=== PATIENT | female | born 1965 | race Caucasian/White ===

== ENCOUNTER 2018-04-15 11:15 | Inpatient (IN) ==
--- NOTE | 2018-04-15 11:30 | Emergency Department Note ---
Disposition Clinical Impression: Upper GI bleed Disposition: Admitted As Inpatient Condition: Good Instructions: Gastrointestinal Bleeding (ED) Referrals: Leo,Bridget Tesfaye CNP [Primary Care Provider] - Time of Disposition: 14:56 General Adult HPI - General Stated complaint: Fall, pain Time Seen by Provider: 04/15/18 11:22 Source: patient Mode of arrival: EMS Limitations: no limitations - History of Present Illness HPI Narrative: This is a 52-year-old female patient who is brought in by EMS because of worsening left-sided chest pain. She states she had 6 days prior to arrival and was told that she had broken to labs. Pain is pleuritic in character. In addition, she states that she has had dark stools in spite of the fact that she stopped taking her iron supplement. She is concerned about possible anemia. - Related Data Home Medications Medication Instructions Recorded Confirmed Cyclobenzaprine [Flexeril] 10 mg PO TID 09/15/15 06/23/16 Ferrous Sulfate 325 mg PO TID 09/15/15 06/23/16 Folic Acid 2 mg PO DAILY 09/15/15 06/23/16 Furosemide [Lasix] 20 mg PO DAILY PRN 09/15/15 06/23/16 Gabapentin [Neurontin] 600 mg PO TID 09/15/15 06/23/16 LORazepam [Ativan] 1 mg PO BID PRN 09/15/15 06/23/16 Nortriptyline HCl 100 mg PO HS 09/15/15 06/23/16 Cyanocobalamin (B-12) [Vitamin B12] 1,000 mcg IM QMONTH 01/31/16 06/23/16 DULoxetine [Cymbalta] 30 mg PO DAILY 01/31/16 06/23/16 Sucralfate [Carafate] 1 gm PO TIDAC 06/13/16 06/23/16 Oxycodone HCl/Acetaminophen 1 each PO Q6H PRN 06/23/16 06/23/16 [Percocet 7.5-325 mg Tablet] Previous Rx's Medication Instructions Recorded Pantoprazole [Protonix] 40 mg PO DAILY #30 vial 09/17/15 Cyclobenzaprine [Flexeril] 10 mg PO HS #12 tablet 04/09/18 Ibuprofen 800 mg PO TID #30 tablet 04/09/18 Levofloxacin [Levaquin] 750 mg PO DAILY #7 tablet 04/13/18 Allergies Allergy/AdvReac Type Severity Reaction Status Date / Time No Known Allergies Allergy Verified 04/15/18 11:28 All systems ED: reviewed and negative except as stated. Cardiovascular: Reports: chest pain Respiratory: Reports: dyspnea Gastrointestinal: Reports: other (Dark stools) Past Medical History - Past Medical History Medical history: Reports: cardiomyopathy, GERD, hypertension, other Surgical history: Reports: hysterectomy Psychiatric history: Reports: anxiety, depression MAMMALOGIST history: Reports: no MAMMALOGIST history - Social History Smoking Status: Current every day smoker Smokeless Tobacco Status: No Alcohol use: Reports: none Drug use: Reports: none Physical Exam - General Limitations: no limitations General appearance: alert, in no apparent distress - Head Head exam: atraumatic, normocephalic, normal inspection - Eye Eye exam: Present: normal appearance, PERRL, EOMI - Chest Chest inspection: Present: normal inspection, symmetric chest wall rise, tenderness (Tenderness on the left lateral chest wall). Absent: rash, abscess - Respiratory Respiratory exam: Present: normal lung sounds bilaterally. Absent: respiratory distress, wheezes - Cardiovascular Cardiovascular exam: Present: regular rate, normal rhythm, normal heart sounds - Abdominal Exam Abdominal exam: Present: soft, Non-Tender. Absent: tenderness, distention, guarding, rebound, rigidity - Rectal Exam Twister In present during exam: Yes Rectal exam: Present: normal inspection, normal rectal tone, black stool - Extremities Exam Extremities exam: Present: normal inspection, pedal edema (There is trace bilateral pedal edema the malleoli). Absent: tenderness - Back Exam Back exam: Absent: CVA tenderness (R), CVA tenderness (L) - Neurological Exam Neurological exam: Present: alert, oriented X3 - Psychiatric Psychiatric exam: Present: normal affect, normal mood - Skin Skin exam: Present: warm, dry, intact, normal color Course Course Narrative: This is a 52-year-old female with report of worsening left-sided pleuritic chest pain. She also reports dark stools concerning for GI bleeding. Vital Signs Temperature 98.1 F 04/15/18 11:27 Pulse Rate 84 04/15/18 11:27 Respiratory Rate 20 04/15/18 11:27 Blood Pressure 129/82 04/15/18 11:27 O2 Sat by Pulse Oximetry 100 04/15/18 11:27 Temperature 98.1 F 04/15/18 11:27 Pulse Rate 95 04/15/18 13:00 Respiratory Rate 20 04/15/18 13:00 Blood Pressure 130/90 04/15/18 13:00 O2 Sat by Pulse Oximetry 97 04/15/18 13:00 Oxygen Delivery Oxygen Delivery Room Air Medical Decision Making - MDM Narrative Medical decision making narrative: This is a 52-year-old female with an upper GI bleed. I discussed her case with Dr. soriano, covering for gastroenterology, who asked that she be admitted to medicine and stated that he will consult. Consult was submitted for him. I discussed her case with the on-call hospitalist, who accepted her for admission. - Lab Data Lab results reviewed: Yes I reviewed the patient's lab results. Lab results narrative: CBC shows anemia at 7.2 and 24.6 BMP was unremarkable Hemoccult was positive Troponin was low Result diagrams: 04/15/18 11:53 04/15/18 11:53 Lab Results 04/15/18 04/15/18 04/15/18 Range/Units 11:53 11:53 12:24 WBC 8.0 (4.3-11.1) K/mcL RBC 2.82 L (3.82-4.97) M/mcL Hgb 7.2 L (11.5-15.4) g/dL Hct 24.6 L (35.3-44.9) % MCV 87.2 (83.0-100.0) fL MCH 25.5 L (28.0-33.3) pg MCHC 29.3 L (31.6-35.5) g/dL RDW 17.8 H (11.5-14.5) % Plt Count 232 (140-400) K/mcL MPV 8.6 L (9.4-12.4) fL Immature Gran % 1.3 (0-4) % Seg Neutrophils % 76.5 % Lymphocytes % 14.2 % Monocytes % 5.2 % Eosinophils % 2.3 % Basophils % 0.5 % Neutrophils # 6.1 (1.6-8.9) K/mcL Lymphocytes # 1.1 (0.6-4.6) K/mcL Monocytes # 0.4 (0.0-1.3) K/mcL Eosinophils # 0.2 (0.0-0.6) K/mcL Basophils # 0.0 (0.0-0.2) K/mcL Nucleated RBCs/100 WBC 0.4 H (0) /100 WBC Sodium 140 (136-145) mEq/L Potassium 4.0 (3.5-5.1) mEq/L Chloride 108 H (98-107) mEq/L Carbon Dioxide 27 (23-29) mEq/L BUN 18 (6-20) mg/dL Creatinine 0.77 (0.60-1.20) mg/dL Est GFR ( Amer) > 60 (> 60) Est GFR (Non-Af Amer) > 60 (> 60) BUN/Creatinine Ratio 23 (6-26) Glucose 98 (70-105) mg/dL Calculated Osmolality 292 (280-300) Calcium 8.5 L (8.6-10.3) mg/dL Troponin I < 0.03 (< 0.04) ng/mL Stool Occult Bld Scrn Positive A (Negative) - EKG Data EKG #1 EKG attestation: Yes I reviewed and interpreted this EKG. EKG results narrative: ECG showed sinus rhythm at 93 bpm, normal intervals, normal axis, slight ST depressions in V5 and V6, slight ST depression in lead 2 and 1, normal T waves Critical Care Time Critical Care Time: Yes Total Critical Care Time: 15 Attestation: 15 minutes of critical care time was invested independent of other billable procedures
[2018-04-15 12:13] LABS: Basophils % 0.5 %; Eosinophils # 0.2 K/mcL (0.0-0.6); Eosinophils % 2.3 %; Hematocrit 24.6 % (35.3-44.9); Hemoglobin 7.2 g/dL (11.5-15.4); Immature Granulocytes % 1.3 % (0-4); Lymphocytes # 1.1 K/mcL (0.6-4.6); Lymphocytes % 14.2 %; Mean Corpuscular HGB Conc 29.3 g/dL (31.6-35.5); Mean Corpuscular Hemoglobin 25.5 pg (28.0-33.3); Mean Corpuscular Volume 87.2 fL (83.0-100.0); Mean Platelet Volume 8.6 fL (9.4-12.4); Monocytes # 0.4 K/mcL (0.0-1.3); Monocytes % 5.2 %; Neutrophils # 6.1 K/mcL (1.6-8.9); Nucleated Red Blood Cells 0.4 /100 WBC (0); Platelet Count 232 K/mcL (140-400); Red Blood Count 2.82 M/mcL (3.82-4.97); Red Cell Distribution Width 17.8 % (11.5-14.5); Segmented Neutrophils % 76.5 %
[2018-04-15] MEDS ORDERED: *HR* FentaNYL (PF) 100 MCG/2 ML VIAL IVP ONE (12:24)
[2018-04-15 12:28] LABS: Troponin I < 0.03 ng/mL (< 0.04)
[2018-04-15 12:38] LABS: Calcium 8.5 mg/dL (8.6-10.3); Carbon Dioxide 27 mEq/L (23-29); Chloride 108 mEq/L (98-107); Glucose 98 mg/dL (70-105); Sodium 140 mEq/L (136-145); eGFR For Non-African Americans > 60 (> 60)
[2018-04-15 13:22] LABS: BUN/Creatinine Ratio 23 (6-26); Blood Urea Nitrogen 18 mg/dL (6-20); Osmolality,Calculated 292 (280-300)
[2018-04-15] MEDS ORDERED: Naloxone 0.4 MG/ML INJ IVP PRN (16:45)
--- NOTE | 2018-04-15 16:54 | Internal Med History&Physical ---
Date of Encounter: 04/15/18 Time of Encounter: 16:52 Internal Medicine - H&P: HPI Admitted From: Home Plans for Post Hospital Care: Home History of present illness: Ms. Boswell is a 52 year old female female who is brought in by EMS because of worsening left-sided chest pain. She states pain stasrted 6 days prior to arrival and was told that she had broken ribs. Pain is pleuritic in character. In addition, she states that she has had dark stools in spite of the fact that she stopped taking her iron supplement. She is concerned about possible anemia. At the ED, her vital signs were stable, labs notable for low hemoglobin (7.2), stool occult blood test was positive. She reported chest pain has resolved after arrival. Dr. Wilson was consulted for possible GI bleeding. Patient will be admitted for observation. Past Med Surg Social Fam HX - Past Medical History Medical history: cardiomyopathy, GERD, hypertension, other Additional medical history: ANEMIA Psychiatric history: anxiety, depression - Past Surgical History Surgical History: hysterectomy Additional surgical history: RIGHT KNEE - Social History Smoking Status: Current every day smoker Smokeless Tobacco Status: No Alcohol use: none Drug use: none - Family History Grandmother Living Status: Hx Family Cardiac Disorders: Yes Mother Living Status: Still Living Hx Family Cardiac Disorders: No Hx Family Respiratory Disorders: No Father Living Status: Still Living Hx Family Cardiac Disorders: No Hx Family Respiratory Disorders: No Internal Medicine - H&P: Meds Cyclobenzaprine [Flexeril] 10 mg PO TID 09/15/15 [History] Furosemide [Lasix] 20 mg PO DAILY PRN 09/15/15 [History] Nortriptyline HCl 100 mg PO HS 09/15/15 [History] Oxycodone HCl/Acetaminophen [Percocet 7.5-325 mg Tablet] 1 each PO Q6H PRN 06/23 [History] Ferrous Sulfate [Iron] 325 mg PO TID 04/15/18 [History] Gabapentin [Neurontin] 800 mg PO TID 04/15/18 [History] 3 Allergy/AdvReac Type Severity Reaction Status Date / Time No Known Allergies Allergy Verified 04/15/18 11:28 All Systems PM: A 10-system review of systems was performed and is negative for pertinent findings except as documented above in the HPI. Review of systems: REVIEW OF SYSTEMS: CONSTITUTIONAL: No weight loss, fever, chills, weakness or fatigue. HEENT: Eyes: No visual loss, blurred vision, double vision or yellow sclerae. Ears, Nose, Throat: No hearing loss, sneezing, congestion, runny nose or sore throat. SKIN: No rash or itching. CARDIOVASCULAR: see HPI. RESPIRATORY: No shortness of breath, cough or sputum. GASTROINTESTINAL: No anorexia, nausea, vomiting or diarrhea. see HPI. GENITOURINARY: No dysuria, urgency, or frequency. NEUROLOGICAL: No headache, dizziness, syncope, paralysis, ataxia, numbness or tingling in the extremities. No change in bowel or bladder control. MUSCULOSKELETAL: No muscle, back pain, joint pain or stiffness. HEMATOLOGIC: No anemia, bleeding or bruising. LYMPHATICS: No enlarged nodes. No history of splenectomy. PSYCHIATRIC: No history of depression or anxiety. ENDOCRINOLOGIC: No reports of sweating, cold or heat intolerance. No polyuria or polydipsia. - Constitutional Vitals: Temp Pulse Resp BP Pulse Ox 98.1 F 96 20 146/91 99 04/15/18 11:27 04/15/18 16:30 04/15/18 16:30 04/15/18 16:30 04/15/18 16:30 General appearance: Present: cooperative, A&O X 3, answers questions appropriately Exam: PHYSICAL EXAMINATION: GENERAL APPEARANCE: The patient is alert, oriented and in no acute distress. HEENT: Head is normocephalic. The sinuses are nontender. Pupils are equal and reactive. The nares are patent. Oropharynx clear without lesions. NECK: Supple without lymphadenopathy. HEART: Regular rate and rhythm. LUNGS: No crackles or wheezes are heard. ABDOMEN: Soft, nontender, nondistended with good bowel sounds heard. Inguinal area is normal. EXTREMITIES: Without cyanosis, clubbing or edema. NEUROLOGICAL: Gross nonfocal. SKIN: Warm and dry without any rash. Internal Med - H&P Results - Labs CBC & Chem 7: 04/15/18 11:53 04/15/18 11:53 - Assessment and plan (1) Chest pain Current Visit: Yes Status: Acute Assessment and plan: 52-year-old female with no history of CAD presented with on and off left-sided chest pain. She also found having severe anemia with hemoglobin 7.2. However, troponin and EKG both insignificant. - Risk factor for CAD including obesity, smoking, and hypertension. However, patient never had a history of CAD. - We will continue cycle troponin, EKG as needed, telemetry monitoring. Will correct severe anemia ruled out demand ischemia related chest pain. - May perform stress test once hemoglobin stable and GI bleeding abates. Qualifiers: Chest pain type: unspecified Qualified Code(s): R07.9 - Chest pain, unspecified (2) Anemia Current Visit: Yes Status: Acute Assessment and plan: Patient has chronic iron deficiency anemia, currently on iron supplement, baseline hemoglobin 8-9. - Patient reported she stopped taking iron supplement for a few days, this could also contaminate with stool sample and cause false positive FOBT. BUN was not significantly elevated but higher than baseline, it is hard to rule out GI bleed. Surgery was consulted and will scope in am. - Continue IV PPI. NPO after MN. Qualifiers: Anemia type: iron deficiency Iron deficiency anemia type: unspecified iron deficiency Qualified Code(s): D50.9 - Iron deficiency anemia, unspecified (3) Mood disorder Current Visit: No Status: Chronic Assessment and plan: Motor stable, continue home medication. (4) Morbid obesity with BMI of 40.0-44.9, adult Current Visit: No Status: Chronic Assessment and plan: Weight control discussed with patient. (5) DVT prophylaxis Current Visit: Yes Status: Acute Assessment and plan: SCDs. - Time Spent With Patient Total time spent is greater than 50% in coordination of care (as documented) at patient's floor/unit and/or counseling patient: Greater than 35 minutes
[2018-04-15 17:43] LABS: Hematocrit 24.3 % (35.3-44.9)
[2018-04-15] MEDS: traMADol 50 MG TABLET PO PRN (18:21)
[2018-04-15] MEDS: Pantoprazole 40 MG VIAL IVP SCH (18:21)
[2018-04-15] MEDS: Ringers Solution, Lactated 1,000 ML IVC SCH (18:21)
[2018-04-15] MEDS: Gabapentin 400 MG CAPSULE PO SCH (21:13)
[2018-04-15] MEDS: Acetaminophen 325 MG TABLET PO PRN (23:22)
[2018-04-16 04:49] LABS: Basophils % 0.4 %; Eosinophils # 0.2 K/mcL (0.0-0.6); Eosinophils % 2.4 %; Hematocrit 23.2 % (35.3-44.9); Hemoglobin 6.8 g/dL (11.5-15.4); Immature Granulocytes % 1.2 % (0-4); Lymphocytes # 1.6 K/mcL (0.6-4.6); Lymphocytes % 20.3 %; Mean Corpuscular HGB Conc 29.3 g/dL (31.6-35.5); Mean Corpuscular Hemoglobin 25.2 pg (28.0-33.3); Mean Corpuscular Volume 85.9 fL (83.0-100.0); Mean Platelet Volume 9.1 fL (9.4-12.4); Monocytes # 0.4 K/mcL (0.0-1.3); Monocytes % 5.8 %; Neutrophils # 5.4 K/mcL (1.6-8.9); Nucleated Red Blood Cells 0.3 /100 WBC (0); Platelet Count 230 K/mcL (140-400); Red Cell Distribution Width 17.5 % (11.5-14.5); Segmented Neutrophils % 69.9 %
[2018-04-16 05:07] LABS: BUN/Creatinine Ratio 19 (6-26); Blood Urea Nitrogen 13 mg/dL (6-20); Carbon Dioxide 26 mEq/L (23-29); Chloride 108 mEq/L (98-107); Glucose 71 mg/dL (70-105); Osmolality,Calculated 291 (280-300); Potassium 3.7 mEq/L (3.5-5.1); Sodium 141 mEq/L (136-145); eGFR For Non-African Americans > 60 (> 60)
[2018-04-16] MEDS: Pantoprazole 40 MG VIAL IVP SCH ×2 (06:01→18:24)
[2018-04-16] MEDS ORDERED: 0.9 % Sodium Chloride 250 ML ONE ×2 (08:06→11:15)
[2018-04-16] MEDS: Gabapentin 400 MG CAPSULE PO SCH ×3 (08:29→21:53)
[2018-04-16 08:30] LABS: Prothrombin Time 11.8 Seconds (9.4-12.1)
[2018-04-16] MEDS: traMADol 50 MG TABLET PO PRN ×2 (08:47→18:24)
--- NOTE | 2018-04-16 08:56 | Electrocardiograph Report ---
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
--- NOTE | 2018-04-16 09:03 | Internal Med Progress Note ---
Hospitalist Progress Note - Encounter Date of Encounter: 04/16/18 Time of Encounter: 09:03 - Subjective Interval History: Pt denies epigastric pain. Mother at bedside. Pt reports prior history of EGD and GI bleed. Denies melena or hematochezia at this time. HAs not had BM today. - Exam Vitals: Temp Pulse Resp BP Pulse Ox 97.8 F 85 16 119/82 92 04/16/18 08:40 04/16/18 08:40 04/16/18 08:40 04/16/18 08:40 04/16/18 08:40 Exam: PHYSICAL EXAMINATION: GENERAL APPEARANCE: The patient is alert, oriented and in no acute distress. HEENT: Head is normocephalic. The sinuses are nontender. Pupils are equal and reactive. The nares are patent. Oropharynx clear without lesions. NECK: Supple without lymphadenopathy. HEART: Regular rate and rhythm. LUNGS: No crackles or wheezes are heard. ABDOMEN: Soft, nontender, nondistended with good bowel sounds heard. Inguinal area is normal. EXTREMITIES: Without cyanosis, clubbing or edema. NEUROLOGICAL: Gross nonfocal. SKIN: Warm and dry without any rash. - Assessment and Plan (1) Acute chest pain Current Visit: Yes Status: Acute Assessment and Plan: CP more likely GI related. Troponin neg x 2 so far. EKG sinus arrhythmia. (2) Normocytic anemia due to blood loss Current Visit: Yes Status: Acute Assessment and Plan: Severe anemia. 2 units of blood ordered and on second unit now. Will continue to monitor hgb. Surgery consulted to see and aware of consult. Possible EGD. (3) Elevated d-dimer Current Visit: Yes Status: Acute Assessment and Plan: Not sure why D dimer was repeated but CTA chest 04/13/18 negative for acute PE. Will also check LE doppler or good measure. No indication for anticoagulation at this time. (4) Mood disorder Current Visit: Yes Status: Acute Assessment and Plan: Continue home meds (5) Morbid obesity Current Visit: Yes Status: Acute Assessment and Plan: Life style modification such as diet and exercise recommended. (6) Hernia Current Visit: Yes Status: Acute Assessment and Plan: Large hiatal hernia. Pt aware. May follow up out pt with surgery. (7) Thyroid enlarged Current Visit: Yes Status: Acute Assessment and Plan: Will check TSH, FT4, and T3 levels, WIll check ultrasound of thyroid gland DVT Prophylaxis: SCD's - Summary of Assessment and Plan Summary of Assessment and Plan: 52-year-old female with no history of CAD presented with on and off left-sided chest pain. She also found having severe anemia with hemoglobin 7.2. However, troponin and EKG both insignificant. - Time Spent with Patient Total time spent is greater than 50% in coordination of care (as documented) at patient's floor/unit and/or counseling patient: less than 15 minutes Plan of Care Discussed with: patient Internal Medicine: Result - Labs CBC & Chem 7: 04/16/18 03:48 04/16/18 03:48 Labs: Short CBC 04/15/18 04/16/18 Range/Units 17:29 03:48 WBC 7.6 (4.3-11.1) K/mcL Hgb 7.0 L 6.8 L (11.5-15.4) g/dL Hct 24.3 L 23.2 L (35.3-44.9) % Plt Count 230 (140-400) K/mcL Neutrophils # 5.4 (1.6-8.9) K/mcL BMP 04/16/18 03:48 Sodium 141 Potassium 3.7 Chloride 108 H Carbon Dioxide 26 BUN 13 Creatinine 0.67 Glucose 71 Calcium 8.0 L Cardiac Enzymes 04/15/18 04/16/18 Range/Units 17:29 03:48 Troponin I < 0.03 < 0.03 (< 0.04) ng/mL - ABG Interpretation ABG results: PT/INR, D-dimer PT 11.8 Seconds (9.4-12.1) 04/16/18 07:58 D-Dimer 1014 ng/mLFEU (0-500) H 04/16/18 03:48 - VTE Documentation of Mechanical Device: Intermittent pneumatic compression device Consult Discharge Plan - Plan Referrals: Bridget Bailey CNP [Primary Care Provider] -
--- NOTE | 2018-04-16 14:14 | Event Note ---
Date of Encounter: 04/16/18 Time of Encounter: 13:45 General Surgery - provided GI hemorrhage coverage. The patient was seen and examined. Patient is currently in no acute distress and appears to be hemodynamically stable. Review of labs indicate a rather lengthy history of anemia dating back to at least 2016. The patient describes an upper GI hemorrhage related to peptic ulcer disease approximately 2 years ago. Current history is notable for recent fall with injury to the left shoulder and ribs. There was a questionable rib fracture. Treatment for this injury included ibuprofen 600 mg 36-8 hours as needed for pain. The patient reports melena for the past 3 days with falling hemoglobin. Hemoglobin this morning 6.8. 2 units of packed red blood cells have been ordered and are still infusing. Impression: Worsening anemia most likely due to upper GI hemorrhage. Suspected recurrent peptic ulcer disease related to nonsteroidal inflammatory drug use Plan: Complete the present transfusion, check H&H Possible EGD Complete consultation and further recommendations to follow
[2018-04-16] MEDS: Ringers Solution, Lactated 1,000 ML IVC SCH (16:05)
[2018-04-16 17:46] LABS: Hematocrit 29.9 % (35.3-44.9)
[2018-04-16 17:48] LABS: Hemoglobin 9.1 g/dL (11.5-15.4)
[2018-04-16 22:05] LABS: Hematocrit 32.9 % (35.3-44.9); Hemoglobin 9.8 g/dL (11.5-15.4)
[2018-04-17] MEDS: Pantoprazole 40 MG VIAL IVP SCH ×2 (05:52→17:10)
[2018-04-17 08:25] LABS: Basophils % 0.6 %; Eosinophils # 0.1 K/mcL (0.0-0.6); Eosinophils % 2.1 %; Hemoglobin 9.4 g/dL (11.5-15.4); Immature Granulocytes % 1.2 % (0-4); Lymphocytes # 1.1 K/mcL (0.6-4.6); Lymphocytes % 16.3 %; Mean Corpuscular HGB Conc 30.3 g/dL (31.6-35.5); Mean Corpuscular Hemoglobin 26.1 pg (28.0-33.3); Mean Corpuscular Volume 86.1 fL (83.0-100.0); Mean Platelet Volume 8.7 fL (9.4-12.4); Monocytes # 0.3 K/mcL (0.0-1.3); Monocytes % 4.6 %; Neutrophils # 5.1 K/mcL (1.6-8.9); Platelet Count 235 K/mcL (140-400); Red Cell Distribution Width 17.3 % (11.5-14.5); Segmented Neutrophils % 75.2 %
--- NOTE | 2018-04-17 09:22 | Internal Med Progress Note ---
Hospitalist Progress Note - Encounter Date of Encounter: 04/17/18 Time of Encounter: 09:21 - Subjective Interval History: Pt denies epigastric pain. Mother at bedside. Pt reports prior history of EGD and GI bleed. Denies melena or hematochezia at this time. HAs not had BM today. - Exam Vitals: Temp Pulse Resp BP Pulse Ox 98.1 F 92 16 133/88 93 04/17/18 07:02 04/17/18 07:02 04/17/18 07:02 04/17/18 07:02 04/17/18 07:02 Exam: PHYSICAL EXAMINATION: GENERAL APPEARANCE: The patient is alert, oriented and in no acute distress. HEENT: Head is normocephalic. The sinuses are nontender. Pupils are equal and reactive. The nares are patent. Oropharynx clear without lesions. NECK: Supple without lymphadenopathy. HEART: Regular rate and rhythm. LUNGS: No crackles or wheezes are heard. ABDOMEN: Soft, nontender, nondistended with good bowel sounds heard. Inguinal area is normal. EXTREMITIES: Without cyanosis, clubbing or edema. NEUROLOGICAL: Gross nonfocal. SKIN: Warm and dry without any rash. - Assessment and Plan (1) Acute chest pain Current Visit: Yes Status: Acute Assessment and Plan: CP more likely GI related. Troponin neg x 2 so far. EKG sinus arrhythmia. (2) Normocytic anemia due to blood loss Current Visit: Yes Status: Acute Assessment and Plan: Severe anemia. 2 units of blood ordered and on second unit now. Will continue to monitor hgb. Surgery consulted to see and planing possible EGD. (3) Elevated d-dimer Current Visit: Yes Status: Acute Assessment and Plan: Not sure why D dimer was repeated but CTA chest 04/13/18 negative for acute PE. Will also check LE doppler or good measure. No indication for anticoagulation at this time. (4) Mood disorder Current Visit: Yes Status: Acute Assessment and Plan: Resume home meds (5) Morbid obesity Current Visit: Yes Status: Acute Assessment and Plan: Life style modification such as diet and exercise recommended (6) Hernia Current Visit: Yes Status: Acute Assessment and Plan: same as before. Pt asymptomatic (7) Thyroid enlarged Current Visit: Yes Status: Acute Assessment and Plan: TSH 2.855, Free T 3 2.59. Recommend thyroid us out pt DVT Prophylaxis: SCD's - Summary of Assessment and Plan Summary of Assessment and Plan: 52-year-old female with no history of CAD presented with on and off left-sided chest pain. She also found having severe anemia with hemoglobin 7.2. However, troponin and EKG both insignificant. Pt was admitted for evaluation by surgery for possible EGD - Time Spent with Patient Total time spent is greater than 50% in coordination of care (as documented) at patient's floor/unit and/or counseling patient: less than 15 minutes Plan of Care Discussed with: patient Internal Medicine: Result - Labs CBC & Chem 7: 04/17/18 07:58 04/16/18 03:48 Labs: Short CBC 04/16/18 04/16/18 04/17/18 Range/Units 17:16 21:31 07:58 WBC 6.8 (4.3-11.1) K/mcL Hgb 9.1 L D 9.8 L 9.4 L (11.5-15.4) g/dL Hct 29.9 L 32.9 L 31.0 L (35.3-44.9) % Plt Count 235 (140-400) K/mcL Neutrophils # 5.1 (1.6-8.9) K/mcL - ABG Interpretation ABG results: PT/INR, D-dimer PT 11.8 Seconds (9.4-12.1) 04/16/18 07:58 D-Dimer 1014 ng/mLFEU (0-500) H 04/16/18 03:48 - VTE Documentation of Mechanical Device: Intermittent pneumatic compression device Consult Discharge Plan - Plan Referrals: Bridget Bailey CNP [Primary Care Provider] -
[2018-04-17] MEDS: Gabapentin 400 MG CAPSULE PO SCH ×3 (09:23→20:22)
--- NOTE | 2018-04-17 13:35 | General Surgery Consult Note ---
Date of Encounter: 04/17/18 Time of Encounter: 13:05 History of Present Illness Consult date: 04/15/18 Reason for consult: other (anemia; likely UGI source) Requesting physician: Twan Cummings History of present illness: General Surgery - Covering for GI Bleed/foreign body This is a delayed dictation 52-year-old female referred for further evaluation of anemia with suspected upper GI source after presenting to the emergency Department by squad with complaints of worsening left sided chest pain. The patient apparently fell 6 or 7 days prior to arrival with significant trauma to the left shoulder and chest. Was seen in the emergency department at that time with a diagnosis of fractured ribs. She was treated with ibuprofen and discharged home. The patient continues to complain of left shoulder and left sided chest pain along with shortness of breath but also indicates that she has had black tarry stool for the past 3 days. Hemoglobin on 04/13/18 was 8.0 with hematocrit 27.5. On return to the emergency department, 04/15/18, her hemoglobin was 7.0 with hematocrit 23.3. Stool was described as black and was Hemoccult positive. Review of records indicate a long-standing anemia as well as a history of gastric ulcers in September 2015 the patient was evaluated by Dr Avilez at the time. Evaluation included an EGD and colonoscopy, 09/17/15. Colonoscopy demonstrated diverticulosis with no other significant findings. The EGD was notable for multiple gastric ulcers described at the rim of a large hiatal hernia. EGD was repeated by Dr Avilez, 12/16/15 demonstrating healing of the prior gastric ulcers. The patient has described being seen by health program manager, Dr Stover, who prescribed an iron infusion. The patient indicates that is yet to be administered. Since the patient's admission, her status has stabilized. Hemoglobin is currently 9.4 with hematocrit 31.0 following transfusion of 3 units packed red cells. Past medical history: Long-standing anemia dating back to 2015; on further review the patient has demonstrated anemia as remotely as 2013. Additional history includes obesity, cardiomyopathy, gastroesophageal reflux disease/peptic ulcer disease; hypertension; anxiety, depression Surgical history: Hysterectomy; right knee surgery (I believe arthroscopy) Allergies no known drug Medications: Cyclobenzaprine 10 mg by mouth 3 times a day Furosemide 20 mg by mouth daily as needed Nortriptyline 100 mg by mouth daily at bedtime Oxycodone with acetaminophen (Percocet) 7.5/325 mg 1 by mouth every 6 hours when necessary pain Ferrous sulfate 325 mg by mouth 3 times a day - patient indicates this was prescribed per ED following her fall, 04/13/18 Gabapentin 800 mg by mouth 3 times a day Ibuprofen 600 mg by mouth, frequency not recall. This also was prescribed per ED following her fall, 04/13/18 Social history: Patient continues to smoke; she admits to a pack a day for the last 30 years; denies any alcohol or illicit drug use Physical examination revealed an obese female who is no acute distress. On my initial presentation to bedside, 04/16/18, the patient complained of being hungry. She is 1.7 m tall, 138.2 kg, BMI 47.7 The patient was afebrile, hemodynamically stable and has remained so. Current vital signs: 98.1, heart rate 78, RR 18, BP 120/83 Skin was warm without obvious jaundice. No icterus was detected Lungs: Clear bilaterally. The patient complained of chest tenderness on anterior compression as well as on left lateral palpation Cardiac: Rate is regular without obvious murmur Abdomen: Obese, soft, nontender. No appreciable intra-abdominal masses were detected. Bowel sounds were active. Repeat physical examination this day was without change or significant findings. Discussed the clinical situation with Dr Patricia. The patient appears stable. Consensus was to defer EGD unless H&H suggested ongoing / recurrent blood loss Per patient history, and iron infusion had been ordered but not administered. This will be administered during this hospitalization. Plan: Allow regular diet Continue to monitor H&H Iron infusion EGD if suspected recurrent or persistent GI bleed Recommendations: Outpatient follow-up with Pranav Bailey CNP; the patient's PCP Colonoscopy is recommended in 2019 EGD to be considered depending on the patient's response to the current treatment plan I suggest follow-up with Dr. Avilez due to his prior participation in the patient 's care. Past Med Surg Social Fam HX - Past Medical History Medical history: cardiomyopathy, GERD, hypertension, other Additional medical history: ANEMIA Psychiatric history: anxiety, depression - Past Surgical History Surgical History: hysterectomy Additional surgical history: right knee scope - Social History Smoking Status: Current every day smoker Packs per day: 1 Smokeless Tobacco Status: No Alcohol use: none Drug use: none - Family History Grandmother Living Status: Hx Family Cardiac Disorders: Yes Hx Family Cancer: Yes (colon cancer) Hx Family GI Disorders: Yes Mother Living Status: Still Living Hx Family Cardiac Disorders: No Hx Family Respiratory Disorders: No Hx Family Cancer: No Hx Family GI Disorders: No Hx Family Genitourinary Disorders: No Hx Family Endocrine Disorder: No Hx Family Musculoskeletal Disorders: No Hx Family Neuromuscular Disorders: No Hx Family Neurologic Disorders: No Hx Family HEENT Disorders: No Hx Family Autoimmune Disorders: No Hx Family Reproductive Disorders: No Hx Family Psychosocial Disorders: No Hx Family Medical Disorders: No Father Living Status: Still Living Hx Family Cardiac Disorders: Yes ([place], 6 stents) Hx Family Respiratory Disorders: No Hx Family Cancer: No Hx Family GI Disorders: No Hx Family Genitourinary Disorders: No Hx Family Endocrine Disorder: No Hx Family Musculoskeletal Disorders: No Hx Family Neuromuscular Disorders: No Hx Family Neurologic Disorders: No Hx Family HEENT Disorders: No Hx Family Autoimmune Disorders: No Hx Family Reproductive Disorders: No Hx Family Psychosocial Disorders: No Hx Family Medical Disorders: No Medications and Allergies Cyclobenzaprine [Flexeril] 10 mg PO TID 09/15/15 [History] Furosemide [Lasix] 20 mg PO DAILY PRN 09/15/15 [History] Nortriptyline HCl 100 mg PO HS 09/15/15 [History] Oxycodone HCl/Acetaminophen [Percocet 7.5-325 mg Tablet] 1 each PO Q6H PRN 06/23 [History] Ferrous Sulfate [Iron] 325 mg PO TID 04/15/18 [History] Gabapentin [Neurontin] 800 mg PO TID 04/15/18 [History] 3 Allergy/AdvReac Type Severity Reaction Status Date / Time No Known Allergies Allergy Verified 04/15/18 11:28 Review of Systems All systems PM: The remainder of the systems were reviewed and are negative General Surgery Exam Initial Vital Signs Temp Pulse Resp BP Pulse Ox 98.1 F 84 20 129/82 100 04/15/18 11:27 04/15/18 11:27 04/15/18 11:27 04/15/18 11:27 04/15/18 11:27 Exam Initial Vital Signs Temp Pulse Resp BP Pulse Ox 98.1 F 84 20 129/82 100 04/15/18 11:27 04/15/18 11:27 04/15/18 11:27 04/15/18 11:27 04/15/18 11:27 Results - Labs 04/17/18 07:58 04/16/18 03:48 Abnormal lab results RBC 3.60 M/mcL (3.82-4.97) L 04/17/18 07:58 Hgb 9.4 g/dL (11.5-15.4) L 04/17/18 07:58 Hct 31.0 % (35.3-44.9) L 04/17/18 07:58 MCH 26.1 pg (28.0-33.3) L 04/17/18 07:58 MCHC 30.3 g/dL (31.6-35.5) L 04/17/18 07:58 RDW 17.3 % (11.5-14.5) H 04/17/18 07:58 MPV 8.7 fL (9.4-12.4) L 04/17/18 07:58 Nucleated RBCs/100 WBC 0.3 /100 WBC (0) H 04/16/18 03:48 D-Dimer 1014 ng/mLFEU (0-500) H 04/16/18 03:48 Chloride 108 mEq/L (98-107) H 04/16/18 03:48 Calcium 8.0 mg/dL (8.6-10.3) L 04/16/18 03:48 Stool Occult Bld Scrn Positive (Negative) A 04/15/18 12:24 Thyroid panel 04/16/18 Range/Units 17:16 TSH 2.855 (0.340-5.600) mcIU/mL Pituitary panel 04/16/18 Range/Units 17:16 TSH 2.855 (0.340-5.600) mcIU/mL All other labs normal. Consult Discharge Plan - Plan Referrals: Leo,Bridget Tesfaye CNP [Primary Care Provider] -
[2018-04-17] MEDS ORDERED: Iron Sucrose Complex 400 MG in 0.9 % Sodium Chloride 250 ML IVPB ONE (16:26)
[2018-04-18] MEDS: Pantoprazole 40 MG VIAL IVP SCH ×2 (05:58→17:04)
[2018-04-18 07:50] LABS: Basophils % 0.3 %; Eosinophils # 0.2 K/mcL (0.0-0.6); Hematocrit 30.1 % (35.3-44.9); Hemoglobin 8.9 g/dL (11.5-15.4); Immature Granulocytes % 1.2 % (0-4); Lymphocytes # 0.8 K/mcL (0.6-4.6); Lymphocytes % 12.7 %; Mean Corpuscular HGB Conc 29.6 g/dL (31.6-35.5); Mean Corpuscular Hemoglobin 25.6 pg (28.0-33.3); Mean Corpuscular Volume 86.5 fL (83.0-100.0); Mean Platelet Volume 9.2 fL (9.4-12.4); Monocytes # 0.4 K/mcL (0.0-1.3); Monocytes % 6.3 %; Neutrophils # 4.6 K/mcL (1.6-8.9); Platelet Count 249 K/mcL (140-400); Red Blood Count 3.48 M/mcL (3.82-4.97); Red Cell Distribution Width 17.5 % (11.5-14.5); Segmented Neutrophils % 76.5 %
[2018-04-18] MEDS: Gabapentin 400 MG CAPSULE PO SCH ×3 (08:54→20:31)
[2018-04-18] MEDS: traMADol 50 MG TABLET PO PRN (12:03)
--- NOTE | 2018-04-18 13:32 | Internal Med Progress Note ---
Hospitalist Progress Note - Encounter Date of Encounter: 04/18/18 Time of Encounter: 10:15 - Subjective Interval History: Patient denies any epigastric or abdominal pain denies having any bowel movement during hospital stay states that her last BM was 5 days ago and she does have history of constipation she denies any nausea or vomiting today she denies any chest pain shortness of breath. Today she does have a chief complaint of some left shoulder scapular pain that occurs with a specific movement. States that it hurts the most when she tries to extend and elevate at the shoulder level she rates her pain as a 6 on a pain scale of 10 states that it is episodic and with movement. - Exam Vitals: Temp Pulse Resp BP Pulse Ox 98.1 F 83 16 124/80 91 04/18/18 11:11 04/18/18 11:11 04/18/18 11:11 04/18/18 11:11 04/18/18 11:11 Exam: Vital signs remain stable her O2 at 2 L is 91% and 24/80 she is afebrile - Assessment and Plan (1) Anemia Current Visit: Yes Status: Acute Assessment and Plan: Patient had received 3 units of red packed cells and a iron sucrose injection of 400 mg IV piggyback. Review of lab today shows that she is a hemoglobin that has dropped dropped to 8.9 from 9.4 this is status post from yesterday after receiving now 3 packs of RBCs as well as 400 mg of iron IV piggyback. We will repeat hemoglobin and hematocrit again in the morning if has continued to decrease will consult surgery for a possible endoscopy. Was evaluated per surgical consult and H and H was 9.4 at that time yesterday. Abnormal lab results RBC 3.48 M/mcL (3.82-4.97) L 04/18/18 06:57 Hgb 8.9 g/dL (11.5-15.4) L 04/18/18 06:57 Hct 30.1 % (35.3-44.9) L 04/18/18 06:57 MCH 25.6 pg (28.0-33.3) L 04/18/18 06:57 MCHC 29.6 g/dL (31.6-35.5) L 04/18/18 06:57 RDW 17.5 % (11.5-14.5) H 04/18/18 06:57 MPV 9.2 fL (9.4-12.4) L 04/18/18 06:57 Nucleated RBCs/100 WBC 0.3 /100 WBC (0) H 04/16/18 03:48 D-Dimer 1014 ng/mLFEU (0-500) H 04/16/18 03:48 Chloride 108 mEq/L (98-107) H 04/16/18 03:48 Calcium 8.0 mg/dL (8.6-10.3) L 04/16/18 03:48 Stool Occult Bld Scrn Positive (Negative) A 04/15/18 12:24 (2) Chest pain Current Visit: Yes Status: Acute Assessment and Plan: She denies chest pain today (3) Mood disorder Current Visit: No Status: Chronic Assessment and Plan: Denies any suicidal homicidal ideation or depression today (4) Morbid obesity with BMI of 40.0-44.9, adult Current Visit: No Status: Chronic (5) DVT prophylaxis Current Visit: Yes Status: Acute Assessment and Plan: SCDs. - Time Spent with Patient Total time spent is greater than 50% in coordination of care (as documented) at patient's floor/unit and/or counseling patient: less than 15 minutes Plan of Care Discussed with: patient Internal Medicine: Result - Labs CBC & Chem 7: 04/18/18 06:57 04/16/18 03:48 Labs: Short CBC 04/18/18 Range/Units 06:57 WBC 6.1 (4.3-11.1) K/mcL Hgb 8.9 L (11.5-15.4) g/dL Hct 30.1 L (35.3-44.9) % Plt Count 249 (140-400) K/mcL Neutrophils # 4.6 (1.6-8.9) K/mcL - ABG Interpretation ABG results: PT/INR, D-dimer PT 11.8 Seconds (9.4-12.1) 04/16/18 07:58 D-Dimer 1014 ng/mLFEU (0-500) H 04/16/18 03:48 - Pulse Oximetry Interpretation Digit-Finger Pulse Oximetry Readin Actions taken: none - VTE Documentation of Mechanical Device: Intermittent pneumatic compression device Consult Discharge Plan - Plan Referrals: Bailey,Bridget L, COMMUNICATIONS INTERN [Primary Care Provider] - (1) Anemia Qualifiers: Anemia type: iron deficiency Iron deficiency anemia type: unspecified iron deficiency Qualified Code(s): D50.9 - Iron deficiency anemia, unspecified (2) Chest pain Qualifiers: Chest pain type: unspecified Qualified Code(s): R07.9 - Chest pain, unspecified
[2018-04-19] MEDS: Acetaminophen 325 MG TABLET PO PRN (02:12)
[2018-04-19 05:42] LABS: Basophils % 0.7 %; Eosinophils # 0.2 K/mcL (0.0-0.6); Eosinophils % 3.4 %; Hemoglobin 8.7 g/dL (11.5-15.4); Immature Granulocytes % 1.6 % (0-4); Lymphocytes # 1.2 K/mcL (0.6-4.6); Lymphocytes % 19.5 %; Mean Corpuscular Volume 86.8 fL (83.0-100.0); Mean Platelet Volume 9.5 fL (9.4-12.4); Monocytes # 0.4 K/mcL (0.0-1.3); Monocytes % 6.7 %; Neutrophils # 4.1 K/mcL (1.6-8.9); Platelet Count 232 K/mcL (140-400); Red Blood Count 3.34 M/mcL (3.82-4.97); Red Cell Distribution Width 17.7 % (11.5-14.5); Segmented Neutrophils % 68.1 %
[2018-04-19] MEDS: Pantoprazole 40 MG VIAL IVP SCH ×2 (06:17→17:27)
[2018-04-19] MEDS: traMADol 50 MG TABLET PO PRN ×2 (06:25→21:35)
--- NOTE | 2018-04-19 09:14 | Internal Med Progress Note ---
Hospitalist Progress Note - Encounter Date of Encounter: 04/19/18 Time of Encounter: 09:12 - Subjective Interval History: 52-year-old female with acute on chronic anemia status post 2 units of blood transfusion. Known to have chronic anemia follows with hematology as outpatient. Also follow-up for the past 1 year. Gen. surgery consulted on admission, management is conservative without chronic endoscopy. The patient has no new symptoms, she has no complaints this morning. She continues to be constipated, no melena and no hematemesis. No evidence of source of bleeding. Other complaints which has left shoulder pain are chronic. - Exam Vitals: Temp Pulse Resp BP Pulse Ox 97.8 F 85 18 146/93 99 04/19/18 07:35 04/19/18 07:35 04/19/18 07:35 04/19/18 07:35 04/19/18 07:35 Exam: VSS Gen: Obese, NAD HEENT: Atraumatic, not pale, sclera anicteric, moist oral mucosa Chest: CTAB Heart: S1, S2 only, no m/g/r Abdomen: Obese, not tender Extremities: NO edema Neuro: AAOX3, no facial paralysis,deficits, moves all limbs spontaneously. - Assessment and Plan (1) Chest pain Current Visit: Yes Status: Acute Assessment and Plan: Inactive Likely due to demand ischemia from anemia upon arrival. EKG unremarkable troponin negative 2. No further workup necessary. (2) Anemia Current Visit: Yes Status: Acute Assessment and Plan: Acute on chronic s/p 3 units RBCs and iron infusion No evidence of bleed Hemodynamically stable and history of use of NSAIDs for left shoulder pain prior to arrival, surgery consulted, conservative measures to continue to monitor monitor hemoglobin. If Hemoglobin drops tomorrow for likely EGD. Keep nothing by mouth from midnight. Arrange follow-up with hematology upon discharge as patient was follow-up for her chronic anemia. (3) DVT prophylaxis Current Visit: Yes Status: Acute Assessment and Plan: SCDs. (4) Mood disorder Current Visit: Yes Status: Chronic Assessment and Plan: Denies any suicidal homicidal ideation or depression today Continue home meds (5) Morbid obesity with BMI of 40.0-44.9, adult Current Visit: Yes Status: Chronic Assessment and Plan: Weight control discussed with patient. (6) Thyroid enlarged Current Visit: Yes Status: Acute Assessment and Plan: TSH 2.855, Free T 3 2.59. Recommend thyroid us out pt - Time Spent with Patient Total time spent is greater than 50% in coordination of care (as documented) at patient's floor/unit and/or counseling patient: Internal Medicine: Result - Labs CBC & Chem 7: 04/19/18 04:30 04/16/18 03:48 Labs: Short CBC 04/19/18 Range/Units 04:30 WBC 6.1 (4.3-11.1) K/mcL Hgb 8.7 L (11.5-15.4) g/dL Hct 29.0 L (35.3-44.9) % Plt Count 232 (140-400) K/mcL Neutrophils # 4.1 (1.6-8.9) K/mcL - ABG Interpretation ABG results: PT/INR, D-dimer PT 11.8 Seconds (9.4-12.1) 04/16/18 07:58 D-Dimer 1014 ng/mLFEU (0-500) H 04/16/18 03:48 - VTE Documentation of Mechanical Device: Intermittent pneumatic compression device Consult Discharge Plan - Plan Referrals: Bridget Bailey, TANK FILLER [Primary Care Provider] - (1) Chest pain Qualifiers: Chest pain type: unspecified Qualified Code(s): R07.9 - Chest pain, unspecified (2) Anemia Qualifiers: Anemia type: iron deficiency Iron deficiency anemia type: unspecified iron deficiency Qualified Code(s): D50.9 - Iron deficiency anemia, unspecified
[2018-04-19] MEDS: Gabapentin 400 MG CAPSULE PO SCH ×3 (09:33→21:35)
--- NOTE | 2018-04-19 15:43 | Electrocardiograph Report ---
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
[2018-04-20] MEDS: Pantoprazole 40 MG VIAL IVP SCH ×2 (05:13→17:03)
[2018-04-20 05:24] LABS: Basophils % 0.7 %; Eosinophils # 0.3 K/mcL (0.0-0.6); Eosinophils % 4.5 %; Hematocrit 30.1 % (35.3-44.9); Hemoglobin 8.9 g/dL (11.5-15.4); Lymphocytes # 1.2 K/mcL (0.6-4.6); Lymphocytes % 20.3 %; Mean Corpuscular HGB Conc 29.6 g/dL (31.6-35.5); Mean Corpuscular Hemoglobin 26.2 pg (28.0-33.3); Mean Corpuscular Volume 88.5 fL (83.0-100.0); Mean Platelet Volume 9.4 fL (9.4-12.4); Monocytes # 0.4 K/mcL (0.0-1.3); Monocytes % 6.8 %; Neutrophils # 3.8 K/mcL (1.6-8.9); Platelet Count 243 K/mcL (140-400); Segmented Neutrophils % 66.7 %
[2018-04-20 05:55] LABS: BUN/Creatinine Ratio 15 (6-26); Blood Urea Nitrogen 11 mg/dL (6-20); Calcium 8.5 mg/dL (8.6-10.3); Carbon Dioxide 24 mEq/L (23-29); Chloride 109 mEq/L (98-107); Glucose 72 mg/dL (70-105); Osmolality,Calculated 294 (280-300); Potassium 3.8 mEq/L (3.5-5.1); Sodium 143 mEq/L (136-145); eGFR For Non-African Americans > 60 (> 60)
[2018-04-20] MEDS: Gabapentin 400 MG CAPSULE PO SCH ×3 (08:39→20:35)
[2018-04-20] MEDS: traMADol 50 MG TABLET PO PRN ×2 (09:14→20:35)
[2018-04-20 21:14] LABS: Hematocrit 32.2 % (35.3-44.9); Hemoglobin 9.6 g/dL (11.5-15.4)
--- NOTE | 2018-04-20 21:55 | Internal Med Progress Note ---
Hospitalist Progress Note - Encounter Date of Encounter: 04/20/18 Time of Encounter: 19:00 - Subjective Interval History: SUBJECTIVE: Her left-sided chest pain is relatively mild. She has no problems with her breathing. Denies coughing and wheezing. Denies abdominal pain, nausea and vomiting. She has normal urination. OBJECTIVE: Skin: Free of rash and discoloration. ENMT: Oral/pharyngeal mucosa is normal in appearance. Eyes: Sclera is white. There is no discharge from eyes. Respiratory: Normal breath sounds; no crackles or wheezes. CV: Heart is regular; no gallop or murmur. GI: Abdomen is soft and not tender. There is no palpable mass or visceromegaly. Neuro: There is no focal deficits. Hemoglobin is 9.6 with normal WBC and platelet count. BMP is normal (potassium was 3.8). ASSESSMENT AND PLAN: Left-sided chest pain. Secondary to multiple rib fractures on the left side. Will continue when necessary tramadol. Anemia. Chronic. Stable/under control. GERD. Under control. She is on Protonix. Constipation. She has a the received 3 doses of MiraLAX (in the last 3 days). I will give her 20 mg of Dulcolax. DISPOSITION: I anticipate her to discharge tomorrow; after her constipation is resolved. - Exam Vitals: Temp Pulse Resp BP Pulse Ox 98.6 F 93 16 124/87 90 04/20/18 19:43 04/20/18 19:43 04/20/18 19:43 04/20/18 19:43 04/20/18 19:43 Exam: xx - Assessment and Plan (1) Chest pain Status: Acute (2) Multiple rib fractures Status: Acute (3) Anemia Status: Acute (4) DVT prophylaxis Status: Acute (5) Mood disorder Status: Chronic (6) Morbid obesity with BMI of 40.0-44.9, adult Status: Chronic (7) Thyroid enlarged Status: Acute - Time Spent with Patient Total time spent is greater than 50% in coordination of care (as documented) at patient's floor/unit and/or counseling patient: 25 - 35 minutes Plan of Care Discussed with: patient (and family..) Internal Medicine: Result - Labs CBC & Chem 7: 04/21/18 06:11 04/20/18 04:15 Labs: Short CBC 04/20/18 04/20/18 Range/Units 04:15 20:50 WBC 5.8 (4.3-11.1) K/mcL Hgb 8.9 L 9.6 L (11.5-15.4) g/dL Hct 30.1 L 32.2 L (35.3-44.9) % Plt Count 243 (140-400) K/mcL Neutrophils # 3.8 (1.6-8.9) K/mcL BMP 04/20/18 04:15 Sodium 143 Potassium 3.8 Chloride 109 H Carbon Dioxide 24 BUN 11 Creatinine 0.74 Glucose 72 Calcium 8.5 L - ABG Interpretation ABG results: PT/INR, D-dimer PT 11.8 Seconds (9.4-12.1) 04/16/18 07:58 D-Dimer 1014 ng/mLFEU (0-500) H 04/16/18 03:48 - VTE Documentation of Mechanical Device: Intermittent pneumatic compression device Consult Discharge Plan - Plan Instructions: Omeprazole (By mouth) Additional Instructions: FOLLOW-UP WITH HEMATOLOGY -- IN ABOUT 1 MONTH.. Referrals: Bridget Bailey CNP [Primary Care Provider] - (Hospital follow up appointment requested. Office will call you with the date and time of appointment. ) Prescriptions: Omeprazole [PriLOSEC] 20 mg PO DAILY 30 Days #30 cap (1) Chest pain Qualifiers: Chest pain type: unspecified Qualified Code(s): R07.9 - Chest pain, unspecified (2) Multiple rib fractures Qualifiers: Encounter type: subsequent encounter Fracture type: closed Laterality: left Fracture healing: with routine healing Qualified Code(s): S22.42XD - Multiple fractures of ribs, left side, subsequent encounter for fracture with routine healing (3) Anemia Qualifiers: Anemia type: iron deficiency Iron deficiency anemia type: unspecified iron deficiency Qualified Code(s): D50.9 - Iron deficiency anemia, unspecified
[2018-04-21] MEDS: Acetaminophen 325 MG TABLET PO PRN (00:21)
[2018-04-21 03:14] LABS: Hematocrit 30.3 % (35.3-44.9); Hemoglobin 8.9 g/dL (11.5-15.4)
[2018-04-21] MEDS: Pantoprazole 40 MG VIAL IVP SCH (06:11)
[2018-04-21 06:46] LABS: Basophils % 0.5 %; Eosinophils # 0.2 K/mcL (0.0-0.6); Eosinophils % 3.4 %; Hematocrit 30.3 % (35.3-44.9); Immature Granulocytes % 1.7 % (0-4); Lymphocytes # 1.2 K/mcL (0.6-4.6); Lymphocytes % 18.7 %; Mean Corpuscular HGB Conc 29.7 g/dL (31.6-35.5); Mean Corpuscular Hemoglobin 25.8 pg (28.0-33.3); Mean Corpuscular Volume 86.8 fL (83.0-100.0); Mean Platelet Volume 9.5 fL (9.4-12.4); Monocytes # 0.4 K/mcL (0.0-1.3); Monocytes % 6.5 %; Neutrophils # 4.4 K/mcL (1.6-8.9); Platelet Count 243 K/mcL (140-400); Red Blood Count 3.49 M/mcL (3.82-4.97); Red Cell Distribution Width 18.2 % (11.5-14.5); Segmented Neutrophils % 69.2 %
[2018-04-21] MEDS: Gabapentin 400 MG CAPSULE PO SCH (09:21)
--- NOTE | 2018-04-21 11:57 | Discharge Summary ---
- NOTES TO OUTPATIENT PROVIDER Notes to Outpatient Provider: THE PATIENT NEEDS CBC EVERY 1-2 MONTHS; STARTING IN 2-3 WEEKS.. Date of Encounter: 04/21/18 Time of Encounter: 11:30 - Discharge Diagnosis (1) Chest pain Priority: Primary Status: Acute Qualifiers: Chest pain type: other chest pain Qualified Code(s): R07.89 - Other chest pain; R07.8 - Other chest pain (2) Multiple rib fractures Priority: Primary Status: Acute Qualifiers: Encounter type: subsequent encounter Fracture type: closed Laterality: left Fracture healing: with routine healing Qualified Code(s): S22.42XD - Multiple fractures of ribs, left side, subsequent encounter for fracture with routine healing (3) Anemia Priority: Secondary Status: Chronic Qualifiers: Anemia type: iron deficiency Iron deficiency anemia type: unspecified iron deficiency Qualified Code(s): D50.9 - Iron deficiency anemia, unspecified (4) Mood disorder Priority: Secondary Status: Chronic (5) Morbid obesity with BMI of 40.0-44.9, adult Priority: Secondary Status: Chronic Hospital course: The patient was admitted with worsening of l-sided chest pain. She had injury/ multiple rib fractures on the left side of her chest 6 days before this hospitalization. Her troponin and ecg were normal. We got her chest pain under conrol. We found her to have anemia. It seems to be chronic/stable. It requires outpatient monitoring. She may need hematology consult. Discharge discussed with: patient, nurse - Time Spent with Patient Total time spent providing and/or coordinating discharge services: Greater than 30 minutes (40 minutes) - Discharge Medications Prescriptions: Omeprazole [PriLOSEC] 20 mg PO DAILY 30 Days #30 cap Home Medications: Cyclobenzaprine [Flexeril] 10 mg PO TID 09/15/15 [History] Furosemide [Lasix] 20 mg PO DAILY PRN 09/15/15 [History] Nortriptyline HCl 100 mg PO HS 09/15/15 [History] Oxycodone HCl/Acetaminophen [Percocet 7.5-325 mg Tablet] 1 each PO Q6H PRN 06/23 [History] Ferrous Sulfate [Iron] 325 mg PO TID 04/15/18 [History] Gabapentin [Neurontin] 800 mg PO TID 04/15/18 [History] Docusate [Colace] 100 mg PO BID capsule 04/21/18 [Rx] Omeprazole [PriLOSEC] 20 mg PO DAILY 30 Days #30 cap 04/21/18 [Rx] Allergies/Adverse Reactions: 3 Allergy/AdvReac Type Severity Reaction Status Date / Time No Known Allergies Allergy Verified 04/15/18 11:28 Date of admission: 04/16/18 15:02 Primary care physician: Bridget Bailey CNP Discharging clinician: Wolfgang Bae Anticipated date of discharge: 04/21/18 - Constitutional Vitals: Temp Pulse Resp BP Pulse Ox 97.6 F 84 16 117/76 91 04/21/18 07:57 04/21/18 07:57 04/21/18 07:57 04/21/18 07:57 04/21/18 07:57 General appearance: Present: cooperative, A&O X 3, answers questions appropriately Exam: xx - Patient Status Disposition: Home, Self-Care Condition: Good Functional capacity at discharge: independent ambulation Overall status at discharge: patient is back to baseline - Discharge Instructions Instructions: Omeprazole (By mouth) Follow Up With: Bridget Bailey CNP [Primary Care Provider] - (Hospital follow up appointment requested. Office will call you with the date and time of appointment. ) Forms: ED Satisfaction Letter, Inpatient Work/School Release Additional Instructions: FOLLOW-UP WITH HEMATOLOGY -- IN ABOUT 1 MONTH.. - Diet and Activity Activity: resume usual activities as tolerated Diet: regular diet - VTE Reasons for not Prescribing Prophylaxis: Medical contraindication (WORENING OF ANEMIA..) Documentation of Mechanical Device: Intermittent pneumatic compression device Deep Vein Thrombosis/Pulmonary Embolism Present on Admission: No
[2018-04-21 12:08] VITALS: BP 127/71
== END 2018-04-21 13:43 | disposition home or self-care (01) | DRG 862 ==
LOC: EMEROOARM 11:15 → 3BNU 11:15 → SUATTDRO 04-16 15:02
PROVIDERS: ADMIT Internal Medicine; ATTEND Internal Medicine

== ENCOUNTER 2018-08-12 17:41 | Inpatient (IN) ==
[2018-08-12 18:25] LABS: Basophils # 0.1 K/mcL (0.0-0.2); Basophils % 0.5 %; Eosinophils # 0.2 K/mcL (0.0-0.6); Eosinophils % 1.4 %; Hematocrit 40.2 % (35.3-44.9); Immature Granulocytes % 0.9 % (0-4); Lymphocytes # 2.4 K/mcL (0.6-4.6); Lymphocytes % 16.1 %; Mean Corpuscular HGB Conc 29.9 g/dL (31.6-35.5); Mean Corpuscular Hemoglobin 29.1 pg (28.0-33.3); Mean Corpuscular Volume 97.3 fL (83.0-100.0); Mean Platelet Volume 9.6 fL (9.4-12.4); Monocytes # 0.9 K/mcL (0.0-1.3); Monocytes % 5.8 %; Neutrophils # 11.1 K/mcL (1.6-8.9); Platelet Count 175 K/mcL (140-400); Red Blood Count 4.13 M/mcL (3.82-4.97); Red Cell Distribution Width 19.6 % (11.5-14.5); Segmented Neutrophils % 75.3 %
[2018-08-12 18:48] LABS: Troponin I < 0.03 ng/mL (< 0.04)
[2018-08-12 18:56] LABS: BUN/Creatinine Ratio 16 (6-26); Blood Urea Nitrogen 14 mg/dL (6-20); Calcium 8.9 mg/dL (8.6-10.3); Carbon Dioxide 25 mEq/L (23-29); Chloride 103 mEq/L (98-107); Glucose 86 mg/dL (70-105); Osmolality,Calculated 286 (280-300); Potassium 4.5 mEq/L (3.5-5.1); Sodium 138 mEq/L (136-145); eGFR For Non-African Americans > 60 (> 60)
[2018-08-12] MEDS ORDERED: Ipratropium/Albuterol Neb 3 ML IH ONE ×2 (21:02→22:37)
--- NOTE | 2018-08-12 21:06 | Emergency Department Note ---
Disposition Clinical Impression: Hypoxia, History of smoking Pneumonia Qualifiers: Pneumonia type: due to unspecified organism Laterality: unspecified laterality Lung location: unspecified part of lung Qualified Code(s): J18.9 - Pneumonia, unspecified organism Disposition: Admitted As Inpatient Condition: Fair Time of Disposition: 01:02 General Adult HPI - General Chief complaint: ED Shortness of Breath/Dyspnea Stated complaint: SOB, Chest tightness, bump right arm Time Seen by Provider: 08/12/18 20:52 Source: patient Mode of arrival: ambulatory Limitations: no limitations Nursing Notes Reviewed: Yes Vital Signs Reviewed: Yes - History of Present Illness HPI Narrative: 53-year-old female persists for evaluation of dyspnea. Patient states she has a recent hospitalization over the past month. Patient was made for pneumonia discharge. Patient did not significantly improve and went to urgent care and was placed on Levaquin. Patient states she completed Levaquin of proximal couple weeks ago. Since in the patient has noted progressive worsening dyspnea. Patient noted shortness of breath worse with exertion. States she has difficult time walking across her hallway. Patient also notes associated chest discomfort and pain. Patient states that the pain is worse with exertion but does not entirely resolve with rest. Patient notes a nonproductive cough. No fevers. No abdominal pain nausea vomiting. No history of heart failure or heart attacks. No history of COPD or lung disease. Patient does not have a history of any PE or DVT in the past. Patient has been having some lower extension weakness. Two-pillow orthopnea. Patient incidentally was complaining of pain primarily on the right forearm in association with a nodule. Patient states that that arose approximately a week ago. Denies any trauma to the area. Denies any history of any autoimmune diseases. Pain Scale: 7 - Related Data Home Medications Medication Instructions Recorded Confirmed RX: Cyclobenzaprine [Flexeril] 10 mg PO TID 09/15/15 07/13/18 RX: Furosemide [Lasix] 20 mg PO DAILY PRN 09/15/15 07/13/18 RX: Oxycodone HCl/Acetaminophen 1 each PO Q6H PRN 06/23/16 07/13/18 [Percocet 7.5-325 mg Tablet] RX: Ferrous Sulfate [Iron] 325 mg PO TID 04/15/18 07/13/18 RX: Gabapentin [Neurontin] 800 mg PO TID 04/15/18 07/13/18 RX: Aspirin [Lo-Dose Aspirin EC] 81 mg PO DAILY 07/13/18 07/13/18 RX: Cyanocobalamin (Vitamin B-12) 1,000 mcg PO DAILY 07/13/18 07/13/18 [Vitamin B-12] RX: FLUoxetine HCl [Prozac] 40 mg PO DAILY 07/13/18 07/13/18 RX: Magnesium Oxide [Magnesium] 400 mg PO DAILY 07/13/18 07/13/18 RX: Nortriptyline HCl 150 mg PO HS 07/17/18 07/17/18 Previous Rx's Medication Instructions Recorded RX: Docusate [Colace] 100 mg PO BID capsule 04/21/18 RX: Omeprazole [PriLOSEC] 20 mg PO DAILY 30 Days #30 cap 04/21/18 RX: Metoprolol [Lopressor] 50 mg PO BID 30 Days #30 tablet 07/18/18 RX: GuaiFENesin/Dextromethorphan 10 ml PO QID PRN #240 ml 07/31/18 [Tussin Dm Syrup] Allergies Allergy/AdvReac Type Severity Reaction Status Date / Time No Known Allergies Allergy Verified 07/31/18 17:55 All systems ED: reviewed and negative except as stated. Constitutional: Denies: fever Cardiovascular: Denies: chest pain Respiratory: Reports: cough, dyspnea. Denies: sputum production Gastrointestinal: Denies: abdominal pain, nausea, vomiting Past Medical History - Past Medical History Source: patient Medical history: Reports: cardiomyopathy, GERD, hypertension, other Surgical history: Reports: hysterectomy Psychiatric history: Reports: anxiety, depression BLADDER BLOWER history: Reports: no BLADDER BLOWER history - Social History Smoking Status: Former smoker Smokeless Tobacco Status: No Alcohol use: Reports: none Drug use: Reports: none Physical Exam - General Limitations: no limitations General appearance: alert, in no apparent distress - Head Head exam: atraumatic, normocephalic, normal inspection - Eye Eye exam: Present: normal appearance - ENT ENT exam: normal exam - Neck Neck exam: Present: normal inspection - Chest Chest inspection: Present: normal inspection, symmetric chest wall rise - Respiratory Respiratory exam: Absent: respiratory distress, accessory muscle use, prolonged expiratory phase - Cardiovascular Cardiovascular exam: Present: regular rate, normal rhythm. Absent: systolic murmur - Abdominal Exam Abdominal exam: Present: soft, Non-Tender. Absent: guarding, rebound - Extremities Exam Extremities exam: Present: normal inspection, pedal edema (2+ b/l) - Back Exam Back exam: Present: normal inspection - Neurological Exam Neurological exam: Present: alert, oriented X3, CN II-XII intact - Skin Skin exam: Present: warm, dry, intact, normal color Course Course Narrative: Patient seen and examined. Patient appears be resting comfortably. Patient has concerning history of unstable angina as well as heart failure with lower leg swelling as well as worsening dyspnea with exertion. Patient does have recent hospitalization. Patient was on antibiotics recently and did not completely resolve. Patient labs ordered from triage. We will obtain a d-dimer as the pat ient is considered low to moderate risk. We will also provide aerosols. - Reevaluation(s) Reevaluation #1: Patient seen and examined. Patient will get repeat nebs. Patient also get appropriate pain control. Patient's d-dimer was elevated. We will get a CTA chest. Time: 22:36 Reevaluation #2: Patient's updated on plan of care. Patient's sleeping resting currently. Will trial of ambulation failed with patient becoming more dyspneic with oxygen saturation of 88%. Time: 00:07 Reevaluation #3: Patient's resting comfortably. Patient is requiring some nasal cannula. Time: 00:59 Vital Signs Temperature 99.6 F 08/12/18 17:47 Pulse Rate 93 08/12/18 17:47 Respiratory Rate 22 08/12/18 17:47 Blood Pressure 119/79 08/12/18 17:47 O2 Sat by Pulse Oximetry 92 08/12/18 17:47 Temperature 99.6 F 08/12/18 20:48 Pulse Rate 83 08/13/18 00:40 Respiratory Rate 18 08/13/18 00:40 Blood Pressure 122/75 08/13/18 00:40 O2 Sat by Pulse Oximetry 94 08/13/18 00:40 Oxygen Delivery Oxygen Delivery Nasal Cannula Medical Decision Making - MDM Narrative Medical decision making narrative: Patient presented for concerns of dyspnea. On exam the patient was requiring some oxygen. Does have history of smoking and likely subclinical COPD. Patient was treated with aerosols and steroids. Patientd recentcnsultation for pneumonia. Patient was on antibiotics over the past Patient was deemed low risk and got a d-dimer which was elevated. Patient's CT of the chest shows no PE however does have inflammation and pneumonitis. Patient also is complaining of right forearm pain with a nodule. Possible erythema nodosum. Patient possibly has an autoimmune or inflammatory component to her already reactive airways. Patient attempted a trial ambulation which was unsuccessful. Also noted the patient was requiring antibiotics for lingula pneumonia in oxygen for admission. - Lab Data Lab results reviewed: Yes I reviewed the patient's lab results. Result diagrams: 08/12/18 18:12 08/12/18 18:12 Lab Results 08/12/18 08/12/18 08/12/18 Range/Units 18:12 18:12 18:12 WBC 14.7 H (4.3-11.1) K/mcL RBC 4.13 (3.82-4.97) M/mcL Hgb 12.0 (11.5-15.4) g/dL Hct 40.2 (35.3-44.9) % MCV 97.3 (83.0-100.0) fL MCH 29.1 (28.0-33.3) pg MCHC 29.9 L (31.6-35.5) g/dL RDW 19.6 H (11.5-14.5) % Plt Count 175 (140-400) K/mcL MPV 9.6 (9.4-12.4) fL Immature Gran % 0.9 (0-4) % Seg Neutrophils % 75.3 % Lymphocytes % 16.1 % Monocytes % 5.8 % Eosinophils % 1.4 % Basophils % 0.5 % Neutrophils # 11.1 H (1.6-8.9) K/mcL Lymphocytes # 2.4 (0.6-4.6) K/mcL Monocytes # 0.9 (0.0-1.3) K/mcL Eosinophils # 0.2 (0.0-0.6) K/mcL Basophils # 0.1 (0.0-0.2) K/mcL D-Dimer (0-500) ng/mLFEU Sodium 138 (136-145) mEq/L Potassium 4.5 (3.5-5.1) mEq/L Chloride 103 (98-107) mEq/L Carbon Dioxide 25 (23-29) mEq/L BUN 14 (6-20) mg/dL Creatinine 0.88 (0.60-1.20) mg/dL Est GFR ( Amer) > 60 (> 60) Est GFR (Non-Af Amer) > 60 (> 60) BUN/Creatinine Ratio 16 (6-26) Glucose 86 (70-105) mg/dL Calculated Osmolality 286 (280-300) Lactic Acid 1.0 (0.5-2.2) mmol/L Calcium 8.9 (8.6-10.3) mg/dL Troponin I < 0.03 (< 0.04) ng/mL B-Natriuretic Peptide (Less than 100) pg/mL 08/12/18 08/12/18 Range/Units 18:12 21:22 WBC (4.3-11.1) K/mcL RBC (3.82-4.97) M/mcL Hgb (11.5-15.4) g/dL Hct (35.3-44.9) % MCV (83.0-100.0) fL MCH (28.0-33.3) pg MCHC (31.6-35.5) g/dL RDW (11.5-14.5) % Plt Count (140-400) K/mcL MPV (9.4-12.4) fL Immature Gran % (0-4) % Seg Neutrophils % % Lymphocytes % % Monocytes % % Eosinophils % % Basophils % % Neutrophils # (1.6-8.9) K/mcL Lymphocytes # (0.6-4.6) K/mcL Monocytes # (0.0-1.3) K/mcL Eosinophils # (0.0-0.6) K/mcL Basophils # (0.0-0.2) K/mcL D-Dimer 990 H (0-500) ng/mLFEU Sodium (136-145) mEq/L Potassium (3.5-5.1) mEq/L Chloride (98-107) mEq/L Carbon Dioxide (23-29) mEq/L BUN (6-20) mg/dL Creatinine (0.60-1.20) mg/dL Est GFR ( Amer) (> 60) Est GFR (Non-Af Amer) (> 60) BUN/Creatinine Ratio (6-26) Glucose (70-105) mg/dL Calculated Osmolality (280-300) Lactic Acid (0.5-2.2) mmol/L Calcium (8.6-10.3) mg/dL Troponin I (< 0.04) ng/mL B-Natriuretic Peptide 70 (Less than 100) pg/mL - Radiology Data Radiology results reviewed: Yes I reviewed the patient's radiology results. Chest X-Ray 08/12/18 17:54 IMPRESSION: No acute process. Hiatal hernia again noted Scarring seen in the right lower lobe D/ / Srini Avendano MD / Srini Avendano MD Interpreting Provider: Srini Avendano MD Forearm X-Ray 08/12/18 21:03 IMPRESSION: Focal soft tissue swelling along the radial aspect of the mid distal forearm without obvious soft tissue mass the. No destructive bone lesion. Further evaluation of this with nonemergent forearm MRI with contrast is recommended. D/ / Thad Irving MD / Thad Irving MD Interpreting Provider: Thad Irving MD Chest CTA 08/12/18 22:19 IMPRESSION: Suboptimal timing contrast bolus. Repeat attempt demonstrates slightly improved contrast bolus without convincing evidence of central or lobar embolism. If there is persistent clinical concern, V/Q scan may be considered. Consolidative changes involving the lingula overall improved may suggest residual pneumonia versus atelectasis. Multifocal ground-glass opacities identified throughout both lungs. This is an upper lobe predominance. Differential considerations include small airways disease, alveolitis underlying hypersensitivity pneumonitis, or edema, please correlate with possible environmental exposures. Moderate to large hiatal hernia. D/ / Michael Giron / Michael Giron Interpreting Provider: Michael Giron - EKG Data EKG #1 EKG attestation: Yes I reviewed and interpreted this EKG. EKG shows normal: sinus rhythm Rate: normal Rhythm: NSR [place]/QRS: left axis deviation, RBBB, IVCD Interpretation: no acute changes, nonspecific ST-T wave changes S.Suha - Li Situation: Demographics Background: Presenting Complaint Assessment: Vital Signs, Course and respsone to treatment, Patient/Family Expectation Recommendation: Barrier(s) to disposition, Recommendation based on pending studies, treatments, or consults Li Report Given to: Dr. Fito Jefferson Repor Time: 00:42 Attestation Statement - Attestation Attestation: Resident Attestation: I examined this patient and my medical decision making was reviewed with the Resident Physician. I agree with the documented findings, disposition and treatment plan as described except to the extent set forth below. We independently had [id number] contact with the patient. Patient presenting for evaluation of shortness of breath and chest tightness. Finished Levaquin approximately 4 weeks ago. Patient quit smoking approximately one month ago after a 30 year smoking history. No inhalers at home. Patient in no acute distress, does have diffuse mild wheezing. Regular rate and rhythm, c omplains of swelling in the lower extremities with nonpitting edema hard to differentiate from subcutaneous tissue and no objective findings. Patient does have a 1 cm x 1 cm lesion to the dorsal aspect of the right forearm. Does have a history of boil abscesses. Is unsure if any of these have ever been drained in the past.
[2018-08-12] MEDS: Aspirin 325 MG TABLET PO ONE ×2 (21:21→21:29)
[2018-08-12] MEDS: predniSONE 20 MG TABLET PO ONE ×2 (21:21→21:28)
[2018-08-12] MEDS ORDERED: Isovue-370 500 ML INFUS..BTL IV ONE (22:19)
[2018-08-12] MEDS ORDERED: Ketorolac 15 MG/ML VIAL IVP ONE (22:35)
[2018-08-13] MEDS ORDERED: Piperacillin/Tazobactam 3.375 GM in 0.9 % Sodium Chloride Mini Bag 100 ML IVPB ONE (00:07)
--- NOTE | 2018-08-13 03:13 | Internal Med History&Physical ---
<Brant Clements - Last Filed: 08/13/18 05:02> Date of Encounter: 08/13/18 Time of Encounter: 03:13 Internal Medicine - H&P: HPI Chief complaint: Shortness of breath Admitted From: Home History of present illness: Ms. Boswell is a 53 year old female who quit smoking 1 month ago with a past medical history of hypertension, paroxysmal atrial fibrillation/flutter not on anticoagulation, GERD, and morbid obesity who presented complaining of chest pain, dyspnea with exertion, and nonproductive cough. Chest pain is substernal, radiates to her back, feels like a pressure on her chest, and does not entirely resolve with rest. Patient reports shortness of breath with walking across the room, lower extremity edema, and she sleeps on two pillows at night due to orthopnea. Of note, patient was admitted 2 times for Legionella pneumonia in the past 4 months and was most recently treated with a 5 day course of Levaquin after visiting urgent care on 07/31/18. She also noticed a bump on her right forearm that has gradually increased in size over the past week and redness over the MCP of her left index finger for the past 1 day. In the ED, patient was found to have an elevated d-dimer and CTA chest was negative for a pulmonary embolism. Multifocal ground glass opacities were identified throughout both lungs as well as consolidative changes involving the lingula suggestive of residual pneumonia versus atelectasis. Patient was started on bronchodilators, broad-spectrum antibiotics, and steroids. She become very dyspneic with ambulation in the ED and her oxygen saturation dropped to 88%. She is very somnolent during the time of my encounter. 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) - Family History Grandmother Living Status: Hx Family Cardiac Disorders: Yes Hx Family Cancer: Yes (colon cancer) Hx Family GI Disorders: Yes Mother Living Status: Still Living Hx Family Cardiac Disorders: No Hx Family Respiratory Disorders: No Hx Family Cancer: No Hx Family GI Disorders: No Hx Family Endocrine Disorder: No Hx Family Neuromuscular Disorders: No Hx Family Neurologic Disorders: No Hx Family HEENT Disorders: No Hx Family Autoimmune Disorders: No Father Living Status: Still Living Hx Family Cardiac Disorders: Yes (SD, 6 stents) Hx Family Respiratory Disorders: No Hx Family Cancer: No Hx Family GI Disorders: No Hx Family Endocrine Disorder: No Hx Family Neuromuscular Disorders: No Hx Family Neurologic Disorders: No Hx Family HEENT Disorders: No Hx Family Autoimmune Disorders: No Internal Medicine - H&P: Meds Cyclobenzaprine [Flexeril] 10 mg PO TID 09/15/15 [History] Furosemide [Lasix] 20 mg PO DAILY PRN 09/15/15 [History] Oxycodone HCl/Acetaminophen [Percocet 7.5-325 mg Tablet] 1 each PO Q6H PRN 06/23/16 [History] Ferrous Sulfate [Iron] 325 mg PO TID 04/15/18 [History] Gabapentin [Neurontin] 800 mg PO TID 04/15/18 [History] Docusate [Colace] 100 mg PO BID capsule 04/21/18 [Rx] Omeprazole [PriLOSEC] 20 mg PO DAILY 30 Days #30 cap 04/21/18 [Rx] Aspirin [Lo-Dose Aspirin EC] 81 mg PO DAILY 07/13/18 [History] Cyanocobalamin (Vitamin B-12) [Vitamin B-12] 1,000 mcg PO DAILY 07/13/18 [History] FLUoxetine HCl [Prozac] 40 mg PO DAILY 07/13/18 [History] Magnesium Oxide [Magnesium] 400 mg PO DAILY 07/13/18 [History] Nortriptyline HCl 150 mg PO HS 07/17/18 [History] Metoprolol [Lopressor] 50 mg PO BID 30 Days #30 tablet 07/18/18 [Rx] GuaiFENesin/Dextromethorphan [Tussin Dm Syrup] 10 ml PO QID PRN #240 ml 07/31/18 [Rx] Allergy/AdvReac Type Severity Reaction Status Date / Time No Known Allergies Allergy Verified 07/31/18 17:55 All Systems PM: A 10-system review of systems was performed and is negative for pertinent findings except as documented above in the HPI. - Constitutional Constitutional: fatigue, lethargy, weakness, no anorexia, no chills, no fever(s), no malaise - EENT Eyes: no blurry vision, no diplopia Nose, mouth and throat: no sinus pain, no sore throat - Cardiovascular Cardiovascular ROS IM: chest pain, dyspnea, dyspnea on exertion, edema, orthopnea, paroxysmal nocturnal dyspnea, no diaphoresis, no palpitations - Respiratory Respiratory: cough, dyspnea, dyspnea on exertion, no hemoptysis, no wheezing, no pain on inspiration, no chest congestion, no excessive phlegm production, no p ain with cough - Gastrointestinal Gastrointestinal: no abdominal pain, no diarrhea, no nausea, no vomiting - Genitourinary Genitourinary: no dysuria, no flank pain, no nocturia, no urinary frequency, no urinary urgency - Musculoskeletal Musculoskeletal ROS IM: no arthralgias, no back pain, no numbness, no tingling - Integumentary Integumentary IM: erythema, new lesions, no rash, no skin ulcer - Neurological Neurological ROS: weakness, no confusion, no dizziness, no numbness, no tingling - Psychiatric Psychiatric: no anxiety, no confusion, no depression - Endocrine Endocrine IM: fatigue, no polydipsia, no polyphagia, no polyuria - Hematologic/Lymphatic Hematologic/Lymphatic: no easy bleeding, no easy bruising, no lymphadenopathy - Constitutional Vitals: Temp Pulse Resp BP Pulse Ox 98 F 86 16 122/75 94 08/13/18 01:50 08/13/18 01:50 08/13/18 01:50 08/13/18 01:50 08/13/18 01:50 General appearance: Present: cooperative, A&O X 3, no acute distress, answers questions appropriately Exam: Somnolent - Head Head exam: Present: atraumatic, normocephalic - Eye Eye exam: Present: EOMI, PERRL, conjuntiva pink, sclera anicteric Pupils: Present: PERRL - ENT ENT exam: Present: mucous membranes dry, normal oropharynx - Neck Neck exam general surgery: Present: supple, trachea midline. Absent: lymphadenopathy - Respiratory Respiratory exam: Present: CTAB. Absent: accessory muscle use, rales, rhonchi, wheezes - Cardiovascular Cardiovascular exam: Present: RRR, +S1, +S2. Absent: diastolic murmur, gallop, rubs, systolic murmur - GI/Abdominal GI/Abdominal exam: Present: normal bowel sounds, soft, no peritoneal signs. Absent: distended, guarding, tenderness - Extremities Exam Extremities exam: Present: pedal edema (1+), warm, radial pulses palpable and symmetrical. Absent: calf tenderness, cyanotic - Neurological Exam Neurological exam: Present: CN II-XII intact, oriented X3, no focal deficits. Absent: facial droop, speech deficit - Psychiatric Psychiatric exam: Present: normal affect, normal mood - Skin Skin exam: Present: dry, erythema (Erythema over the MCP of her left index finger, no joint swelling, 1 cm in nodule tender to palpation over right forearm), intact, warm Internal Med - H&P Results - Labs CBC & Chem 7: 08/12/18 18:12 08/12/18 18:12 Labs: Short CBC 08/12/18 Range/Units 18:12 WBC 14.7 H (4.3-11.1) K/mcL Hgb 12.0 (11.5-15.4) g/dL Hct 40.2 (35.3-44.9) % Plt Count 175 (140-400) K/mcL Neutrophils # 11.1 H (1.6-8.9) K/mcL BMP 08/12/18 18:12 Sodium 138 Potassium 4.5 Chloride 103 Carbon Dioxide 25 BUN 14 Creatinine 0.88 Glucose 86 Calcium 8.9 Cardiac Enzymes 08/12/18 Range/Units 18:12 Troponin I < 0.03 (< 0.04) ng/mL - Pulse Oximetry Interpretation Digit-Finger O2 Sat by Pulse Oximetry: 94 (On 2 L supplemental oxygen) - EKG Data -: EKG Interpreted by Myself EKG shows normal: sinus rhythm (left axis deviation, RBBB, IVCD, no acute changes, nonspecific ST-T wave changes), axis - Impressions ITS Impressions Chest X-Ray 08/12/18 17:54 IMPRESSION: No acute process. Hiatal hernia again noted Scarring seen in the right lower lobe D/ / Srini Avendano MD / Srini Avendano MD Interpreting Provider: Srini Avendano MD Forearm X-Ray 08/12/18 21:03 IMPRESSION: Focal soft tissue swelling along the radial aspect of the mid distal forearm without obvious soft tissue mass the. No destructive bone lesion. Further evaluation of this with nonemergent forearm MRI with contrast is recommended. D/ / Thad Irving MD / Thad Irving MD Interpreting Provider: Thad Irving MD Chest CTA 08/12/18 22:19 IMPRESSION: Suboptimal timing contrast bolus. Repeat attempt demonstrates slightly improved contrast bolus without convincing evidence of central or lobar embolism. If there is persistent clinical concern, V/Q scan may be considered. Consolidative changes involving the lingula overall improved may suggest residual pneumonia versus atelectasis. Multifocal ground-glass opacities identified throughout both lungs. This is an upper lobe predominance. Differential considerations include small airways disease, alveolitis underlying hypersensitivity pneumonitis, or edema, please correlate with possible environmental exposures. Moderate to large hiatal hernia. D/ / Michael Giron / Michael Giron Interpreting Provider: Michael Giron - Assessment and plan (1) Pneumonia Current Visit: Yes Status: Acute Assessment and plan: Patient with recent hospitalization 2 for Legionella pneumonia presents with recurrent shortness of breath, cough, and leukocytosis WBC 14.7 CTA chest revealed multifocal ground glass opacities throughout both lungs as well as consolidative changes involving the lingula suggestive of residual pneumonia versus atelectasis. Urine Legionella and strep pneumo antigens pending Patient was started on bronchodilators, broad-spectrum antibiotics, and steroids. She is very somnolent on exam, ABG pending She become very dyspneic with ambulation in the ED and her oxygen saturation dropped to 88%. Encourage incentive spirometry. Qualifiers: Pneumonia type: due to unspecified organism Laterality: unspecified laterality Lung location: unspecified part of lung Qualified Code(s): J18.9 - Pneumonia, unspecified organism (2) Cardiomyopathy Current Visit: Yes Status: Acute Assessment and plan: Echo on 07/15/18 revealed LVEF 55-60% with thickened pericardium and annulus reversus suggestive of constrictive physiology. Cardiac CT was recommended at that time but not performed. Today patient presents with exertional dyspnea, chest pain, pedal edema, orthopnea, and paroxysmal nocturnal dyspnea. EKG revealed left axis deviation, RBBB, IVCD, nonspecific ST-T wave changes, no acute changes from previous EKG Qualifiers: Cardiomyopathy type: unspecified Qualified Code(s): I42.9 - Cardiomyopathy, unspecified (3) Mass of soft tissue of right upper extremity Current Visit: Yes Status: Acute Assessment and plan: Patient raised tender nodule on her right forearm that has gradually increased in size over the past week. X-ray revealed focal soft tissue swelling along the radial aspect of the mid distal forearm without obvious soft tissue mass the. No destructive bone lesion. RUE ultrasound pending Continue antibiotics for possible underlying abscess (4) Hypertension Current Visit: No Status: Chronic Assessment and plan: Resume home meds once verified. Qualifiers: Hypertension type: essential hypertension Qualified Code(s): I10 - Essential (primary) hypertension (5) GERD (gastroesophageal reflux disease) Current Visit: No Status: Chronic Assessment and plan: Continue PPI Qualifiers: Esophagitis presence: esophagitis presence not specified Qualified Code(s): K21.9 - Gastro-esophageal reflux disease without esophagitis (6) Morbid obesity with BMI of 45.0-49.9, adult Current Visit: Yes Status: Chronic Assessment and plan: Lifestyle modification (7) DVT prophylaxis Current Visit: No Status: Acute Assessment and plan: Heparin subcutaneous - Time Spent With Patient Total time spent is greater than 50% in coordination of care (as documented) at patient's floor/unit and/or counseling patient: <EnmanueltrentonfabianoKylee Blackwell - Last Filed: 08/13/18 06:42> Date of Encounter: 08/13/18 Internal Medicine - H&P: HPI History of present illness: Ms. Boswell is a 53 year old female All Systems PM: A 10-system review of systems was performed and is negative for pertinent findings except as documented above in the HPI. - Constitutional Vitals: Temp Pulse Resp BP Pulse Ox 98 F 86 20 122/75 92 08/13/18 01:50 08/13/18 01:50 08/13/18 04:46 08/13/18 01:50 08/13/18 04:46 Internal Med - H&P Results - Labs CBC & Chem 7: 08/13/18 05:10 08/13/18 05:10 Labs: Short CBC 08/12/18 08/13/18 Range/Units 18:12 05:10 WBC 14.7 H 9.4 (4.3-11.1) K/mcL Hgb 12.0 11.2 L (11.5-15.4) g/dL Hct 40.2 36.1 (35.3-44.9) % Plt Count 175 165 (140-400) K/mcL Neutrophils # 11.1 H 8.5 (1.6-8.9) K/mcL BMP 08/12/18 08/13/18 18:12 05:10 Sodium 138 137 Potassium 4.5 4.4 Chloride 103 106 Carbon Dioxide 25 26 BUN 14 12 Creatinine 0.88 0.82 Glucose 86 186 H Calcium 8.9 8.8 Cardiac Enzymes 08/12/18 08/13/18 Range/Units 18:12 05:10 Troponin I < 0.03 < 0.03 (< 0.04) ng/mL - ABG Interpretation ABG results: 08/13/18 05:20 ABG pH 7.37 ABG pCO2 47 H ABG pO2 84 L ABG HCO3 27 ABG Total CO2 28 H ABG O2 Saturation 96 ABG Base Excess 1 - Impressions ITS Impressions Chest X-Ray 08/12/18 17:54 IMPRESSION: No acute process. Hiatal hernia again noted Scarring seen in the right lower lobe D/ / Srini Avendano MD / Srini Avendano MD Interpreting Provider: Srini Avendano MD Forearm X-Ray 08/12/18 21:03 IMPRESSION: Focal soft tissue swelling along the radial aspect of the mid distal forearm without obvious soft tissue mass the. No destructive bone lesion. Further evaluation of this with nonemergent forearm MRI with contrast is recommended. D/ / Thad Irving MD / Thad Irving MD Interpreting Provider: Thad Irving MD Chest CTA 08/12/18 22:19 IMPRESSION: Suboptimal timing contrast bolus. Repeat attempt demonstrates slightly improved contrast bolus without convincing evidence of central or lobar embolism. If there is persistent clinical concern, V/Q scan may be considered. Consolidative changes involving the lingula overall improved may suggest residual pneumonia versus atelectasis. Multifocal ground-glass opacities identified throughout both lungs. This is an upper lobe predominance. Differential considerations include small airways disease, alveolitis underlying hypersensitivity pneumonitis, or edema, please correlate with possible environmental exposures. Moderate to large hiatal hernia. D/ / Michael Giron / Michael Giron Interpreting Provider: Michael Giron - Time Spent With Patient Total time spent is greater than 50% in coordination of care (as documented) at patient's floor/unit and/or counseling patient: - Attending Attestation I performed a history and physical examination the patient and discussed her management with the resident. I reviewed the resident's note and agree with the assessment and plan of care.
[2018-08-13] MEDS ORDERED: Ondansetron 4 MG/2 ML VIAL IVP PRN (03:34)
[2018-08-13] MEDS ORDERED: Naloxone 0.4 MG/ML INJ IVP PRN (03:34)
[2018-08-13] MEDS ORDERED: Acetaminophen 325 MG TABLET PO PRN (03:34)
[2018-08-13] MEDS ORDERED: 0.9 % Sodium Chloride 1,000 ML IVC SCH ×2 (03:45→04:26)
[2018-08-13] MEDS ORDERED: Vancomycin (wt based) 1,000 MG VIAL IVPB SCH (04:00)
[2018-08-13] MEDS: Ipratropium/Albuterol Neb 3 ML IH SCH ×6 (04:46→23:42)
[2018-08-13] MEDS: *HR* Heparin 5,000 UNIT/ML VIAL SQ SCH ×3 (05:20→21:16)
[2018-08-13 05:23] LABS: ABG Base Excess 1 mEq/L (-2 to 3); ABG HCO3 27 mEq/L (21-27); ABG Oxygen Saturation 96 % (95-98); ABG PCO2 47 mmHg (35-45); ABG PH 7.37 pH Units (7.32-7.45); ABG PO2 84 mmHg (85-104); ABG TCO2 28 mEq/L (20-26)
[2018-08-13 05:38] LABS: Basophils % 0.3 %; Hematocrit 36.1 % (35.3-44.9); Hemoglobin 11.2 g/dL (11.5-15.4); Immature Granulocytes % 0.9 % (0-4); Lymphocytes # 0.6 K/mcL (0.6-4.6); Lymphocytes % 6.6 %; Mean Corpuscular Volume 93.5 fL (83.0-100.0); Mean Platelet Volume 9.6 fL (9.4-12.4); Monocytes # 0.1 K/mcL (0.0-1.3); Monocytes % 1.3 %; Neutrophils # 8.5 K/mcL (1.6-8.9); Platelet Count 165 K/mcL (140-400); Red Blood Count 3.86 M/mcL (3.82-4.97); Red Cell Distribution Width 19.7 % (11.5-14.5); Segmented Neutrophils % 90.9 %
[2018-08-13 05:58] LABS: Troponin I < 0.03 ng/mL (< 0.04)
[2018-08-13 06:02] LABS: BUN/Creatinine Ratio 15 (6-26); Blood Urea Nitrogen 12 mg/dL (6-20); Calcium 8.8 mg/dL (8.6-10.3); Carbon Dioxide 26 mEq/L (23-29); Chloride 106 mEq/L (98-107); Glucose 186 mg/dL (70-105); Osmolality,Calculated 289 (280-300); Potassium 4.4 mEq/L (3.5-5.1); Sodium 137 mEq/L (136-145); eGFR For Non-African Americans > 60 (> 60)
[2018-08-13] MEDS: Piperacillin/Tazobactam 3.375 GM in 0.9 % Sodium Chloride Mini Bag 100 ML IVPB SCH ×2 (09:06→21:06)
[2018-08-13] MEDS: methylPREDNISolone 125 MG/2 ML VIAL IVP SCH ×2 (09:07→21:06)
[2018-08-13] MEDS: Aspirin Enteric Coated 81 MG Tablet PO SCH (09:30)
[2018-08-13] MEDS ORDERED: Aminoglycoside Consult 1 EACH MC ONE (09:46)
--- NOTE | 2018-08-13 17:31 | Discharge Summary ---
- NOTES TO OUTPATIENT PROVIDER Notes to Outpatient Provider: PCP in 5 to 7 days. Recommending out pt stress test Orders not resulted at time of discharge: Pending orders 08/13/18 03:39 Culture,Sputum with Gram Stain [RM] Routine 08/13/18 05:10 Culture,Blood [BC] AM 0400 Procalcitonin AM 0400 08/15/18 17:01 Routine stress test out pt 08/14/18 04:00 Culture,Blood [BC] AM 0400 08/14/18 12:00 Vancomycin,Trough Timed Date of Encounter: 08/13/18 Time of Encounter: 17:29 - Discharge Diagnosis (1) Pneumonia Priority: Primary Status: Acute Assessment and Plan: Residual from previous PNA. Will DC on Omnicef and Zithromax. OMnicef should also cover RUE ?cellulitis. Pt is not SOB. She dneis history of smoking though tobacco use is on past meidcal history. Ambulatory pulse ox on RA 91%, Was 95 % on RA at rest. CTA chest CT/CT angio chest IMPRESSION: Suboptimal timing contrast bolus. Repeat attempt demonstrates slightly improved contrast bolus without convincing evidence of central or lobar embolism. If there is persistent clinical concern, V/Q scan may be considered. Consolidative changes involving the lingula overall improved may suggest residual pneumonia versus atelectasis. Multifocal ground-glass opacities identified throughout both lungs. This is an upper lobe predominance. Differential considerations include small airways disease, alveolitis underlying hypersensitivity pneumonitis, or edema, please correlate with possible environmental exposures. Moderate to large hiatal hernia. Qualifiers: Pneumonia type: due to unspecified organism Laterality: unspecified laterality Lung location: unspecified part of lung Qualified Code(s): J18.9 - Pneumonia, unspecified organism (2) Chest pain Priority: Secondary Status: Resolved Assessment and Plan: Troponin neg x 3. Recommend out pt stress test. Echo 08/05/2019 reviewed Qualifiers: Chest pain type: unspecified Qualified Code(s): R07.9 - Chest pain, unspecified (3) Cardiomyopathy Priority: Secondary Status: Acute Assessment and Plan: Echo on 07/15/18 revealed LVEF 55-60% with thickened pericardium and annulus reversus suggestive of constrictive physiology. EKG revealed left axis deviation, RBBB, IVCD, nonspecific ST-T wave changes, no acute changes from previous EKG. Recommend out pt stress test due to complaint of dyspnea on admission. Qualifiers: Cardiomyopathy type: unspecified Qualified Code(s): I42.9 - Cardiomyopathy, unspecified (4) GERD (gastroesophageal reflux disease) Priority: Secondary Status: Chronic Assessment and Plan: Omeprazole Qualifiers: Esophagitis presence: esophagitis presence not specified Qualified Code(s): K21.9 - Gastro-esophageal reflux disease without esophagitis (5) Hypertension Priority: Secondary Status: Chronic Assessment and Plan: Lopressor Qualifiers: Hypertension type: essential hypertension Qualified Code(s): I10 - Essential (primary) hypertension (6) Mass of soft tissue of right upper extremity Priority: Secondary Status: Acute Assessment and Plan: Mass is read as lipoma. Also noted is ? cellulitis. Will DC on few days of Omnicef US RUE US/US extremity nonvascular RT IMPRESSION: 1. Edematous appearance of the subcutaneous tissues in the region of interest without evidence of a discrete fluid collection. This type of appearance can be seen in the setting of cellulitis. 2. 8 mm rounded lesion demonstrating sonographic characteristics consistent with fat. Diagnostic considerations would include favor a small benign lipoma or a prominent fatty reticulation secondary to the surrounding edema. A lymph node is considered less likely. No follow-up imaging is necessary. (7) Morbid obesity Priority: Secondary Status: Acute Assessment and Plan: Life style modification such as diet and exercise recommended. Hospital course: History of present illness: Dr. Payton/ [facility] Ms. Boswell is a 53 year old female who quit smoking 1 month ago with a past medical history of hypertension, paroxysmal atrial fibrillation/flutter not on anticoagulation, GERD, and morbid obesity who presented complaining of chest pain, dyspnea with exertion, and nonproductive cough. Chest pain is substernal, radiates to her back, feels like a pressure on her chest, and does not entirely resolve with rest. Patient reports shortness of breath with walking across the room, lower extremity edema, and she sleeps on two pillows at night due to orthopnea. Of note, patient was admitted 2 times for Legionella pneumonia in the past 4 months and was most recently treated with a 5 day course of Levaquin after visiting urgent care on 07/31/18. She also noticed a bump on her right forearm that has gradually increased in size over the past week and redness over the MCP of her left index finger for the past 1 day. In the ED, patient was found to have an elevated d-dimer and CTA chest was negative for a pulmonary embolism. Multifocal ground glass opacities were identified throughout both lungs as well as consolidative changes involving the lingula suggestive of residual pneumonia versus atelectasis. Patient was started on bronchodilators, broad-spectrum antibiotics, and steroids. She become very dyspneic with ambulation in the ED and her oxygen saturation dropped to 88%. She is very somnolent during the time of my encounter. Discharge discussed with: patient - Time Spent with Patient Total time spent providing and/or coordinating discharge services: Less than 30 minutes - Discharge Medications Home Medications: Cyclobenzaprine [Flexeril] 10 mg PO TID PRN 09/15/15 [History] Oxycodone HCl/Acetaminophen [Percocet 7.5-325 mg Tablet] 1 each PO Q6H PRN 06/23/16 [History] Ferrous Sulfate [Iron] 325 mg PO TID 04/15/18 [History] Gabapentin [Neurontin] 800 mg PO TID 04/15/18 [History] Omeprazole [PriLOSEC] 20 mg PO DAILY 30 Days #30 cap 04/21/18 [Rx] FLUoxetine HCl [Prozac] 40 mg PO DAILY 07/13/18 [History] Magnesium Oxide [Magnesium] 400 mg PO DAILY 07/13/18 [History] Nortriptyline HCl 150 mg PO HS 07/17/18 [History] Metoprolol [Lopressor] 50 mg PO BID 30 Days #30 tablet 07/18/18 [Rx] Acetaminophen [Tylenol] 325 mg PO Q6HR PRN 08/13/18 [History] Azithromycin [Zithromax] 250 mg PO DAILY 7 Days #7 tablet 08/13/18 [Rx] Cefdinir [Omnicef] 300 mg PO BID 7 Days #14 capsule 08/13/18 [Rx] Allergies/Adverse Reactions: Allergy/AdvReac Type Severity Reaction Status Date / Time No Known Allergies Allergy Verified 08/13/18 11:18 Date of admission: 08/13/18 01:02 Primary care physician: PCP NONE Consults: 08/13/18 03:40 Consult to Nurse Navigator [CONS] Routine Comment: 08/13/18 03:41 Consult to Nurse Navigator [CONS] Routine Comment: Discharging clinician: Ladonna Patricia Anticipated date of discharge: 08/13/18 - Constitutional Vitals: Temp Pulse Resp BP Pulse Ox 98.5 F 115 18 115/65 95 08/13/18 15:57 08/13/18 15:57 08/13/18 15:57 08/13/18 15:57 08/13/18 15:57 General appearance: Present: A&O X 3, morbidly obese, no acute distress, answers questions appropriately Exam: General appearance: Present: cooperative, A&O X 3, no acute distress, answers questions appropriately Exam: - Head Head exam: Present: atraumatic, normocephalic - Eye Eye exam: Present: EOMI, PERRL, conjuntiva pink, sclera anicteric Pupils: Present: PERRL - ENT ENT exam: Present: mucous membranes dry, normal oropharynx - Neck Neck exam general surgery: Present: supple, trachea midline. Absent: lymph adenopathy - Respiratory Respiratory exam: Present: CTAB. Absent: accessory muscle use, rales, rhonchi, wheezes - Cardiovascular Cardiovascular exam: Present: RRR, +S1, +S2. Absent: diastolic murmur, gallop, rubs, systolic murmur - GI/Abdominal GI/Abdominal exam: Present: normal bowel sounds, soft, no peritoneal signs. Absent: distended, guarding, tenderness - Extremities Exam Extremities exam: Present: pedal edema (1+), warm, radial pulses palpable and symmetrical. Absent: calf tenderness, cyanotic. Soft tissue mass RUE due to bening lipoma - Neurological Exam Neurological exam: Present: CN II-XII intact, oriented X3, no focal deficits. Absent: facial droop, speech deficit - Psychiatric Psychiatric exam: Present: normal affect, normal mood - Skin Skin exam: Present: dry, erythema (Erythema over the MCP of her left index finger, no joint swelling, 1 cm in nodule tender to palpation over right forearm), intact, warm - Patient Status Disposition: Home, Self-Care Condition: Good Overall status at discharge: patient is back to baseline - Discharge Instructions Follow Up With: NONE,PCP [Primary Care Provider] - - Diet and Activity Activity: increase activity as tolerated Diet: low fat, low cholesterol, low salt diet
[2018-08-13] MEDS: FLUoxetine 20 MG CAPSULE PO SCH (23:17)
[2018-08-14] MEDS: methylPREDNISolone 125 MG/2 ML VIAL IVP SCH ×2 (00:45→11:39)
[2018-08-14] MEDS: Piperacillin/Tazobactam 3.375 GM in 0.9 % Sodium Chloride Mini Bag 100 ML IVPB SCH ×4 (00:46→21:02)
[2018-08-14] MEDS: Ipratropium/Albuterol Neb 3 ML IH SCH ×5 (04:38→19:42)
[2018-08-14] MEDS: *HR* Heparin 5,000 UNIT/ML VIAL SQ SCH ×3 (05:12→21:01)
[2018-08-14] MEDS ORDERED: Regadenoson 0.4 MG/5 ML SYRINGE IVP ONE (06:05)
[2018-08-14] MEDS ORDERED: FLUoxetine 20 MG CAPSULE PO SCH (09:00)
[2018-08-14] MEDS: Aspirin Enteric Coated 81 MG Tablet PO SCH ×2 (11:40→12:01)
[2018-08-14] MEDS: FLUoxetine 20 MG CAPSULE PO SCH ×2 (11:40→21:20)
--- NOTE | 2018-08-14 14:40 | Internal Med Progress Note ---
Hospitalist Progress Note - Encounter Date of Encounter: 08/14/18 Time of Encounter: 13:20 - Subjective Interval History: Ms. Boswell is a 53 year old female who quit smoking 1 month ago with a past medical history of hypertension, paroxysmal atrial fibrillation/flutter not on anticoagulation, GERD, and morbid obesity who presented complaining of chest pain, dyspnea with exertion, and nonproductive cough. Chest pain is substernal, radiates to her back, feels like a pressure on her chest, and does not entirely resolve with rest. Of note, patient was admitted 2 times for Legionella pneumonia in the past 4 months and was most recently treated with a 5 day course of Levaquin after visiting urgent care on 07/31/18. She also noticed a bump on her right forearm that has gradually increased in size over the past week and redness over the MCP of her left index finger for the past 1 day. In the ED, patient was found to have an elevated d-dimer and CTA chest was negative for a pulmonary embolism. Multifocal ground glass opacities were identified throughout both lungs as well as consolidative changes involving the lingula suggestive of residual pneumonia versus atelectasis. She was admitted in the hospital and placed her on empirical antibiotic as well as steroids. Patient still having intermittent chest discomfort. She did go for nuclear stress test today. - Exam Vitals: Temp Pulse Resp BP Pulse Ox 97.4 F L 96 18 151/94 96 08/14/18 11:45 08/14/18 11:45 08/14/18 11:45 08/14/18 11:45 08/14/18 11:45 Exam: Gen: Alert, awake, Oriented to time,place and person Chest: Diminished breath sounds B/L, Mild wheezing, No crackles, No rales Heart: S1S2+ RRR No murmurs Abd: Soft, NT, BS +, No organomegaly Ext: No edema, pulses are palpable, No calf tenderness Neuro : Benign findings Skin: No rash. - Assessment and Plan (1) Chest pain Current Visit: No Status: Resolved Assessment and Plan: cont on tele so far serial troponin so negative Echo from 08/05/2018 reviewed - showed preserved LVEF no significant vascular dysfunction noticed Cont ASA and BB scheduled for nuclear stress test. Does need 2 days stress test (2) Pneumonia Current Visit: Yes Status: Acute Assessment and Plan: Residual from previous PNA improving continue empirical antibiotic Zosyn (3) Acute exacerbation of COPD with asthma Current Visit: Yes Status: Acute Assessment and Plan: Improving start tapering steroids continue bronchodilator therapy (4) Hypertension Current Visit: No Status: Chronic Assessment and Plan: Stable with current regimen (5) Mass of soft tissue of right upper extremity Current Visit: Yes Status: Acute Assessment and Plan: Reviewed ultrasound seems to be lipoma follow up with PCP as an outpatient (6) GERD (gastroesophageal reflux disease) Current Visit: No Status: Chronic Assessment and Plan: Omeprazole (7) Right forearm cellulitis Current Visit: Yes Status: Acute Assessment and Plan: Improving continuum [place]kel antibiotic Zosyn for now (8) Cardiomyopathy Current Visit: Yes Status: Acute Assessment and Plan: Echo on 07/15/18 revealed LVEF 55-60% with thickened pericardium and annulus reversus suggestive of constrictive physiology. EKG revealed left axis deviation, RBBB, IVCD, nonspecific ST-T wave changes, no acute changes from previous EKG. Recommend out pt stress test due to complaint of dyspnea on admission. (9) Morbid obesity Current Visit: No Status: Acute Assessment and Plan: Life style modification such as diet and exercise recommended. - Time Spent with Patient Total time spent is greater than 50% in coordination of care (as documented) at patient's floor/unit and/or counseling patient: Internal Medicine: Result - Labs CBC & Chem 7: 08/13/18 05:10 08/13/18 05:10 - ABG Interpretation ABG results: ABG ABG pH 7.37 pH Units (7.32-7.45) 08/13/18 05:20 ABG pCO2 47 mmHg (35-45) H 08/13/18 05:20 ABG pO2 84 mmHg (85-104) L 08/13/18 05:20 ABG O2 Saturation 96 % (95-98) 08/13/18 05:20 PT/INR, D-dimer D-Dimer 990 ng/mLFEU (0-500) H 08/12/18 21:22 Consult Discharge Plan - Plan Referrals: NONE,PCP [Primary Care Provider] - Prescriptions: Azithromycin [Zithromax] 250 mg PO DAILY 7 Days #7 tablet Cefdinir [Omnicef] 300 mg PO BID 7 Days #14 capsule (1) Chest pain Qualifiers: Chest pain type: unspecified Qualified Code(s): R07.9 - Chest pain, unspecified (2) Pneumonia Qualifiers: Pneumonia type: due to unspecified organism Laterality: unspecified laterality Lung location: unspecified part of lung Qualified Code(s): J18.9 - Pneumonia, unspecified organism (4) Hypertension Qualifiers: Hypertension type: essential hypertension Qualified Code(s): I10 - Essential (primary) hypertension (6) GERD (gastroesophageal reflux disease) Qualifiers: Esophagitis presence: esophagitis presence not specified Qualified Code(s): K21.9 - Gastro-esophageal reflux disease without esophagitis (8) Cardiomyopathy Qualifiers: Cardiomyopathy type: unspecified Qualified Code(s): I42.9 - Cardiomyopathy, unspecified
[2018-08-14] MEDS: MethylPREDNISolone 40 MG/ML VIAL IVP SCH (18:46)
[2018-08-14] MEDS ORDERED: *HR* Labetalol 20 MG/4 ML SYRINGE IVP ONE (18:53)
[2018-08-14] MEDS ORDERED: Ipratropium/Albuterol Neb 3 ML IH PRN (21:08)
[2018-08-14] MEDS: Gabapentin 400 MG CAPSULE PO SCH (21:19)
[2018-08-15] MEDS: Piperacillin/Tazobactam 3.375 GM in 0.9 % Sodium Chloride Mini Bag 100 ML IVPB SCH ×2 (02:24→08:58)
[2018-08-15] MEDS: *HR* Heparin 5,000 UNIT/ML VIAL SQ SCH (05:08)
[2018-08-15] MEDS: MethylPREDNISolone 40 MG/ML VIAL IVP SCH (05:08)
[2018-08-15] MEDS: Gabapentin 400 MG CAPSULE PO SCH (08:57)
[2018-08-15] MEDS: FLUoxetine 20 MG CAPSULE PO SCH (08:57)
[2018-08-15] MEDS: Aspirin Enteric Coated 81 MG Tablet PO SCH (08:57)
[2018-08-15 11:34] VITALS: BP 147/99
--- NOTE | 2018-08-15 11:36 | Discharge Summary ---
- NOTES TO OUTPATIENT PROVIDER Notes to Outpatient Provider: Follow with PCP in one week. Orders not resulted at time of discharge: Pending orders 08/13/18 03:39 Culture,Sputum with Gram Stain [RM] Routine 08/13/18 05:10 Culture,Blood [BC] AM 0400 08/14/18 04:23 Culture,Blood [BC] AM 0400 08/14/18 07:00 NM annalise perf SPECT multi [NM] Routine Date of Encounter: 08/15/18 Time of Encounter: 11:34 - Discharge Diagnosis (1) Chest pain Priority: Primary Status: Resolved Qualifiers: Chest pain type: unspecified Qualified Code(s): R07.9 - Chest pain, unspecified (2) Pneumonia Priority: Primary Status: Acute Qualifiers: Pneumonia type: due to unspecified organism Laterality: unspecified laterality Lung location: unspecified part of lung Qualified Code(s): J18.9 - Pneumonia, unspecified organism (3) Acute exacerbation of COPD with asthma Priority: Primary Status: Acute (4) Hypertension Priority: Secondary Status: Chronic Qualifiers: Hypertension type: essential hypertension Qualified Code(s): I10 - Essential (primary) hypertension (5) Mass of soft tissue of right upper extremity Priority: Secondary Status: Acute (6) GERD (gastroesophageal reflux disease) Priority: Secondary Status: Chronic Qualifiers: Esophagitis presence: esophagitis presence not specified Qualified Code(s): K21.9 - Gastro-esophageal reflux disease without esophagitis (7) Right forearm cellulitis Priority: Secondary Status: Acute (8) Cardiomyopathy Priority: Secondary Status: Acute Qualifiers: Cardiomyopathy type: unspecified Qualified Code(s): I42.9 - Cardiomyopathy, unspecified (9) Morbid obesity Priority: Secondary Status: Acute Hospital course: Ms. Boswell is a 53 year old female who quit smoking 1 month ago with a past medical history of hypertension, paroxysmal atrial fibrillation/flutter not on anticoagulation, GERD, and morbid obesity who presented complaining of chest pain, dyspnea with exertion, and nonproductive cough. Chest pain is substernal, radiates to her back, feels like a pressure on her chest, and does not entirely resolve with rest. Of note, patient was admitted 2 times for Legionella pneumonia in the past 4 months and was most recently treated with a 5 day course of Levaquin after visiting urgent care on 07/31/18. She also noticed a bump on her right forearm that has gradually increased in size over the past week and redness over the MCP of her left index finger for the past 1 day. In the ED, patient was found to have an elevated d-dimer and CTA chest was negative for a pulmonary embolism. Multifocal ground glass opacities were identified throughout both lungs as well as consolidative changes involving the lingula suggestive of residual pneumonia versus atelectasis. She was admitted in the hospital and placed her on empirical antibiotic as well as steroids. Pt stated her symptoms improved. She is breathing comfortably on room air. Regarding her chest pain she did go for nuclear stress test which came back is negative for any ischemia/infarction. She has a fixed defect in the inferior wall which seems to be an artifact. Will discharge her home in a stable condition today with oral antibiotic and oral steroids - Time Spent with Patient Total time spent providing and/or coordinating discharge services: - Discharge Medications Prescriptions: Amoxicillin/Clavulanate [Augmentin] 875 mg PO BIDWM #8 tablet Aspirin Enteric Coated [Aspirin EC] 81 mg PO DAILY #30 tablet. Nicotine Patch [Nicoderm] 14 mg TD DAILY #30 patch.td24 PredniSONE [Deltasone] 40 mg PO DAILY #8 tablet Home Medications: Cyclobenzaprine [Flexeril] 10 mg PO TID PRN 09/15/15 [History] Oxycodone HCl/Acetaminophen [Percocet 7.5-325 mg Tablet] 1 each PO Q6H PRN 06/23/16 [History] Ferrous Sulfate [Iron] 325 mg PO TID 04/15/18 [History] Gabapentin [Neurontin] 800 mg PO TID 04/15/18 [History] Omeprazole [PriLOSEC] 20 mg PO DAILY 30 Days #30 cap 04/21/18 [Rx] FLUoxetine HCl [Prozac] 40 mg PO DAILY 07/13/18 [History] Magnesium Oxide [Magnesium] 400 mg PO DAILY 07/13/18 [History] Nortriptyline HCl 150 mg PO HS 07/17/18 [History] Metoprolol [Lopressor] 50 mg PO BID 30 Days #30 tablet 07/18/18 [Rx] Acetaminophen [Tylenol] 325 mg PO Q6HR PRN 08/13/18 [History] Amoxicillin/Clavulanate [Augmentin] 875 mg PO BIDWM #8 tablet 08/15/18 [Rx] Aspirin Enteric Coated [Aspirin EC] 81 mg PO DAILY #30 tablet. 08/15/18 [Rx] Nicotine Patch [Nicoderm] 14 mg TD DAILY #30 patch.td24 08/15/18 [Rx] PredniSONE [Deltasone] 40 mg PO DAILY #8 tablet 08/15/18 [Rx] Allergies/Adverse Reactions: Allergy/AdvReac Type Severity Reaction Status Date / Time No Known Allergies Allergy Verified 08/13/18 11:18 Date of admission: 08/13/18 15:54 Primary care physician: PCP NONE Consults: 08/13/18 03:40 Consult to Nurse Navigator [CONS] Routine Comment: 08/13/18 03:41 Consult to Nurse Navigator [CONS] Routine Comment: - Constitutional Vitals: Temp Pulse Resp BP Pulse Ox 98.2 F 70 16 156/90 97 08/15/18 08:57 08/15/18 08:57 08/15/18 08:57 08/15/18 08:57 08/15/18 08:57 General appearance: Present: A&O X 3, morbidly obese, no acute distress, answers questions appropriately Exam: Gen: Alert, awake, Oriented to time,place and person Chest: Diminished breath sounds B/L, Mild wheezing, No crackles, No rales Heart: S1S2+ RRR No murmurs Abd: Soft, NT, BS +, No organomegaly Ext: No edema, pulses are palpable, No calf tenderness Neuro : Benign findings Skin: No rash. - Patient Status Disposition: Home, Self-Care Condition: Good Overall status at discharge: patient is back to baseline - Discharge Instructions Follow Up With: NONE,PCP [Primary Care Provider] - - Diet and Activity Activity: increase activity as tolerated Diet: low salt diet
== END 2018-08-15 13:50 | disposition home or self-care (01) | DRG 139 ==
LOC: EMEROOARM 17:41 → 3BNU 17:41 → SUATTDRO 08-13 15:54
PROVIDERS: ADMIT Internal Medicine; ATTEND Family Medicine

== ENCOUNTER 2019-05-09 16:21 | Inpatient (IN) ==
[2019-05-09] MEDS ORDERED: Ipratropium/Albuterol Neb 3 ML IH STA (16:59)
[2019-05-09] MEDS ORDERED: Aspirin 81 MG TAB.CHEW PO ONE (17:09)
[2019-05-09] MEDS ORDERED: methylPREDNISolone 125 MG/2 ML VIAL IVP ONE (17:09)
[2019-05-09 17:16] LABS: Basophils % 0.4 %; Eosinophils # 0.1 K/mcL (0.0-0.6); Eosinophils % 1.5 %; Hematocrit 31.8 % (35.3-44.9); Hemoglobin 9.5 g/dL (11.5-15.4); Immature Granulocytes % 1.5 % (0-4); Lymphocytes # 1.5 K/mcL (0.6-4.6); Mean Corpuscular HGB Conc 29.9 g/dL (31.6-35.5); Mean Corpuscular Hemoglobin 29.1 pg (28.0-33.3); Mean Corpuscular Volume 97.5 fL (83.0-100.0); Mean Platelet Volume 9.4 fL (9.4-12.4); Monocytes # 0.4 K/mcL (0.0-1.3); Monocytes % 5.1 %; Neutrophils # 5.3 K/mcL (1.6-8.9); Nucleated Red Blood Cells 0.4 /100 WBC (0); Platelet Count 231 K/mcL (140-400); Red Blood Count 3.26 M/mcL (3.82-4.97); Red Cell Distribution Width 16.2 % (11.5-14.5); Segmented Neutrophils % 71.5 %; White Blood Count 7.4 K/mcL (4.3-11.1)
[2019-05-09 17:31] LABS: INR 1.1; Prothrombin Time 12.1 Seconds (9.4-12.1)
[2019-05-09 17:33] LABS: Activated Partial Thrombo Time 33.9 Seconds (26.0-36.0)
[2019-05-09 17:35] LABS: Alanine Aminotransferase 12 Units/L (7-52); Albumin 3.1 g/dL (3.5-5.7); Albumin/Globulin Ratio 1.2 (1.1-2.2); Alkaline Phosphatase 96 Units/L (34-104); Aspartate Amino Transferase 12 Units/L (13-39); BUN/Creatinine Ratio 10 (6-26); Bilirubin,Total 0.3 mg/dL (0.3-1.0); Blood Urea Nitrogen 8 mg/dL (6-20); Calcium 8.7 mg/dL (8.6-10.3); Carbon Dioxide 30 mEq/L (23-29); Chloride 107 mEq/L (98-107); Globulin 2.6 g/dL (2.4-3.5); Glucose 88 mg/dL (70-105); Osmolality,Calculated 290 (280-300); Potassium 3.4 mEq/L (3.5-5.1); Sodium 141 mEq/L (136-145); Total Protein 5.7 g/dL (6.4-8.9); eGFR For African Americans > 60 (> 60); eGFR For Non-African Americans > 60 (> 60)
[2019-05-09] MEDS ORDERED: levoFLOXacin 750 MG TABLET PO ONE (18:54)
[2019-05-09] MEDS ORDERED: Naloxone 0.4 MG/ML INJ IVP PRN (22:42)
[2019-05-09] MEDS ORDERED: Albuterol 2.5 MG/3 ML NEBULIZER IH PRN (22:44)
[2019-05-10] MEDS: MethylPREDNISolone 40 MG/ML VIAL IVP SCH ×2 (00:12→06:26)
[2019-05-10] MEDS: rOPINIRole 0.25 MG TABLET PO SCH ×2 (00:12→21:17)
[2019-05-10] MEDS: Ipratropium/Albuterol Neb 3 ML IH SCH ×5 (00:21→22:06)
[2019-05-10 05:09] LABS: Hematocrit 35.6 % (35.3-44.9); Hemoglobin 10.9 g/dL (11.5-15.4); Mean Corpuscular HGB Conc 30.6 g/dL (31.6-35.5); Mean Corpuscular Hemoglobin 29.8 pg (28.0-33.3); Mean Corpuscular Volume 97.3 fL (83.0-100.0); Mean Platelet Volume 9.6 fL (9.4-12.4); Platelet Count 219 K/mcL (140-400); Red Blood Count 3.66 M/mcL (3.82-4.97); Red Cell Distribution Width 15.9 % (11.5-14.5); White Blood Count 7.8 K/mcL (4.3-11.1)
[2019-05-10 05:33] LABS: BUN/Creatinine Ratio 12 (6-26); Blood Urea Nitrogen 10 mg/dL (6-20); Carbon Dioxide 27 mEq/L (23-29); Chloride 106 mEq/L (98-107); Glucose 157 mg/dL (70-105); Magnesium 1.8 mg/dL (1.6-2.6); Osmolality,Calculated 298 (280-300); Potassium 3.9 mEq/L (3.5-5.1); Sodium 143 mEq/L (136-145); Troponin I < 0.03 ng/mL (< 0.04); eGFR For African Americans > 60 (> 60); eGFR For Non-African Americans > 60 (> 60)
[2019-05-10] MEDS: *HR* Heparin 5,000 UNIT/ML VIAL SQ SCH ×2 (06:26→17:40)
[2019-05-10] MEDS ORDERED: SALMETEROL IH SCH (09:00)
[2019-05-10] MEDS ORDERED: EDOXABAN TOSYLATE 60 MG PO SCH (09:00)
[2019-05-10] MEDS ORDERED: FLUTICASONE IH SCH (09:00)
[2019-05-10] MEDS ORDERED: MethylPREDNISolone 40 MG/ML VIAL IVP SCH (09:00)
[2019-05-10] MEDS ORDERED: [UNRECOGNIZED DRUG - OTHER] IH SCH (09:00)
[2019-05-10] MEDS: FLUoxetine 20 MG CAPSULE PO SCH (09:51)
[2019-05-10] MEDS: Magnesium Oxide 400 MG TABLET PO SCH (09:51)
[2019-05-10] MEDS: levoFLOXacin 750 MG/150 ML 750 MG/150 ML BAG IVPB SCH (09:51)
[2019-05-10] MEDS: Aspirin Enteric Coated 81 MG Tablet PO SCH (09:51)
[2019-05-10] MEDS: Gabapentin 400 MG CAPSULE PO SCH ×3 (09:51→21:17)
[2019-05-10] MEDS: Acetaminophen 325 MG TABLET PO PRN ×2 (10:04→16:11)
[2019-05-10] MEDS: Budesonide/Formoterol 160/4.5 1 PUFF INH IH SCH ×2 (10:23→22:04)
[2019-05-10 16:29] LABS: Bilirubin,Urine Negative (Negative); Blood,Urine Negative (Negative); Clarity,Urine Clear (Clear); Color,Urine Yellow (Yellow); Glucose,Urine (UA) Normal (Normal); Ketones,Urine Negative (Negative); Leukocyte Esterase,Urine Negative (Negative); Nitrite,Urine Negative (Negative); Protein,Urine Negative (Neg-Trace); Specific Gravity,Urine 1.016 (1.010-1.025); Urobilinogen,Urine Normal (Normal)
[2019-05-11] MEDS: Ipratropium/Albuterol Neb 3 ML IH SCH ×4 (04:33→22:45)
[2019-05-11] MEDS: *HR* Heparin 5,000 UNIT/ML VIAL SQ SCH ×2 (07:16→17:22)
[2019-05-11] MEDS ORDERED: Perflutren Lipid Microsphere 1.3 ML in 0.9 % Sodium Chloride 8.7 ML IVP ONE (07:30)
[2019-05-11] MEDS: Regadenoson 0.4 MG/5 ML SYRINGE IVP ONE (09:24)
[2019-05-11] MEDS: Budesonide/Formoterol 160/4.5 1 PUFF INH IH SCH ×2 (10:19→20:36)
[2019-05-11] MEDS: Gabapentin 400 MG CAPSULE PO SCH ×3 (10:32→22:41)
[2019-05-11] MEDS: levoFLOXacin 750 MG/150 ML 750 MG/150 ML BAG IVPB SCH (10:32)
[2019-05-11] MEDS: Magnesium Oxide 400 MG TABLET PO SCH (10:33)
[2019-05-11] MEDS: Aspirin Enteric Coated 81 MG Tablet PO SCH (10:33)
[2019-05-11] MEDS: FLUoxetine 20 MG CAPSULE PO SCH (10:33)
[2019-05-11] MEDS ORDERED: Menthol 9.1 MG LOZENGE PO PRN (21:47)
[2019-05-11] MEDS: rOPINIRole 0.25 MG TABLET PO SCH (22:40)
[2019-05-11] MEDS: *HR* OxyCODONE/APAP 7.5/325 TABLET PO PRN (22:41)
[2019-05-12] MEDS: Ipratropium/Albuterol Neb 3 ML IH SCH (03:27)
[2019-05-12] MEDS: *HR* Heparin 5,000 UNIT/ML VIAL SQ SCH ×2 (05:05→16:04)
[2019-05-12] MEDS ORDERED: Regadenoson 0.4 MG/5 ML SYRINGE IVP ONE (06:08)
[2019-05-12] MEDS: Regadenoson 0.4 MG/5 ML SYRINGE IVP ONE (07:52)
[2019-05-12] MEDS: Magnesium Oxide 400 MG TABLET PO SCH (09:21)
[2019-05-12] MEDS ORDERED: Nitroglycerin 0.4 MG TAB.SUBL SL STA (09:21)
[2019-05-12] MEDS: Aspirin Enteric Coated 81 MG Tablet PO SCH (09:21)
[2019-05-12] MEDS: FLUoxetine 20 MG CAPSULE PO SCH (09:22)
[2019-05-12] MEDS: Gabapentin 400 MG CAPSULE PO SCH ×3 (09:22→21:15)
[2019-05-12] MEDS: levoFLOXacin 750 MG/150 ML 750 MG/150 ML BAG IVPB SCH (09:38)
[2019-05-12] MEDS: Budesonide/Formoterol 160/4.5 1 PUFF INH IH SCH ×2 (09:56→20:41)
[2019-05-12] MEDS: Acetaminophen 325 MG TABLET PO PRN (14:07)
[2019-05-12] MEDS: rOPINIRole 0.25 MG TABLET PO SCH (21:14)
[2019-05-13 04:52] LABS: Hematocrit 32.6 % (35.3-44.9); Hemoglobin 9.7 g/dL (11.5-15.4); Mean Corpuscular HGB Conc 29.8 g/dL (31.6-35.5); Mean Corpuscular Hemoglobin 29.1 pg (28.0-33.3); Mean Corpuscular Volume 97.9 fL (83.0-100.0); Mean Platelet Volume 9.1 fL (9.4-12.4); Platelet Count 206 K/mcL (140-400); Red Blood Count 3.33 M/mcL (3.82-4.97); Red Cell Distribution Width 16.5 % (11.5-14.5); White Blood Count 7.4 K/mcL (4.3-11.1)
[2019-05-13 05:16] LABS: BUN/Creatinine Ratio 25 (6-26); Blood Urea Nitrogen 24 mg/dL (6-20); Calcium 8.5 mg/dL (8.6-10.3); Carbon Dioxide 28 mEq/L (23-29); Chloride 108 mEq/L (98-107); Glucose 90 mg/dL (70-105); Osmolality,Calculated 298 (280-300); Potassium 4.3 mEq/L (3.5-5.1); Sodium 142 mEq/L (136-145); eGFR For African Americans > 60 (> 60); eGFR For Non-African Americans > 60 (> 60)
[2019-05-13] MEDS: *HR* Heparin 5,000 UNIT/ML VIAL SQ SCH ×2 (06:00→16:24)
[2019-05-13] MEDS: FLUoxetine 20 MG CAPSULE PO SCH (09:29)
[2019-05-13] MEDS: levoFLOXacin 750 MG/150 ML 750 MG/150 ML BAG IVPB SCH (09:30)
[2019-05-13] MEDS: Aspirin Enteric Coated 81 MG Tablet PO SCH (09:30)
[2019-05-13] MEDS: Gabapentin 400 MG CAPSULE PO SCH ×3 (09:30→21:36)
[2019-05-13] MEDS: Magnesium Oxide 400 MG TABLET PO SCH (09:30)
[2019-05-13] MEDS: Budesonide/Formoterol 160/4.5 1 PUFF INH IH SCH ×2 (10:07→23:19)
[2019-05-13] MEDS ORDERED: SODIUM CHLORIDE/NAHCO3/KCL/PEG 4,000 ML SOLN.RECON PO ONE (17:00)
[2019-05-13] MEDS: rOPINIRole 0.25 MG TABLET PO SCH (21:36)
[2019-05-13] MEDS: *HR* OxyCODONE/APAP 7.5/325 TABLET PO PRN (21:41)
[2019-05-14 06:08] LABS: Hematocrit 37.2 % (35.3-44.9); Hemoglobin 11.2 g/dL (11.5-15.4); Mean Corpuscular HGB Conc 30.1 g/dL (31.6-35.5); Mean Corpuscular Hemoglobin 29.1 pg (28.0-33.3); Mean Corpuscular Volume 96.6 fL (83.0-100.0); Mean Platelet Volume 9.1 fL (9.4-12.4); Platelet Count 236 K/mcL (140-400); Red Blood Count 3.85 M/mcL (3.82-4.97); Red Cell Distribution Width 16.2 % (11.5-14.5); White Blood Count 9.4 K/mcL (4.3-11.1)
[2019-05-14] MEDS: *HR* Heparin 5,000 UNIT/ML VIAL SQ SCH ×2 (06:17→17:44)
[2019-05-14 06:55] LABS: % Iron Saturation 11 % (15-50); BUN/Creatinine Ratio 21 (6-26); Blood Urea Nitrogen 20 mg/dL (6-20); Calcium 8.9 mg/dL (8.6-10.3); Carbon Dioxide 29 mEq/L (23-29); Chloride 102 mEq/L (98-107); Ferritin 42 ng/mL (10-120); Folate 4.1 ng/mL (3.0-16.0); Glucose 103 mg/dL (70-105); Iron 45 mcg/dL (50-170); Osmolality,Calculated 291 (280-300); Potassium 3.9 mEq/L (3.5-5.1); Sodium 139 mEq/L (136-145); Transferrin 296 mg/dL (203-362); eGFR For African Americans > 60 (> 60); eGFR For Non-African Americans > 60 (> 60)
[2019-05-14] MEDS: Budesonide/Formoterol 160/4.5 1 PUFF INH IH SCH ×2 (09:40→22:08)
[2019-05-14] MEDS: levoFLOXacin 750 MG/150 ML 750 MG/150 ML BAG IVPB SCH (10:04)
[2019-05-14] MEDS: Aspirin Enteric Coated 81 MG Tablet PO SCH (10:08)
[2019-05-14] MEDS: Magnesium Oxide 400 MG TABLET PO SCH (10:08)
[2019-05-14] MEDS: Gabapentin 400 MG CAPSULE PO SCH ×3 (10:09→20:48)
[2019-05-14] MEDS: FLUoxetine 20 MG CAPSULE PO SCH (10:09)
[2019-05-14] MEDS ORDERED: Lidocaine -MPF 2% 2 ML VIAL ONE (12:09)
[2019-05-14] MEDS ORDERED: Propofol 500 MG/50 ML INFUS..BTL ONE (12:45)
[2019-05-14] MEDS: rOPINIRole 0.25 MG TABLET PO SCH (20:49)
[2019-05-15] MEDS: *HR* OxyCODONE/APAP 7.5/325 TABLET PO PRN (00:38)
[2019-05-15] MEDS: *HR* Heparin 5,000 UNIT/ML VIAL SQ SCH ×2 (05:41→17:20)
[2019-05-15 08:16] LABS: Hematocrit 36.6 % (35.3-44.9); Mean Corpuscular HGB Conc 30.1 g/dL (31.6-35.5); Mean Corpuscular Hemoglobin 29.6 pg (28.0-33.3); Mean Corpuscular Volume 98.4 fL (83.0-100.0); Mean Platelet Volume 9.5 fL (9.4-12.4); Platelet Count 220 K/mcL (140-400); Red Blood Count 3.72 M/mcL (3.82-4.97); Red Cell Distribution Width 16.4 % (11.5-14.5); White Blood Count 8.2 K/mcL (4.3-11.1)
[2019-05-15] MEDS: Gabapentin 400 MG CAPSULE PO SCH ×3 (09:45→20:15)
[2019-05-15] MEDS: Acetaminophen 325 MG TABLET PO PRN (09:45)
[2019-05-15] MEDS: Aspirin Enteric Coated 81 MG Tablet PO SCH (09:46)
[2019-05-15] MEDS: FLUoxetine 20 MG CAPSULE PO SCH (09:46)
[2019-05-15] MEDS: levoFLOXacin 750 MG TABLET PO SCH (09:53)
[2019-05-15 10:01] LABS: BUN/Creatinine Ratio 15 (6-26); Blood Urea Nitrogen 16 mg/dL (6-20); Calcium 8.8 mg/dL (8.6-10.3); Carbon Dioxide 32 mEq/L (23-29); Chloride 103 mEq/L (98-107); Glucose 99 mg/dL (70-105); Osmolality,Calculated 295 (280-300); Potassium 4.5 mEq/L (3.5-5.1); Sodium 142 mEq/L (136-145); eGFR For African Americans > 60 (> 60); eGFR For Non-African Americans 54 (> 60)
[2019-05-15] MEDS: Budesonide/Formoterol 160/4.5 1 PUFF INH IH SCH ×2 (10:36→22:57)
[2019-05-15] MEDS ORDERED: 0.9 % Sodium Chloride 1,000 ML ONE (12:59)
[2019-05-15] MEDS ORDERED: *HR* Heparin 10,000 UNIT/10 ML VIAL ONE (13:00)
[2019-05-15] MEDS ORDERED: Nitroglycerin 1,000 MCG/10 ML VIAL IV ONE (13:00)
[2019-05-15] MEDS ORDERED: ISOVUE-370 200 ML INFUS..BTL ONE (13:00)
[2019-05-15] MEDS ORDERED: Heparin 1,000 UNITS/500 mL 500 ML ONE (13:00)
[2019-05-15] MEDS ORDERED: *HR* Midazolam HCl 2 MG/2 ML VIAL ONE ×2 (13:13→13:38)
[2019-05-15] MEDS ORDERED: Verapamil 5 MG/2 ML VIAL ONE (13:32)
[2019-05-15] MEDS ORDERED: *HR* Ticagrelor 90 MG TABLET ONE (13:56)
[2019-05-15] MEDS ORDERED: *HR* FentaNYL (PF) 100 MCG/2 ML VIAL ONE (14:02)
[2019-05-15] MEDS ORDERED: *HR* Atropine Sulfate 1 MG/10 ML SYRINGE ONE (14:04)
[2019-05-15] MEDS: Magnesium Oxide 400 MG TABLET PO SCH (16:00)
[2019-05-15] MEDS ORDERED: Nitroglycerin 1 INCH/GM PACKET TP ONE (18:17)
[2019-05-15] MEDS ORDERED: Nitroglycerin 1 INCH/GM PACKET TP SCH (19:00)
[2019-05-15] MEDS: Nitroglycerin 1 INCH/GM PACKET TP SCH (20:05)
[2019-05-15] MEDS: rOPINIRole 0.25 MG TABLET PO SCH (20:15)
[2019-05-15] MEDS: *HR* Ticagrelor 90 MG TABLET PO SCH (20:16)
[2019-05-16 03:38] LABS: Basophils # 0.1 K/mcL (0.0-0.2); Basophils % 0.5 %; Eosinophils # 0.1 K/mcL (0.0-0.6); Eosinophils % 1.2 %; Hematocrit 33.1 % (35.3-44.9); Hematocrit 33.5 % (35.3-44.9); Hemoglobin 9.9 g/dL (11.5-15.4); Immature Granulocytes % 4.2 % (0-4); Lymphocytes # 1.5 K/mcL (0.6-4.6); Lymphocytes % 16.1 %; Mean Corpuscular HGB Conc 29.9 g/dL (31.6-35.5); Mean Corpuscular Hemoglobin 29.1 pg (28.0-33.3); Mean Corpuscular Hemoglobin 29.6 pg (28.0-33.3); Mean Corpuscular Volume 97.4 fL (83.0-100.0); Mean Corpuscular Volume 98.8 fL (83.0-100.0); Mean Platelet Volume 9.5 fL (9.4-12.4); Mean Platelet Volume 9.6 fL (9.4-12.4); Monocytes # 0.6 K/mcL (0.0-1.3); Monocytes % 6.5 %; Neutrophils # 6.6 K/mcL (1.6-8.9); Nucleated Red Blood Cells 0.2 /100 WBC (0); Platelet Count 196 K/mcL (140-400); Platelet Count 202 K/mcL (140-400); Red Blood Count 3.35 M/mcL (3.82-4.97); Red Blood Count 3.44 M/mcL (3.82-4.97); Red Cell Distribution Width 16.5 % (11.5-14.5); Red Cell Distribution Width 16.6 % (11.5-14.5); Segmented Neutrophils % 71.5 %; White Blood Count 8.9 K/mcL (4.3-11.1); White Blood Count 9.2 K/mcL (4.3-11.1)
[2019-05-16 03:53] LABS: BUN/Creatinine Ratio 15 (6-26); Blood Urea Nitrogen 17 mg/dL (6-20); Calcium 8.8 mg/dL (8.6-10.3); Carbon Dioxide 31 mEq/L (23-29); Chloride 102 mEq/L (98-107); Glucose 97 mg/dL (70-105); Osmolality,Calculated 293 (280-300); Potassium 4.3 mEq/L (3.5-5.1); Sodium 141 mEq/L (136-145); eGFR For African Americans > 60 (> 60); eGFR For Non-African Americans 50 (> 60)
[2019-05-16] MEDS: Nitroglycerin 1 INCH/GM PACKET TP SCH (06:34)
[2019-05-16] MEDS: *HR* Heparin 5,000 UNIT/ML VIAL SQ SCH ×2 (06:34→17:52)
[2019-05-16] MEDS: levoFLOXacin 750 MG/150 ML 750 MG/150 ML BAG IVPB SCH (08:33)
[2019-05-16] MEDS ORDERED: Aspirin 81 MG TAB.CHEW PO SCH (09:00)
[2019-05-16] MEDS ORDERED: Nitroglycerin 0.4 MG TAB.SUBL SL PRN (09:12)
[2019-05-16] MEDS: Gabapentin 400 MG CAPSULE PO SCH ×3 (09:27→22:19)
[2019-05-16] MEDS: FLUoxetine 20 MG CAPSULE PO SCH (09:27)
[2019-05-16] MEDS: levoFLOXacin 750 MG TABLET PO SCH (09:27)
[2019-05-16] MEDS: Magnesium Oxide 400 MG TABLET PO SCH (09:27)
[2019-05-16] MEDS: Aspirin Enteric Coated 81 MG Tablet PO SCH (09:27)
[2019-05-16] MEDS: *HR* Ticagrelor 90 MG TABLET PO SCH (09:27)
[2019-05-16] MEDS: Budesonide/Formoterol 160/4.5 1 PUFF INH IH SCH ×2 (10:03→21:22)
[2019-05-16] MEDS: Isosorbide MONOnitrate (24 HR) 30 MG TAB.ER.24H PO SCH (10:09)
[2019-05-16] MEDS: rOPINIRole 0.25 MG TABLET PO SCH (22:20)
[2019-05-16] MEDS: *HR* OxyCODONE/APAP 7.5/325 TABLET PO PRN (22:20)
[2019-05-17 02:00] LABS: Hematocrit 34.3 % (35.3-44.9); Hemoglobin 10.3 g/dL (11.5-15.4); Mean Corpuscular Hemoglobin 29.7 pg (28.0-33.3); Mean Corpuscular Volume 98.8 fL (83.0-100.0); Mean Platelet Volume 9.5 fL (9.4-12.4); Platelet Count 208 K/mcL (140-400); Red Blood Count 3.47 M/mcL (3.82-4.97); White Blood Count 11.3 K/mcL (4.3-11.1)
[2019-05-17 02:21] LABS: Potassium 4.7 mEq/L (3.5-5.1)
[2019-05-17] MEDS: Acetaminophen 325 MG TABLET PO PRN (05:56)
[2019-05-17] MEDS: *HR* Heparin 5,000 UNIT/ML VIAL SQ SCH ×2 (05:57→17:54)
[2019-05-17] MEDS: Gabapentin 400 MG CAPSULE PO SCH ×3 (10:13→20:13)
[2019-05-17] MEDS: Isosorbide MONOnitrate (24 HR) 30 MG TAB.ER.24H PO SCH (10:13)
[2019-05-17] MEDS: Magnesium Oxide 400 MG TABLET PO SCH (10:13)
[2019-05-17] MEDS: FLUoxetine 20 MG CAPSULE PO SCH (10:13)
[2019-05-17] MEDS: Aspirin Enteric Coated 81 MG Tablet PO SCH (10:13)
[2019-05-17] MEDS ORDERED: 0.9 % Sodium Chloride 500 ML IVC ONE (10:27)
[2019-05-17] MEDS: Budesonide/Formoterol 160/4.5 1 PUFF INH IH SCH ×2 (10:58→20:01)
[2019-05-17 14:57] LABS: Calcium 8.5 mg/dL (8.6-10.3); Potassium 4.2 mEq/L (3.5-5.1)
[2019-05-17] MEDS: rOPINIRole 0.25 MG TABLET PO SCH (20:11)
[2019-05-17] MEDS: *HR* OxyCODONE/APAP 7.5/325 TABLET PO PRN (22:54)
[2019-05-18] MEDS: Acetaminophen 325 MG TABLET PO PRN (02:21)
[2019-05-18] MEDS: *HR* Heparin 5,000 UNIT/ML VIAL SQ SCH ×2 (05:20→17:17)
[2019-05-18 07:50] LABS: Hematocrit 32.4 % (35.3-44.9); Hemoglobin 9.5 g/dL (11.5-15.4); Mean Corpuscular HGB Conc 29.3 g/dL (31.6-35.5); Mean Corpuscular Volume 98.8 fL (83.0-100.0); Mean Platelet Volume 9.7 fL (9.4-12.4); Platelet Count 184 K/mcL (140-400); Red Blood Count 3.28 M/mcL (3.82-4.97); Red Cell Distribution Width 16.9 % (11.5-14.5); White Blood Count 9.8 K/mcL (4.3-11.1)
[2019-05-18 08:09] LABS: BUN/Creatinine Ratio 23 (6-26); Blood Urea Nitrogen 25 mg/dL (6-20); Calcium 8.6 mg/dL (8.6-10.3); Carbon Dioxide 29 mEq/L (23-29); Chloride 104 mEq/L (98-107); Glucose 90 mg/dL (70-105); Osmolality,Calculated 290 (280-300); Potassium 4.6 mEq/L (3.5-5.1); Sodium 138 mEq/L (136-145); eGFR For African Americans > 60 (> 60); eGFR For Non-African Americans 54 (> 60)
[2019-05-18] MEDS: Aspirin Enteric Coated 81 MG Tablet PO SCH (09:15)
[2019-05-18] MEDS: Magnesium Oxide 400 MG TABLET PO SCH (09:15)
[2019-05-18] MEDS: Isosorbide MONOnitrate (24 HR) 30 MG TAB.ER.24H PO SCH (09:15)
[2019-05-18] MEDS: Gabapentin 400 MG CAPSULE PO SCH ×3 (09:15→21:57)
[2019-05-18] MEDS: FLUoxetine 20 MG CAPSULE PO SCH (09:15)
[2019-05-18] MEDS ORDERED: 0.9 % Sodium Chloride 500 ML IVC ONE (09:21)
[2019-05-18] MEDS ORDERED: Isovue-370 500 ML BOTTLE IVP ONE (09:35)
[2019-05-18] MEDS: Budesonide/Formoterol 160/4.5 1 PUFF INH IH SCH ×2 (10:36→19:37)
[2019-05-18] MEDS: Ipratropium/Albuterol Neb 3 ML IH SCH ×4 (10:38→23:45)
[2019-05-18] MEDS: predniSONE 20 MG TABLET PO SCH (13:08)
[2019-05-18] MEDS ORDERED: Piperacillin/Tazobactam 3.375 GM in 0.9 % Sodium Chloride Mini Bag 100 ML IVPB SCH (16:00)
[2019-05-18] MEDS: Ondansetron ODT 4 MG TAB.RAPDIS SL PRN (18:11)
[2019-05-18] MEDS: rOPINIRole 0.25 MG TABLET PO SCH (21:57)
[2019-05-19] MEDS: Ipratropium/Albuterol Neb 3 ML IH SCH ×3 (04:05→11:03)
[2019-05-19 04:40] LABS: Hematocrit 32.1 % (35.3-44.9); Hemoglobin 9.7 g/dL (11.5-15.4); Mean Corpuscular HGB Conc 30.2 g/dL (31.6-35.5); Mean Corpuscular Volume 99.4 fL (83.0-100.0); Mean Platelet Volume 9.6 fL (9.4-12.4); Platelet Count 190 K/mcL (140-400); Red Blood Count 3.23 M/mcL (3.82-4.97); Red Cell Distribution Width 16.7 % (11.5-14.5); White Blood Count 11.6 K/mcL (4.3-11.1)
[2019-05-19 04:55] LABS: BUN/Creatinine Ratio 23 (6-26); Blood Urea Nitrogen 21 mg/dL (6-20); Carbon Dioxide 29 mEq/L (23-29); Chloride 106 mEq/L (98-107); Glucose 127 mg/dL (70-105); Osmolality,Calculated 295 (280-300); Potassium 4.8 mEq/L (3.5-5.1); Sodium 140 mEq/L (136-145); eGFR For African Americans > 60 (> 60); eGFR For Non-African Americans > 60 (> 60)
[2019-05-19] MEDS: *HR* Heparin 5,000 UNIT/ML VIAL SQ SCH (05:58)
[2019-05-19] MEDS: Ondansetron ODT 4 MG TAB.RAPDIS SL PRN (05:59)
[2019-05-19] MEDS: Budesonide/Formoterol 160/4.5 1 PUFF INH IH SCH (07:40)
[2019-05-19] MEDS: Isosorbide MONOnitrate (24 HR) 30 MG TAB.ER.24H PO SCH (08:10)
[2019-05-19] MEDS: Gabapentin 400 MG CAPSULE PO SCH (08:10)
[2019-05-19] MEDS: predniSONE 20 MG TABLET PO SCH (08:10)
[2019-05-19] MEDS: Aspirin Enteric Coated 81 MG Tablet PO SCH (08:10)
[2019-05-19] MEDS: Magnesium Oxide 400 MG TABLET PO SCH (08:10)
[2019-05-19] MEDS: FLUoxetine 20 MG CAPSULE PO SCH (08:10)
[2019-05-19 11:36] VITALS: BP 118/77
== END 2019-05-19 15:16 | disposition home or self-care (01) | DRG 175 ==
LOC: EMEROOARM 16:21 → 2ANU 16:21 → SUATTDRO 20:13 → 2ANU 20:14
PROVIDERS: ADMIT Internal Medicine; ATTEND Family Medicine

== ENCOUNTER 2019-08-11 11:00 | Inpatient (IN) ==
[2019-08-11] MEDS ORDERED: 0.9 % Sodium Chloride 1,000 ML IVC ONE (11:14)
[2019-08-11] MEDS ORDERED: Isovue-370 500 ML BOTTLE IVP ONE (11:15)
[2019-08-11] MEDS ORDERED: *HR* FentaNYL (PF) 100 MCG/2 ML VIAL IVP ONE (11:16)
[2019-08-11 11:58] LABS: Basophils # 0.1 K/mcL (0.0-0.2); Basophils % 0.5 %; Eosinophils # 0.1 K/mcL (0.0-0.6); Eosinophils % 0.6 %; Hematocrit 32.3 % (35.3-44.9); Hemoglobin 9.8 g/dL (11.5-15.4); Immature Granulocytes % 1.7 % (0-4); Lymphocytes # 1.3 K/mcL (0.6-4.6); Lymphocytes % 12.9 %; Mean Corpuscular HGB Conc 30.3 g/dL (31.6-35.5); Mean Corpuscular Hemoglobin 27.9 pg (28.0-33.3); Mean Platelet Volume 8.5 fL (9.4-12.4); Monocytes # 0.5 K/mcL (0.0-1.3); Monocytes % 4.7 %; Neutrophils # 8.1 K/mcL (1.6-8.9); Platelet Count 294 K/mcL (140-400); Red Blood Count 3.51 M/mcL (3.82-4.97); Red Cell Distribution Width 17.3 % (11.5-14.5); Segmented Neutrophils % 79.6 %; White Blood Count 10.2 K/mcL (4.3-11.1)
[2019-08-11 12:20] LABS: BUN/Creatinine Ratio 15 (6-26); Blood Urea Nitrogen 16 mg/dL (6-20); Calcium 9.2 mg/dL (8.6-10.3); Carbon Dioxide 26 mEq/L (23-29); Chloride 103 mEq/L (98-107); Glucose 102 mg/dL (70-105); Osmolality,Calculated 293 (280-300); Potassium 4.2 mEq/L (3.5-5.1); Sodium 141 mEq/L (136-145); eGFR For African Americans > 60 (> 60); eGFR For Non-African Americans 54 (> 60)
[2019-08-11] MEDS ORDERED: Piperacillin/Tazobactam 3.375 GM in Water for inj. (sterile) 20 ML IVP ONE (14:33)
[2019-08-11] MEDS ORDERED: Ibuprofen 400 MG TABLET PO PRN (14:49)
[2019-08-11] MEDS ORDERED: Naloxone 0.4 MG/ML INJ IVP PRN (14:49)
[2019-08-11] MEDS ORDERED: Ondansetron ODT 4 MG TAB.RAPDIS SL PRN (14:49)
[2019-08-11] MEDS ORDERED: *HR* Promethazine 25 MG/ML VIAL IVP PRN (14:49)
[2019-08-11] MEDS ORDERED: Acetaminophen 325 MG TABLET PO PRN (14:49)
[2019-08-11] MEDS: *HR* OxyCODONE Immed Rel 5 MG TABLET PO PRN (17:23)
[2019-08-11] MEDS: *HR* Heparin 5,000 UNIT/ML VIAL SQ SCH (17:24)
[2019-08-11] MEDS: Gabapentin 300 MG CAPSULE PO SCH (20:12)
[2019-08-11] MEDS: Piperacillin/Tazobactam 3.375 GM in 0.9 % Sodium Chloride Mini Bag 100 ML IVPB SCH (23:40)
[2019-08-12] MEDS: Piperacillin/Tazobactam 3.375 GM in 0.9 % Sodium Chloride Mini Bag 100 ML IVPB SCH ×3 (05:56→23:07)
[2019-08-12] MEDS: *HR* Heparin 5,000 UNIT/ML VIAL SQ SCH ×2 (05:56→17:04)
[2019-08-12 06:37] LABS: Hematocrit 29.5 % (35.3-44.9); Hemoglobin 8.9 g/dL (11.5-15.4); Mean Corpuscular HGB Conc 30.2 g/dL (31.6-35.5); Mean Corpuscular Hemoglobin 28.3 pg (28.0-33.3); Mean Corpuscular Volume 93.7 fL (83.0-100.0); Mean Platelet Volume 8.2 fL (9.4-12.4); Platelet Count 256 K/mcL (140-400); Red Blood Count 3.15 M/mcL (3.82-4.97); Red Cell Distribution Width 17.3 % (11.5-14.5); White Blood Count 7.8 K/mcL (4.3-11.1)
[2019-08-12 06:56] LABS: BUN/Creatinine Ratio 16 (6-26); Blood Urea Nitrogen 16 mg/dL (6-20); Calcium 8.6 mg/dL (8.6-10.3); Carbon Dioxide 27 mEq/L (23-29); Chloride 106 mEq/L (98-107); Glucose 83 mg/dL (70-105); Osmolality,Calculated 294 (280-300); Potassium 4.2 mEq/L (3.5-5.1); Sodium 142 mEq/L (136-145); eGFR For African Americans > 60 (> 60); eGFR For Non-African Americans > 60 (> 60)
[2019-08-12] MEDS: Aspirin Enteric Coated 81 MG Tablet PO SCH (10:17)
[2019-08-12] MEDS: FLUoxetine 20 MG CAPSULE PO SCH (10:17)
[2019-08-12] MEDS: Isosorbide MONOnitrate (24 HR) 30 MG TAB.ER.24H PO SCH (10:18)
[2019-08-12] MEDS: Gabapentin 300 MG CAPSULE PO SCH ×3 (10:18→20:52)
[2019-08-12] MEDS: *HR* OxyCODONE Immed Rel 5 MG TABLET PO PRN ×2 (14:29→20:51)
[2019-08-12] MEDS ORDERED: Acetaminophen IV 1,000 MG/100 ML INFUS..BTL IVPB ONE (17:07)
[2019-08-12] MEDS: Budesonide/Formoterol 80/4.5 1 PUFF INH IH SCH (20:23)
[2019-08-13] MEDS: *HR* OxyCODONE Immed Rel 5 MG TABLET PO PRN ×2 (04:00→16:27)
[2019-08-13 04:55] LABS: Hematocrit 26.5 % (35.3-44.9); Hemoglobin 7.7 g/dL (11.5-15.4); Mean Corpuscular HGB Conc 29.1 g/dL (31.6-35.5); Mean Corpuscular Hemoglobin 27.9 pg (28.0-33.3); Mean Platelet Volume 8.5 fL (9.4-12.4); Platelet Count 223 K/mcL (140-400); Red Blood Count 2.76 M/mcL (3.82-4.97); Red Cell Distribution Width 17.2 % (11.5-14.5)
[2019-08-13 05:16] LABS: BUN/Creatinine Ratio 17 (6-26); Blood Urea Nitrogen 16 mg/dL (6-20); Calcium 8.1 mg/dL (8.6-10.3); Carbon Dioxide 25 mEq/L (23-29); Chloride 108 mEq/L (98-107); Glucose 91 mg/dL (70-105); Osmolality,Calculated 291 (280-300); Potassium 3.8 mEq/L (3.5-5.1); Sodium 140 mEq/L (136-145); eGFR For African Americans > 60 (> 60); eGFR For Non-African Americans > 60 (> 60)
[2019-08-13] MEDS: Piperacillin/Tazobactam 3.375 GM in 0.9 % Sodium Chloride Mini Bag 100 ML IVPB SCH ×3 (06:32→21:24)
[2019-08-13] MEDS: *HR* Heparin 5,000 UNIT/ML VIAL SQ SCH ×2 (06:34→16:18)
[2019-08-13] MEDS: Gabapentin 300 MG CAPSULE PO SCH ×3 (07:46→21:22)
[2019-08-13] MEDS: FLUoxetine 20 MG CAPSULE PO SCH (07:46)
[2019-08-13] MEDS: Aspirin Enteric Coated 81 MG Tablet PO SCH (07:46)
[2019-08-13] MEDS: Isosorbide MONOnitrate (24 HR) 30 MG TAB.ER.24H PO SCH (07:48)
[2019-08-13] MEDS: Budesonide/Formoterol 80/4.5 1 PUFF INH IH SCH ×2 (08:02→19:51)
[2019-08-13] MEDS ORDERED: SALMETEROL IH SCH (09:00)
[2019-08-13] MEDS ORDERED: FLUTICASONE IH SCH (09:00)
[2019-08-13] MEDS ORDERED: [UNRECOGNIZED DRUG - OTHER] IH SCH (09:00)
[2019-08-13] MEDS ORDERED: *HR* Propofol 200 MG/20 ML VIAL IVP ONE (13:47)
[2019-08-13] MEDS ORDERED: *HR* FentaNYL (PF) 100 MCG/2 ML VIAL ONE (13:47)
[2019-08-13] MEDS ORDERED: Ondansetron 4 MG/2 ML VIAL ONE (13:47)
[2019-08-13] MEDS ORDERED: Dexamethasone 4 MG/ML VIAL ONE (13:47)
[2019-08-13] MEDS ORDERED: Lidocaine -MPF 2% 2 ML VIAL ONE (13:47)
[2019-08-13] MEDS ORDERED: *HR* Rocuronium Bromide 50 MG/5 ML VIAL ONE (14:03)
[2019-08-13] MEDS ORDERED: *HR* Succinylcholine 200 MG/10 ML VIAL IVP ONE (14:03)
[2019-08-13] MEDS ORDERED: EPHEDrine 50 MG/ML VIAL ONE (14:26)
[2019-08-13] MEDS ORDERED: *HR* Promethazine 25 MG/ML VIAL IVP PRN ×2 (14:56→15:16)
[2019-08-13] MEDS ORDERED: *HR* OxyCODONE Immed Rel 5 MG TABLET PO PRN (14:56)
[2019-08-13] MEDS ORDERED: *HR* HYDROmorphone (PF) 1 MG/ML SYRINGE IVP PRN (14:56)
[2019-08-13] MEDS ORDERED: Ringers Solution, Lactated 1,000 ML IVC SCH (15:00)
[2019-08-13] MEDS ORDERED: Ondansetron ODT 4 MG TAB.RAPDIS SL PRN (15:16)
[2019-08-13] MEDS ORDERED: Naloxone 0.4 MG/ML INJ IVP PRN (15:16)
[2019-08-13] MEDS: Acetaminophen 325 MG TABLET PO PRN (18:43)
[2019-08-13] MEDS ORDERED: Gabapentin 300 MG CAPSULE PO SCH (21:00)
[2019-08-14] MEDS: Piperacillin/Tazobactam 3.375 GM in 0.9 % Sodium Chloride Mini Bag 100 ML IVPB SCH ×3 (00:07→16:21)
[2019-08-14] MEDS: *HR* OxyCODONE Immed Rel 5 MG TABLET PO PRN ×3 (04:24→16:20)
[2019-08-14] MEDS: *HR* Heparin 5,000 UNIT/ML VIAL SQ SCH ×2 (06:46→16:32)
[2019-08-14] MEDS: Budesonide/Formoterol 80/4.5 1 PUFF INH IH SCH ×2 (07:56→19:46)
[2019-08-14] MEDS: FLUoxetine 20 MG CAPSULE PO SCH (08:31)
[2019-08-14] MEDS: Isosorbide MONOnitrate (24 HR) 30 MG TAB.ER.24H PO SCH (08:32)
[2019-08-14] MEDS: Gabapentin 300 MG CAPSULE PO SCH ×2 (08:32→21:17)
[2019-08-14] MEDS: Aspirin Enteric Coated 81 MG Tablet PO SCH (08:42)
[2019-08-14 11:20] LABS: Hematocrit 27.9 % (35.3-44.9); Hemoglobin 8.1 g/dL (11.5-15.4); Immature Platelets 1.1 % (1.1-6.1); Mean Corpuscular Hemoglobin 27.9 pg (28.0-33.3); Mean Corpuscular Volume 96.2 fL (83.0-100.0); Mean Platelet Volume 8.7 fL (9.4-12.4); Red Blood Count 2.9 M/mcL (3.82-4.97); Red Cell Distribution Width 16.9 % (11.5-14.5)
[2019-08-14 11:21] LABS: White Blood Count 12.6 K/mcL (4.3-11.1)
[2019-08-14 11:37] LABS: BUN/Creatinine Ratio 16 (6-26); Blood Urea Nitrogen 14 mg/dL (6-20); Calcium 8.7 mg/dL (8.6-10.3); Carbon Dioxide 26 mEq/L (23-29); Chloride 106 mEq/L (98-107); Glucose 189 mg/dL (70-105); Osmolality,Calculated 300 (280-300); Sodium 142 mEq/L (136-145); eGFR For African Americans > 60 (> 60); eGFR For Non-African Americans > 60 (> 60)
[2019-08-15] MEDS: *HR* OxyCODONE Immed Rel 5 MG TABLET PO PRN ×2 (00:31→09:31)
[2019-08-15] MEDS: Piperacillin/Tazobactam 3.375 GM in 0.9 % Sodium Chloride Mini Bag 100 ML IVPB SCH (00:31)
[2019-08-15] MEDS: *HR* Heparin 5,000 UNIT/ML VIAL SQ SCH ×2 (06:03→17:32)
[2019-08-15 06:07] LABS: Hematocrit 26.9 % (35.3-44.9); Mean Corpuscular HGB Conc 29.7 g/dL (31.6-35.5); Mean Corpuscular Hemoglobin 27.6 pg (28.0-33.3); Mean Corpuscular Volume 92.8 fL (83.0-100.0); Mean Platelet Volume 8.8 fL (9.4-12.4); Platelet Count 269 K/mcL (140-400); White Blood Count 10.7 K/mcL (4.3-11.1)
[2019-08-15] MEDS: Ibuprofen 400 MG TABLET PO PRN (06:09)
[2019-08-15 06:17] LABS: BUN/Creatinine Ratio 19 (6-26); Blood Urea Nitrogen 18 mg/dL (6-20); Calcium 8.4 mg/dL (8.6-10.3); Carbon Dioxide 25 mEq/L (23-29); Chloride 106 mEq/L (98-107); Glucose 87 mg/dL (70-105); Osmolality,Calculated 295 (280-300); Potassium 4.5 mEq/L (3.5-5.1); Sodium 142 mEq/L (136-145); eGFR For African Americans > 60 (> 60); eGFR For Non-African Americans > 60 (> 60)
[2019-08-15] MEDS: Budesonide/Formoterol 80/4.5 1 PUFF INH IH SCH ×2 (07:55→20:40)
[2019-08-15] MEDS: FLUoxetine 20 MG CAPSULE PO SCH (09:32)
[2019-08-15] MEDS: Aspirin Enteric Coated 81 MG Tablet PO SCH (09:32)
[2019-08-15] MEDS: Isosorbide MONOnitrate (24 HR) 30 MG TAB.ER.24H PO SCH (09:32)
[2019-08-15] MEDS: Gabapentin 300 MG CAPSULE PO SCH ×2 (09:32→21:10)
[2019-08-15] MEDS: Acetaminophen 325 MG TABLET PO PRN (21:11)
[2019-08-16] MEDS: *HR* OxyCODONE Immed Rel 5 MG TABLET PO PRN ×3 (01:06→14:36)
[2019-08-16] MEDS: *HR* Heparin 5,000 UNIT/ML VIAL SQ SCH (05:48)
[2019-08-16 07:31] LABS: Basophils # 0.1 K/mcL (0.0-0.2); Basophils % 0.7 %; Eosinophils # 0.2 K/mcL (0.0-0.6); Eosinophils % 1.8 %; Hematocrit 29.2 % (35.3-44.9); Hemoglobin 8.6 g/dL (11.5-15.4); Immature Granulocytes % 4.5 % (0-4); Lymphocytes # 1.2 K/mcL (0.6-4.6); Lymphocytes % 12.1 %; Mean Corpuscular HGB Conc 29.5 g/dL (31.6-35.5); Mean Corpuscular Hemoglobin 27.5 pg (28.0-33.3); Mean Corpuscular Volume 93.3 fL (83.0-100.0); Mean Platelet Volume 8.6 fL (9.4-12.4); Monocytes # 0.4 K/mcL (0.0-1.3); Monocytes % 4.2 %; Neutrophils # 7.7 K/mcL (1.6-8.9); Nucleated Red Blood Cells 0.5 /100 WBC (0); Platelet Count 318 K/mcL (140-400); Red Blood Count 3.13 M/mcL (3.82-4.97); Red Cell Distribution Width 17.4 % (11.5-14.5); Segmented Neutrophils % 76.7 %
[2019-08-16] MEDS: Budesonide/Formoterol 80/4.5 1 PUFF INH IH SCH (07:53)
[2019-08-16] MEDS: FLUoxetine 20 MG CAPSULE PO SCH (08:16)
[2019-08-16] MEDS: Gabapentin 300 MG CAPSULE PO SCH (08:17)
[2019-08-16] MEDS: Isosorbide MONOnitrate (24 HR) 30 MG TAB.ER.24H PO SCH (08:17)
[2019-08-16] MEDS: Aspirin Enteric Coated 81 MG Tablet PO SCH (08:18)
[2019-08-16 11:03] VITALS: BP 93/55
[2019-08-16] MEDS: Ibuprofen 400 MG TABLET PO PRN (12:55)
[2019-08-16] MEDS ORDERED: Aminoglycoside Consult 1 EACH MC ONE (16:20)
== END 2019-08-16 16:21 | disposition home health service (06) | DRG 383 ==
LOC: SUATTDRO → EMEROOARM 11:00 → 3BNU 16:03
PROVIDERS: ADMIT Family Medicine; ATTEND Family Medicine

== ENCOUNTER 2019-08-29 12:00 | Inpatient (IN) ==
[2019-08-29] MEDS: Clindamycin 900 MG/50 ML 900 MG/50 ML IV.SOLN IVPB SCH ×2 (15:07→23:19)
[2019-08-29] MEDS ORDERED: *HR* OxyCODONE Immed Rel 5 MG TABLET PO PRN (15:18)
[2019-08-29] MEDS ORDERED: Ondansetron ODT 4 MG TAB.RAPDIS SL PRN (15:18)
[2019-08-29] MEDS ORDERED: Naloxone 0.4 MG/ML INJ IVP PRN (15:18)
[2019-08-29] MEDS: D5% in 0.45% NACL w KCl 20 MEQ/1,000 ML MLS IVC SCH (16:22)
[2019-08-29] MEDS: *HR* Heparin 5,000 UNIT/ML VIAL SQ SCH (17:03)
[2019-08-30] MEDS: D5% in 0.45% NACL w KCl 20 MEQ/1,000 ML MLS IVC SCH (00:16)
[2019-08-30] MEDS: 0.9 % Sodium Chloride 1,000 ML IVC SCH ×2 (00:24→10:18)
[2019-08-30] MEDS: *HR* Heparin 5,000 UNIT/ML VIAL SQ SCH ×2 (05:47→17:52)
[2019-08-30 08:02] LABS: Basophils # 0.1 K/mcL (0.0-0.2); Basophils % 0.7 %; Eosinophils # 0.1 K/mcL (0.0-0.6); Eosinophils % 1.3 %; Hematocrit 32.6 % (35.3-44.9); Hemoglobin 9.8 g/dL (11.5-15.4); Lymphocytes # 1.1 K/mcL (0.6-4.6); Mean Corpuscular HGB Conc 30.1 g/dL (31.6-35.5); Mean Corpuscular Hemoglobin 27.5 pg (28.0-33.3); Mean Corpuscular Volume 91.6 fL (83.0-100.0); Mean Platelet Volume 8.8 fL (9.4-12.4); Monocytes # 0.3 K/mcL (0.0-1.3); Monocytes % 4.6 %; Neutrophils # 5.1 K/mcL (1.6-8.9); Nucleated Red Blood Cells 0.3 /100 WBC (0); Platelet Count 300 K/mcL (140-400); Red Blood Count 3.56 M/mcL (3.82-4.97); Red Cell Distribution Width 17.9 % (11.5-14.5); Segmented Neutrophils % 75.4 %; White Blood Count 6.7 K/mcL (4.3-11.1)
[2019-08-30 08:03] LABS: INR 1.1; Prothrombin Time 12.8 Seconds (9.4-12.1)
[2019-08-30 08:20] LABS: BUN/Creatinine Ratio 13 (6-26); Blood Urea Nitrogen 12 mg/dL (6-20); Calcium 8.7 mg/dL (8.6-10.3); Carbon Dioxide 27 mEq/L (23-29); Chloride 104 mEq/L (98-107); Glucose 104 mg/dL (70-105); Osmolality,Calculated 292 (280-300); Potassium 4.5 mEq/L (3.5-5.1); Sodium 141 mEq/L (136-145); eGFR For African Americans > 60 (> 60); eGFR For Non-African Americans > 60 (> 60)
[2019-08-30 08:22] LABS: Platelet Estimate Normal (Normal)
[2019-08-30] MEDS: Clindamycin 900 MG/50 ML 900 MG/50 ML IV.SOLN IVPB SCH ×2 (08:56→16:11)
[2019-08-30] MEDS ORDERED: Ringers Solution, Lactated 1,000 ML ONE (17:18)
[2019-08-30] MEDS ORDERED: *HR* HYDROmorphone (PF) 1 MG/ML SYRINGE IVP PRN (18:37)
[2019-08-30] MEDS ORDERED: *HR* Midazolam HCl 2 MG/2 ML VIAL ONE (19:12)
[2019-08-30] MEDS ORDERED: *HR* FentaNYL (PF) 100 MCG/2 ML VIAL ONE (19:13)
[2019-08-30] MEDS ORDERED: Lidocaine -MPF 2% 2 ML VIAL ONE (19:43)
[2019-08-30] MEDS ORDERED: Ondansetron 4 MG/2 ML VIAL ONE (19:56)
[2019-08-30] MEDS ORDERED: Naloxone 0.4 MG/ML INJ IVP PRN (21:23)
[2019-08-30] MEDS ORDERED: Ondansetron ODT 4 MG TAB.RAPDIS SL PRN (21:23)
[2019-08-30] MEDS ORDERED: Furosemide 20 MG TABLET PO PRN (21:23)
[2019-08-30] MEDS: *HR* OxyCODONE Immed Rel 5 MG TABLET PO PRN (22:45)
[2019-08-30] MEDS: Gabapentin 300 MG CAPSULE PO SCH (23:41)
[2019-08-31] MEDS: Clindamycin 900 MG/50 ML 900 MG/50 ML IV.SOLN IVPB SCH ×3 (01:15→17:04)
[2019-08-31] MEDS: *HR* Heparin 5,000 UNIT/ML VIAL SQ SCH ×2 (06:50→17:04)
[2019-08-31] MEDS: FLUoxetine 20 MG CAPSULE PO SCH (08:40)
[2019-08-31] MEDS: Isosorbide MONOnitrate (24 HR) 30 MG TAB.ER.24H PO SCH (08:40)
[2019-08-31] MEDS: Gabapentin 300 MG CAPSULE PO SCH ×2 (08:41→21:42)
[2019-08-31] MEDS ORDERED: Gabapentin 300 MG CAPSULE PO SCH (09:00)
[2019-08-31] MEDS: *HR* OxyCODONE Immed Rel 5 MG TABLET PO PRN (13:23)
[2019-09-01] MEDS: Clindamycin 900 MG/50 ML 900 MG/50 ML IV.SOLN IVPB SCH ×2 (00:20→08:00)
[2019-09-01] MEDS: *HR* OxyCODONE Immed Rel 5 MG TABLET PO PRN ×2 (03:02→11:39)
[2019-09-01 03:10] VITALS: BP 96/64
[2019-09-01] MEDS: *HR* Heparin 5,000 UNIT/ML VIAL SQ SCH (05:53)
[2019-09-01] MEDS: Isosorbide MONOnitrate (24 HR) 30 MG TAB.ER.24H PO SCH (08:04)
[2019-09-01] MEDS: FLUoxetine 20 MG CAPSULE PO SCH (08:05)
[2019-09-01] MEDS: Gabapentin 300 MG CAPSULE PO SCH (08:05)
== END 2019-09-01 13:16 | disposition home or self-care (01) | DRG 383 ==
LOC: 3ANU
PROVIDERS: ADMIT Surgery; ATTEND Surgery

== ENCOUNTER 2019-11-18 20:57 | Inpatient (IN) ==
[2019-11-18] MEDS ORDERED: 0.9 % Sodium Chloride 500 ML IVC ONE (21:24)
[2019-11-18 21:36] LABS: Basophils # 0.1 K/mcL (0.0-0.2); Basophils % 0.3 %; Eosinophils # 0.2 K/mcL (0.0-0.6); Hematocrit 31.1 % (35.3-44.9); Hemoglobin 9.3 g/dL (11.5-15.4); Immature Granulocytes % 0.6 % (0-4); Lymphocytes # 1.1 K/mcL (0.6-4.6); Mean Corpuscular HGB Conc 29.9 g/dL (31.6-35.5); Mean Corpuscular Hemoglobin 28.3 pg (28.0-33.3); Mean Corpuscular Volume 94.5 fL (83.0-100.0); Mean Platelet Volume 9.5 fL (9.4-12.4); Monocytes # 0.5 K/mcL (0.0-1.3); Monocytes % 3.3 %; Neutrophils # 13.4 K/mcL (1.6-8.9); Nucleated Red Blood Cells 0.1 /100 WBC (0); Platelet Count 285 K/mcL (140-400); Red Blood Count 3.29 M/mcL (3.82-4.97); Red Cell Distribution Width 20.2 % (11.5-14.5); Segmented Neutrophils % 87.8 %; White Blood Count 15.2 K/mcL (4.3-11.1)
[2019-11-18 22:29] LABS: BUN/Creatinine Ratio 17 (6-26); Blood Urea Nitrogen 14 mg/dL (6-20); Calcium 8.7 mg/dL (8.6-10.3); Carbon Dioxide 22 mEq/L (23-29); Chloride 106 mEq/L (98-107); Glucose 106 mg/dL (70-105); Osmolality,Calculated 293 (280-300); Sodium 141 mEq/L (136-145); Troponin I < 0.03 ng/mL (< 0.04); eGFR For African Americans > 60 (> 60); eGFR For Non-African Americans > 60 (> 60)
[2019-11-18] MEDS ORDERED: Furosemide 40 MG/4 ML VIAL IVP ONE (23:01)
[2019-11-18] MEDS: Nitroglycerin 0.4 MG TAB.SUBL SL SCH ×3 (23:22→23:35)
[2019-11-19] MEDS ORDERED: Ondansetron 4 MG/2 ML VIAL IVP PRN (00:25)
[2019-11-19] MEDS ORDERED: Naloxone 0.4 MG/ML INJ IVP PRN (00:25)
[2019-11-19] MEDS ORDERED: Acetaminophen 325 MG TABLET PO PRN (00:25)
[2019-11-19 00:59] LABS: Basophils % 0.2 %; Eosinophils # 0.1 K/mcL (0.0-0.6); Hematocrit 30.7 % (35.3-44.9); Hemoglobin 9.1 g/dL (11.5-15.4); Immature Granulocytes % 0.7 % (0-4); Lymphocytes # 1.4 K/mcL (0.6-4.6); Lymphocytes % 9.8 %; Mean Corpuscular HGB Conc 29.6 g/dL (31.6-35.5); Mean Corpuscular Hemoglobin 28.4 pg (28.0-33.3); Mean Corpuscular Volume 95.9 fL (83.0-100.0); Mean Platelet Volume 9.1 fL (9.4-12.4); Monocytes # 0.4 K/mcL (0.0-1.3); Monocytes % 3.1 %; Neutrophils # 11.9 K/mcL (1.6-8.9); Platelet Count 252 K/mcL (140-400); Red Cell Distribution Width 20.2 % (11.5-14.5); Segmented Neutrophils % 85.2 %
[2019-11-19 01:22] LABS: Alanine Aminotransferase 12 Units/L (7-52); Albumin 3.5 g/dL (3.5-5.7); Albumin/Globulin Ratio 1.3 (1.1-2.2); Alkaline Phosphatase 156 Units/L (34-104); Aspartate Amino Transferase 13 Units/L (13-39); BUN/Creatinine Ratio 16 (6-26); Bilirubin,Direct 0.1 mg/dL (0.0-0.2); Bilirubin,Indirect 0.3 mg/dL (0.0-1.0); Bilirubin,Total 0.4 mg/dL (0.3-1.0); Blood Urea Nitrogen 15 mg/dL (6-20); Calcium 8.6 mg/dL (8.6-10.3); Carbon Dioxide 28 mEq/L (23-29); Chloride 105 mEq/L (98-107); Chol/HDL Ratio 2.4 (0-4.9); Cholesterol 113 mg/dL (< 200); Globulin 2.8 g/dL (2.4-3.5); Glucose 110 mg/dL (70-105); HDL Cholesterol 48 mg/dL (40-59); LDL Cholesterol,Calculated 46 mg/dL (0-99); Magnesium 1.7 mg/dL (1.6-2.6); Osmolality,Calculated 295 (280-300); Potassium 3.5 mEq/L (3.5-5.1); Sodium 142 mEq/L (136-145); Total Protein 6.3 g/dL (6.4-8.9); Triglycerides 93 mg/dL (< 150); Troponin I < 0.03 ng/mL (< 0.04); eGFR For African Americans > 60 (> 60); eGFR For Non-African Americans > 60 (> 60)
[2019-11-19] MEDS: *HR* Heparin 5,000 UNIT/ML VIAL SQ SCH ×2 (05:31→16:28)
[2019-11-19 05:51] LABS: Bilirubin,Urine Negative (Negative); Blood,Urine Negative (Negative); Clarity,Urine Clear (Clear); Color,Urine Yellow (Yellow); Glucose,Urine (UA) Normal (Normal); Ketones,Urine Negative (Negative); Leukocyte Esterase,Urine Negative (Negative); Nitrite,Urine Negative (Negative); PH,Urine 6.5 pH Units (5.0-8.0); Protein,Urine Negative (Neg-Trace); Specific Gravity,Urine 1.008 (1.010-1.025); Urobilinogen,Urine Normal (Normal)
[2019-11-19] MEDS: Furosemide 20 MG/2 ML VIAL IVP SCH ×2 (08:55→20:35)
[2019-11-19] MEDS: Isosorbide MONOnitrate (24 HR) 30 MG TAB.ER.24H PO SCH (08:55)
[2019-11-19] MEDS: Aspirin 81 MG TAB.CHEW PO SCH (08:55)
[2019-11-19] MEDS: FLUoxetine 20 MG CAPSULE PO SCH (08:56)
[2019-11-19] MEDS: lisinopriL 5 MG TABLET PO SCH (08:57)
[2019-11-19] MEDS: *HR* HYDROcodone/Acet 5/325 mg TABLET PO PRN ×2 (08:57→23:31)
[2019-11-19] MEDS: cefTRIAXone 2,000 MG in Water for inj. (sterile) 20 ML IVP SCH (16:29)
[2019-11-20 00:59] LABS: Hematocrit 28.2 % (35.3-44.9); Hemoglobin 8.2 g/dL (11.5-15.4); Mean Corpuscular HGB Conc 29.1 g/dL (31.6-35.5); Mean Corpuscular Hemoglobin 28.4 pg (28.0-33.3); Mean Corpuscular Volume 97.6 fL (83.0-100.0); Mean Platelet Volume 9.2 fL (9.4-12.4); Platelet Count 204 K/mcL (140-400); Red Blood Count 2.89 M/mcL (3.82-4.97); White Blood Count 7.4 K/mcL (4.3-11.1)
[2019-11-20 01:17] LABS: BUN/Creatinine Ratio 18 (6-26); Blood Urea Nitrogen 17 mg/dL (6-20); Calcium 8.6 mg/dL (8.6-10.3); Carbon Dioxide 31 mEq/L (23-29); Chloride 105 mEq/L (98-107); Glucose 106 mg/dL (70-105); Osmolality,Calculated 296 (280-300); Potassium 3.9 mEq/L (3.5-5.1); Sodium 142 mEq/L (136-145); eGFR For African Americans > 60 (> 60); eGFR For Non-African Americans > 60 (> 60)
[2019-11-20] MEDS: *HR* Heparin 5,000 UNIT/ML VIAL SQ SCH ×2 (05:28→20:16)
[2019-11-20] MEDS: lisinopriL 5 MG TABLET PO SCH (08:48)
[2019-11-20] MEDS: Aspirin 81 MG TAB.CHEW PO SCH (08:48)
[2019-11-20] MEDS: FLUoxetine 20 MG CAPSULE PO SCH (08:49)
[2019-11-20] MEDS: Isosorbide MONOnitrate (24 HR) 30 MG TAB.ER.24H PO SCH (08:49)
[2019-11-20] MEDS: Furosemide 20 MG/2 ML VIAL IVP SCH ×2 (08:50→20:16)
[2019-11-20] MEDS ORDERED: Azithromycin 250 MG TABLET PO SCH (09:00)
[2019-11-20 10:22] LABS: ABG Base Excess 8 mEq/L (-2 to 3); ABG HCO3 33 mEq/L (21-27); ABG Oxygen Saturation 97 % (95-98); ABG PCO2 49 mmHg (35-45); ABG PH 7.44 pH Units (7.32-7.45); ABG PO2 92 mmHg (85-104); ABG TCO2 35 mEq/L (20-26)
[2019-11-20] MEDS: cefTRIAXone 2,000 MG in Water for inj. (sterile) 20 ML IVP SCH (14:55)
[2019-11-20] MEDS: Doxycycline 100 MG in 0.9 % Sodium Chloride Mini Bag 100 ML IVPB SCH (20:17)
[2019-11-21] MEDS: *HR* HYDROcodone/Acet 5/325 mg TABLET PO PRN ×2 (00:32→20:18)
[2019-11-21 04:30] LABS: Hematocrit 29.4 % (35.3-44.9); Hemoglobin 8.6 g/dL (11.5-15.4); Mean Corpuscular HGB Conc 29.3 g/dL (31.6-35.5); Mean Corpuscular Hemoglobin 28.2 pg (28.0-33.3); Mean Corpuscular Volume 96.4 fL (83.0-100.0); Mean Platelet Volume 9.1 fL (9.4-12.4); Platelet Count 228 K/mcL (140-400); Red Blood Count 3.05 M/mcL (3.82-4.97); Red Cell Distribution Width 19.9 % (11.5-14.5); White Blood Count 7.6 K/mcL (4.3-11.1)
[2019-11-21 04:53] LABS: BUN/Creatinine Ratio 18 (6-26); Blood Urea Nitrogen 16 mg/dL (6-20); Calcium 8.9 mg/dL (8.6-10.3); Carbon Dioxide 30 mEq/L (23-29); Chloride 103 mEq/L (98-107); Glucose 89 mg/dL (70-105); Osmolality,Calculated 293 (280-300); Potassium 3.6 mEq/L (3.5-5.1); Sodium 141 mEq/L (136-145); eGFR For African Americans > 60 (> 60); eGFR For Non-African Americans > 60 (> 60)
[2019-11-21] MEDS: *HR* Heparin 5,000 UNIT/ML VIAL SQ SCH ×2 (06:35→17:02)
[2019-11-21] MEDS: Doxycycline 100 MG in 0.9 % Sodium Chloride Mini Bag 100 ML IVPB SCH (06:35)
[2019-11-21] MEDS: FLUoxetine 20 MG CAPSULE PO SCH (09:56)
[2019-11-21] MEDS: Aspirin 81 MG TAB.CHEW PO SCH (09:56)
[2019-11-21] MEDS: lisinopriL 5 MG TABLET PO SCH (09:56)
[2019-11-21] MEDS: Isosorbide MONOnitrate (24 HR) 30 MG TAB.ER.24H PO SCH (09:57)
[2019-11-21] MEDS: Furosemide 20 MG/2 ML VIAL IVP SCH ×2 (09:57→20:19)
[2019-11-21] MEDS ORDERED: Water for inj. (sterile) 20 ML IV ONE (17:03)
[2019-11-21] MEDS: cefTRIAXone 2,000 MG in Water for inj. (sterile) 20 ML IVP SCH (17:08)
[2019-11-21] MEDS: Doxycycline 100 MG CAPSULE PO SCH (20:19)
[2019-11-22 03:21] LABS: Basophils % 0.4 %; Eosinophils # 0.2 K/mcL (0.0-0.6); Eosinophils % 2.6 %; Hematocrit 29.5 % (35.3-44.9); Hemoglobin 8.6 g/dL (11.5-15.4); Immature Granulocytes % 0.9 % (0-4); Lymphocytes # 1.3 K/mcL (0.6-4.6); Lymphocytes % 16.2 %; Mean Corpuscular HGB Conc 29.2 g/dL (31.6-35.5); Mean Corpuscular Hemoglobin 28.1 pg (28.0-33.3); Mean Corpuscular Volume 96.4 fL (83.0-100.0); Mean Platelet Volume 9.1 fL (9.4-12.4); Monocytes # 0.4 K/mcL (0.0-1.3); Monocytes % 5.6 %; Neutrophils # 5.8 K/mcL (1.6-8.9); Platelet Count 239 K/mcL (140-400); Red Blood Count 3.06 M/mcL (3.82-4.97); Red Cell Distribution Width 19.8 % (11.5-14.5); Segmented Neutrophils % 74.3 %; White Blood Count 7.8 K/mcL (4.3-11.1)
[2019-11-22 03:25] LABS: INR 1.1
[2019-11-22] MEDS: *HR* Heparin 5,000 UNIT/ML VIAL SQ SCH ×2 (04:59→17:45)
[2019-11-22] MEDS: Isosorbide MONOnitrate (24 HR) 30 MG TAB.ER.24H PO SCH (10:33)
[2019-11-22] MEDS: Doxycycline 100 MG CAPSULE PO SCH ×2 (10:33→20:03)
[2019-11-22] MEDS: Aspirin 81 MG TAB.CHEW PO SCH (10:33)
[2019-11-22] MEDS: FLUoxetine 20 MG CAPSULE PO SCH (10:34)
[2019-11-22] MEDS: lisinopriL 5 MG TABLET PO SCH (10:34)
[2019-11-22] MEDS: Furosemide 20 MG/2 ML VIAL IVP SCH ×2 (10:37→20:04)
[2019-11-22] MEDS: cefTRIAXone 2,000 MG in Water for inj. (sterile) 20 ML IVP SCH (17:45)
[2019-11-22] MEDS: *HR* HYDROcodone/Acet 5/325 mg TABLET PO PRN (20:04)
[2019-11-22] MEDS: Budesonide/Formoterol 160/4.5 1 PUFF INH IH SCH (21:24)
[2019-11-22 22:12] LABS: A.galactomannan Ag Index 0.04
[2019-11-23 04:02] LABS: Basophils % 0.7 %; Monocytes % 5.7 %
[2019-11-23 04:04] LABS: Basophils # 0.1 K/mcL (0.0-0.2); Eosinophils # 0.2 K/mcL (0.0-0.6); Eosinophils % 2.7 %; Hematocrit 29.1 % (35.3-44.9); Hemoglobin 8.6 g/dL (11.5-15.4); Immature Granulocytes % 0.8 % (0-4); Lymphocytes # 1.3 K/mcL (0.6-4.6); Lymphocytes % 17.4 %; Mean Corpuscular HGB Conc 29.6 g/dL (31.6-35.5); Mean Corpuscular Hemoglobin 28.7 pg (28.0-33.3); Mean Platelet Volume 8.7 fL (9.4-12.4); Monocytes # 0.4 K/mcL (0.0-1.3); Neutrophils # 5.5 K/mcL (1.6-8.9); Platelet Count 210 K/mcL (140-400); Red Cell Distribution Width 19.7 % (11.5-14.5); Segmented Neutrophils % 72.7 %; White Blood Count 7.5 K/mcL (4.3-11.1)
[2019-11-23 04:23] LABS: Anisocytosis 1+ (Not Present); Macrocytosis Present (Not Present); Microcytosis Present (Not Present); Platelet Estimate Normal (Normal); Poikilocytosis 1+ (Not Present); Stomatocytes 1+ (Not Present)
[2019-11-23 04:26] LABS: BUN/Creatinine Ratio 25 (6-26); Blood Urea Nitrogen 28 mg/dL (6-20); Calcium 9.3 mg/dL (8.6-10.3); Carbon Dioxide 31 mEq/L (23-29); Chloride 104 mEq/L (98-107); Glucose 106 mg/dL (70-105); Osmolality,Calculated 300 (280-300); Potassium 3.9 mEq/L (3.5-5.1); Sodium 142 mEq/L (136-145); eGFR For African Americans > 60 (> 60); eGFR For Non-African Americans 50 (> 60)
[2019-11-23] MEDS: *HR* Heparin 5,000 UNIT/ML VIAL SQ SCH ×2 (05:14→17:11)
[2019-11-23] MEDS: Furosemide 20 MG/2 ML VIAL IVP SCH (09:04)
[2019-11-23] MEDS: Doxycycline 100 MG CAPSULE PO SCH ×2 (09:04→20:46)
[2019-11-23] MEDS: Isosorbide MONOnitrate (24 HR) 30 MG TAB.ER.24H PO SCH (09:04)
[2019-11-23] MEDS: FLUoxetine 20 MG CAPSULE PO SCH (09:04)
[2019-11-23] MEDS: Aspirin 81 MG TAB.CHEW PO SCH (09:04)
[2019-11-23] MEDS: lisinopriL 5 MG TABLET PO SCH (09:04)
[2019-11-23] MEDS: Budesonide/Formoterol 160/4.5 1 PUFF INH IH SCH ×2 (10:14→20:19)
[2019-11-23 11:18] LABS: ANA IgG by ELISA NONE DETECTED (None Detected)
[2019-11-23] MEDS: cefTRIAXone 2,000 MG in Water for inj. (sterile) 20 ML IVP SCH (19:38)
[2019-11-23] MEDS: Cefdinir 300 MG CAPSULE PO SCH (20:44)
[2019-11-24] MEDS: *HR* Heparin 5,000 UNIT/ML VIAL SQ SCH (04:50)
[2019-11-24 07:11] LABS: Serine Protease-3 Antibody 0 AU/mL (0-19)
[2019-11-24] MEDS ORDERED: Furosemide 40 MG TABLET PO SCH (08:00)
[2019-11-24] MEDS: Budesonide/Formoterol 160/4.5 1 PUFF INH IH SCH (08:14)
[2019-11-24] MEDS ORDERED: Lidocaine Viscous Oral Soln 15 ML SOLUTION MM ONE (08:24)
[2019-11-24] MEDS ORDERED: Tetracaine/Benzocaine/Butamben 1 SPRAY AEROSOL MM ONE (08:24)
[2019-11-24] MEDS ORDERED: Ipratropium/Albuterol Neb 3 ML IH ONE (08:24)
[2019-11-24] MEDS ORDERED: *HR* FentaNYL (PF) 100 MCG/2 ML VIAL IVP ONE (08:24)
[2019-11-24] MEDS ORDERED: *HR* Midazolam HCl 5 MG/5 ML VIAL IVP ONE (08:24)
[2019-11-24] MEDS ORDERED: 0.9 % Sodium Chloride 1,000 ML IVC SCH (08:30)
[2019-11-24 08:43] LABS: Hematocrit 30.4 % (35.3-44.9); Mean Corpuscular HGB Conc 29.6 g/dL (31.6-35.5); Mean Corpuscular Hemoglobin 28.6 pg (28.0-33.3); Mean Corpuscular Volume 96.5 fL (83.0-100.0); Mean Platelet Volume 9.1 fL (9.4-12.4); Platelet Count 230 K/mcL (140-400); Red Blood Count 3.15 M/mcL (3.82-4.97); Red Cell Distribution Width 19.8 % (11.5-14.5)
[2019-11-24 08:50] LABS: Prothrombin Time 11.1 Seconds (9.4-12.1)
[2019-11-24 09:01] LABS: BUN/Creatinine Ratio 30 (6-26); Blood Urea Nitrogen 28 mg/dL (6-20); Carbon Dioxide 26 mEq/L (23-29); Chloride 106 mEq/L (98-107); Glucose 89 mg/dL (70-105); Osmolality,Calculated 295 (280-300); Potassium 4.2 mEq/L (3.5-5.1); Sodium 140 mEq/L (136-145); eGFR For African Americans > 60 (> 60); eGFR For Non-African Americans > 60 (> 60)
[2019-11-24 09:31] LABS: Eosinophils # 0.6 K/mcL (0.0-0.6); Monocytes # 0.2 K/mcL (0.0-1.3); Neutrophils # 6.2 K/mcL (1.6-8.9)
[2019-11-24 09:32] LABS: Anisocytosis 1+ (Not Present); Platelet Estimate Normal (Normal); Poikilocytosis 1+ (Not Present)
[2019-11-24] MEDS: Doxycycline 100 MG CAPSULE PO SCH (13:06)
[2019-11-24] MEDS: FLUoxetine 20 MG CAPSULE PO SCH (13:06)
[2019-11-24] MEDS: Aspirin 81 MG TAB.CHEW PO SCH (13:06)
[2019-11-24] MEDS: Cefdinir 300 MG CAPSULE PO SCH (13:06)
[2019-11-24] MEDS: Isosorbide MONOnitrate (24 HR) 30 MG TAB.ER.24H PO SCH (13:07)
[2019-11-24] MEDS: lisinopriL 5 MG TABLET PO SCH (13:07)
[2019-11-24 14:19] LABS: Appearance of Body Fluid Hazy (Clear); Volume of Body Fluid 15 mL
[2019-11-24 14:46] VITALS: BP 102/70
== END 2019-11-24 17:16 | disposition home or self-care (01) | DRG 194 ==
LOC: 2ANU 20:57 → EMEROOARM 20:57 → SUATTDRO 23:35 → 2ANU 23:52 → 2NENU 11-20 15:53 → SUATTDRO 11-20 17:26 → 3ANU 11-22 21:45
PROVIDERS: ADMIT Internal Medicine; ATTEND Internal Medicine

== ENCOUNTER 2020-01-29 15:17 | Inpatient (IN) ==
[2020-01-29] MEDS ORDERED: Aspirin 81 MG TAB.CHEW PO STA (15:50)
[2020-01-29 16:02] LABS: Immature Granulocytes % 0.7 % (0-4)
[2020-01-29 16:03] LABS: White Blood Count 13.8 K/mcL (4.3-11.1)
[2020-01-29 16:04] LABS: Basophils # 0.1 K/mcL (0.0-0.2); Basophils % 0.4 %; Eosinophils # 0.1 K/mcL (0.0-0.6); Eosinophils % 0.9 %; Hematocrit 31.8 % (35.3-44.9); Hemoglobin 8.9 g/dL (11.5-15.4); Lymphocytes % 5.4 %; Mean Corpuscular Hemoglobin 26.6 pg (28.0-33.3); Mean Corpuscular Volume 95.2 fL (83.0-100.0); Mean Platelet Volume 8.6 fL (9.4-12.4); Monocytes # 0.5 K/mcL (0.0-1.3); Monocytes % 3.8 %; Neutrophils # 12.3 K/mcL (1.6-8.9); Platelet Count 250 K/mcL (140-400); Red Blood Count 3.34 M/mcL (3.82-4.97); Red Cell Distribution Width 17.9 % (11.5-14.5); Segmented Neutrophils % 88.8 %
[2020-01-29 16:05] LABS: Hypochromasia Present (Not Present); Lymphocytes # 0.8 K/mcL (0.6-4.6)
[2020-01-29 16:25] LABS: BUN/Creatinine Ratio 13 (6-26); Blood Urea Nitrogen 15 mg/dL (6-20); Calcium 8.7 mg/dL (8.6-10.3); Carbon Dioxide 27 mEq/L (23-29); Chloride 104 mEq/L (98-107); Glucose 133 mg/dL (70-105); Osmolality,Calculated 291 (280-300); Potassium 4.2 mEq/L (3.5-5.1); Sodium 139 mEq/L (136-145); eGFR For African Americans 60 (> 60); eGFR For Non-African Americans 49 (> 60)
[2020-01-29 16:26] LABS: Troponin I < 0.03 ng/mL (< 0.04)
[2020-01-29] MEDS ORDERED: 0.9 % Sodium Chloride 1,000 ML IVC ONE (16:36)
[2020-01-29 17:04] LABS: Bilirubin,Urine Negative (Negative); Blood,Urine Negative (Negative); Clarity,Urine Clear (Clear); Color,Urine Yellow (Yellow); Glucose,Urine (UA) Normal (Normal); Ketones,Urine Negative (Negative); Leukocyte Esterase,Urine Negative (Negative); Nitrite,Urine Negative (Negative); PH,Urine 6.5 pH Units (5.0-8.0); Protein,Urine Negative (Neg-Trace); Specific Gravity,Urine 1.015 (1.010-1.025); Urobilinogen,Urine Normal (Normal)
[2020-01-29] MEDS ORDERED: cefTRIAXone 1,000 MG in Water for inj. (sterile) 10 ML IVP ONE (18:13)
[2020-01-29] MEDS ORDERED: Azithromycin 500 MG in D5% in Water 250 ML IVPB ONE (18:13)
[2020-01-29] MEDS ORDERED: Ondansetron 4 MG/2 ML VIAL IVP PRN (19:30)
[2020-01-29] MEDS ORDERED: Naloxone 0.4 MG/ML INJ IVP PRN (19:30)
[2020-01-29 21:11] LABS: VBG HCO3 29 mEq/L (21-27); VBG PCO2 61 mmHg (41-51); VBG PH 7.28 pH Units (7.32-7.42); VBG PO2 63 mmHg (25-50)
[2020-01-29] MEDS: Gabapentin 300 MG CAPSULE PO SCH (21:33)
[2020-01-29] MEDS: Furosemide 40 MG/4 ML VIAL IVP SCH (21:34)
[2020-01-29] MEDS: *HR* Heparin 5,000 UNIT/ML VIAL SQ SCH (21:34)
[2020-01-29] MEDS: *HR* OxyCODONE/APAP 7.5/325 TABLET PO SCH (21:34)
[2020-01-29] MEDS: Budesonide/Formoterol 80/4.5 1 PUFF INH IH SCH (21:40)
[2020-01-30] MEDS: *HR* Heparin 5,000 UNIT/ML VIAL SQ SCH ×3 (05:21→20:13)
[2020-01-30] MEDS: Budesonide/Formoterol 80/4.5 1 PUFF INH IH SCH ×2 (07:23→19:48)
[2020-01-30 07:30] LABS: Hemoglobin 8.6 g/dL (11.5-15.4)
[2020-01-30 07:32] LABS: Hematocrit 31.8 % (35.3-44.9); Mean Corpuscular Hemoglobin 26.2 pg (28.0-33.3); Mean Platelet Volume 9.9 fL (9.4-12.4); Platelet Count 202 K/mcL (140-400); Red Blood Count 3.28 M/mcL (3.82-4.97); Red Cell Distribution Width 18.3 % (11.5-14.5); White Blood Count 8.4 K/mcL (4.3-11.1)
[2020-01-30] MEDS: Gabapentin 300 MG CAPSULE PO SCH ×2 (08:24→20:13)
[2020-01-30] MEDS: FLUoxetine 20 MG CAPSULE PO SCH (08:24)
[2020-01-30] MEDS: Isosorbide MONOnitrate (24 HR) 30 MG TAB.ER.24H PO SCH (08:24)
[2020-01-30] MEDS: Aspirin 81 MG TAB.CHEW PO SCH (08:24)
[2020-01-30] MEDS: *HR* OxyCODONE/APAP 7.5/325 TABLET PO SCH ×3 (08:25→20:13)
[2020-01-30] MEDS: Furosemide 40 MG/4 ML VIAL IVP SCH (08:26)
[2020-01-30 08:56] LABS: BUN/Creatinine Ratio 14 (6-26); Blood Urea Nitrogen 15 mg/dL (6-20); Calcium 8.4 mg/dL (8.6-10.3); Carbon Dioxide 24 mEq/L (23-29); Chloride 107 mEq/L (98-107); Glucose 69 mg/dL (70-105); Magnesium 2.2 mg/dL (1.6-2.6); Osmolality,Calculated 295 (280-300); Potassium 4.1 mEq/L (3.5-5.1); Sodium 143 mEq/L (136-145); Troponin I < 0.03 ng/mL (< 0.04); eGFR For African Americans > 60 (> 60); eGFR For Non-African Americans 55 (> 60)
[2020-01-30] MEDS ORDERED: cefTRIAXone 1,000 MG in Water for inj. (sterile) 10 ML IVPB SCH (09:00)
[2020-01-30] MEDS ORDERED: Ipratropium/Albuterol Neb 3 ML IH PRN (10:20)
[2020-01-31] MEDS: Acetaminophen 325 MG TABLET PO PRN (03:27)
[2020-01-31] MEDS: *HR* Heparin 5,000 UNIT/ML VIAL SQ SCH ×3 (05:06→20:35)
[2020-01-31 07:24] LABS: Basophils % 0.5 %
[2020-01-31 07:26] LABS: Eosinophils # 0.3 K/mcL (0.0-0.6); Hematocrit 30.1 % (35.3-44.9); Hemoglobin 8.4 g/dL (11.5-15.4); Immature Granulocytes % 0.8 % (0-4); Lymphocytes # 1.3 K/mcL (0.6-4.6); Mean Corpuscular HGB Conc 27.9 g/dL (31.6-35.5); Mean Corpuscular Hemoglobin 26.8 pg (28.0-33.3); Mean Corpuscular Volume 95.9 fL (83.0-100.0); Mean Platelet Volume 9.6 fL (9.4-12.4); Monocytes # 0.5 K/mcL (0.0-1.3); Monocytes % 6.5 %; Platelet Count 229 K/mcL (140-400); Red Blood Count 3.14 M/mcL (3.82-4.97); Red Cell Distribution Width 18.4 % (11.5-14.5); Segmented Neutrophils % 73.2 %; White Blood Count 8.3 K/mcL (4.3-11.1)
[2020-01-31 07:43] LABS: Calcium 8.6 mg/dL (8.6-10.3); Potassium 4.6 mEq/L (3.5-5.1)
[2020-01-31] MEDS: Budesonide/Formoterol 80/4.5 1 PUFF INH IH SCH ×2 (07:44→20:41)
[2020-01-31 07:49] LABS: Neutrophils # 6.1 K/mcL (1.6-8.9)
[2020-01-31] MEDS: Gabapentin 300 MG CAPSULE PO SCH ×2 (10:05→20:34)
[2020-01-31] MEDS: Isosorbide MONOnitrate (24 HR) 30 MG TAB.ER.24H PO SCH (10:06)
[2020-01-31] MEDS: Aspirin 81 MG TAB.CHEW PO SCH (10:06)
[2020-01-31] MEDS: *HR* OxyCODONE/APAP 7.5/325 TABLET PO SCH ×3 (10:06→20:35)
[2020-01-31] MEDS: FLUoxetine 20 MG CAPSULE PO SCH (10:06)
[2020-01-31 10:13] LABS: Anisocytosis 1+ (Not Present); Platelet Estimate Normal (Normal)
[2020-01-31] MEDS ORDERED: Furosemide 40 MG/4 ML VIAL IVP ONE (12:39)
[2020-01-31] MEDS: Furosemide 40 MG/4 ML VIAL IVP SCH (17:03)
[2020-02-01 04:28] LABS: VBG HCO3 32 mEq/L (21-27); VBG PCO2 56 mmHg (41-51); VBG PH 7.37 pH Units (7.32-7.42); VBG PO2 82 mmHg (25-50)
[2020-02-01 04:45] LABS: BUN/Creatinine Ratio 21 (6-26); Blood Urea Nitrogen 20 mg/dL (6-20); Calcium 8.7 mg/dL (8.6-10.3); Carbon Dioxide 31 mEq/L (23-29); Chloride 104 mEq/L (98-107); Glucose 88 mg/dL (70-105); Osmolality,Calculated 294 (280-300); Potassium 4.3 mEq/L (3.5-5.1); Sodium 141 mEq/L (136-145); eGFR For African Americans > 60 (> 60); eGFR For Non-African Americans > 60 (> 60)
[2020-02-01] MEDS: *HR* Heparin 5,000 UNIT/ML VIAL SQ SCH ×3 (05:16→20:52)
[2020-02-01] MEDS: Furosemide 40 MG/4 ML VIAL IVP SCH (07:51)
[2020-02-01] MEDS: Gabapentin 300 MG CAPSULE PO SCH ×2 (07:51→20:52)
[2020-02-01] MEDS: FLUoxetine 20 MG CAPSULE PO SCH (07:51)
[2020-02-01] MEDS: Isosorbide MONOnitrate (24 HR) 30 MG TAB.ER.24H PO SCH (07:52)
[2020-02-01] MEDS: Aspirin 81 MG TAB.CHEW PO SCH (07:52)
[2020-02-01] MEDS: Budesonide/Formoterol 80/4.5 1 PUFF INH IH SCH ×2 (08:07→20:08)
[2020-02-01] MEDS: *HR* OxyCODONE/APAP 7.5/325 TABLET PO SCH ×3 (10:50→20:52)
[2020-02-01] MEDS: Acetaminophen 325 MG TABLET PO PRN (12:11)
[2020-02-01] MEDS: Furosemide 40 MG TABLET PO SCH (15:59)
[2020-02-02] MEDS: Acetaminophen 325 MG TABLET PO PRN (02:56)
[2020-02-02 05:08] LABS: Troponin I < 0.03 ng/mL (< 0.04)
[2020-02-02] MEDS: *HR* Heparin 5,000 UNIT/ML VIAL SQ SCH (05:13)
[2020-02-02 06:46] VITALS: BP 110/75
[2020-02-02 07:33] LABS: BUN/Creatinine Ratio 26 (6-26); Blood Urea Nitrogen 26 mg/dL (6-20); Calcium 9.1 mg/dL (8.6-10.3); Carbon Dioxide 33 mEq/L (23-29); Chloride 102 mEq/L (98-107); Glucose 99 mg/dL (70-105); Osmolality,Calculated 297 (280-300); Potassium 4.4 mEq/L (3.5-5.1); Sodium 141 mEq/L (136-145); eGFR For African Americans > 60 (> 60); eGFR For Non-African Americans 59 (> 60)
[2020-02-02] MEDS: Budesonide/Formoterol 80/4.5 1 PUFF INH IH SCH (08:02)
[2020-02-02] MEDS: Furosemide 40 MG TABLET PO SCH (08:27)
[2020-02-02] MEDS: *HR* OxyCODONE/APAP 7.5/325 TABLET PO SCH (08:27)
[2020-02-02] MEDS: FLUoxetine 20 MG CAPSULE PO SCH (08:27)
[2020-02-02] MEDS: Gabapentin 300 MG CAPSULE PO SCH (08:27)
[2020-02-02] MEDS: Isosorbide MONOnitrate (24 HR) 30 MG TAB.ER.24H PO SCH (08:27)
[2020-02-02] MEDS: Aspirin 81 MG TAB.CHEW PO SCH (08:28)
== END 2020-02-02 15:21 | disposition home health service (06) | DRG 194 ==
LOC: 3BNU 15:17 → EMEROOARM 15:17 → SUATTDRO 18:51 → 3BNU 19:40
PROVIDERS: ADMIT Internal Medicine; ATTEND Internal Medicine

== ENCOUNTER 2020-05-09 16:36 | Observation (INO) ==
[2020-05-09 17:14] LABS: Basophils # 0.1 K/mcL (0.0-0.2); Basophils % 0.6 %; Eosinophils # 0.2 K/mcL (0.0-0.6); Eosinophils % 1.8 %; Hematocrit 36.8 % (35.3-44.9); Hemoglobin 10.6 g/dL (11.5-15.4); Immature Granulocytes % 0.9 % (0-4); Lymphocytes # 1.5 K/mcL (0.6-4.6); Lymphocytes % 17.6 %; Mean Corpuscular HGB Conc 28.8 g/dL (31.6-35.5); Mean Corpuscular Hemoglobin 27.8 pg (28.0-33.3); Mean Corpuscular Volume 96.6 fL (83.0-100.0); Mean Platelet Volume 9.3 fL (9.4-12.4); Monocytes # 0.5 K/mcL (0.0-1.3); Monocytes % 5.4 %; Neutrophils # 6.4 K/mcL (1.6-8.9); Platelet Count 235 K/mcL (140-400); Red Blood Count 3.81 M/mcL (3.82-4.97); Red Cell Distribution Width 18.8 % (11.5-14.5); Segmented Neutrophils % 73.7 %; White Blood Count 8.7 K/mcL (4.3-11.1)
[2020-05-09 17:22] LABS: Prothrombin Time 11.3 Seconds (9.4-12.1)
[2020-05-09 17:25] LABS: Activated Partial Thrombo Time 38.1 Seconds (26.0-36.0)
[2020-05-09 17:38] LABS: BUN/Creatinine Ratio 19 (6-26); Blood Urea Nitrogen 15 mg/dL (6-20); Calcium 9.2 mg/dL (8.6-10.3); Carbon Dioxide 29 mEq/L (23-29); Chloride 106 mEq/L (98-107); Glucose 81 mg/dL (70-105); Osmolality,Calculated 296 (280-300); Potassium 3.7 mEq/L (3.5-5.1); Sodium 143 mEq/L (136-145); eGFR For African Americans > 60 (> 60); eGFR For Non-African Americans > 60 (> 60)
[2020-05-09 17:39] LABS: Troponin I < 0.03 ng/mL (< 0.04)
[2020-05-09] MEDS ORDERED: *HR* Enoxaparin 150 MG/ML SYRINGE SQ STA (18:54)
[2020-05-09] MEDS ORDERED: *HR* OxyCODONE/APAP 5/325 TABLET PO ONE (19:03)
[2020-05-09] MEDS ORDERED: Naloxone 0.4 MG/ML INJ IVP PRN (20:23)
[2020-05-09] MEDS ORDERED: Ondansetron 4 MG/2 ML VIAL IVP PRN (20:23)
[2020-05-09] MEDS ORDERED: *HR* OxyCODONE/APAP 7.5/325 TABLET PO PRN (20:25)
[2020-05-09] MEDS: Budesonide/Formoterol 80/4.5 1 PUFF INH IH SCH (21:54)
[2020-05-09] MEDS ORDERED: Isovue-370 500 ML BOTTLE IVP ONE (22:53)
[2020-05-09] MEDS: Furosemide 20 MG TABLET PO SCH (23:04)
[2020-05-09] MEDS: Gabapentin 300 MG CAPSULE PO SCH (23:04)
[2020-05-10] MEDS ORDERED: cefTRIAXone 1,000 MG in Water for inj. (sterile) 10 ML IVP ONE (01:10)
[2020-05-10] MEDS ORDERED: CefTRIAXone 1,000 MG VIAL ONE (02:46)
[2020-05-10 05:30] LABS: Eosinophils % 2.6 %; Immature Granulocytes % 0.8 % (0-4); Red Cell Distribution Width 18.9 % (11.5-14.5)
[2020-05-10 05:31] LABS: Basophils % 0.5 %; Eosinophils # 0.2 K/mcL (0.0-0.6); Hematocrit 33.5 % (35.3-44.9); Hemoglobin 9.6 g/dL (11.5-15.4); INR 1.1; Lymphocytes # 1.6 K/mcL (0.6-4.6); Lymphocytes % 21.4 %; Mean Corpuscular HGB Conc 28.7 g/dL (31.6-35.5); Mean Corpuscular Hemoglobin 27.7 pg (28.0-33.3); Mean Corpuscular Volume 96.5 fL (83.0-100.0); Mean Platelet Volume 9.5 fL (9.4-12.4); Monocytes # 0.4 K/mcL (0.0-1.3); Monocytes % 5.8 %; Platelet Count 202 K/mcL (140-400); Prothrombin Time 12.7 Seconds (9.4-12.1); Red Blood Count 3.47 M/mcL (3.82-4.97); Segmented Neutrophils % 68.9 %; White Blood Count 7.3 K/mcL (4.3-11.1)
[2020-05-10 05:51] LABS: BUN/Creatinine Ratio 13 (6-26); Blood Urea Nitrogen 12 mg/dL (6-20); Calcium 8.4 mg/dL (8.6-10.3); Carbon Dioxide 27 mEq/L (23-29); Chloride 108 mEq/L (98-107); Chol/HDL Ratio 2.8 (0-4.9); Cholesterol 123 mg/dL (< 200); Glucose 97 mg/dL (70-105); HDL Cholesterol 44 mg/dL (40-59); LDL Cholesterol,Calculated 51 mg/dL (< 100); Magnesium 1.9 mg/dL (1.6-2.6); Osmolality,Calculated 294 (280-300); Potassium 3.7 mEq/L (3.5-5.1); Sodium 142 mEq/L (136-145); Triglycerides 138 mg/dL (< 150); eGFR For African Americans > 60 (> 60); eGFR For Non-African Americans > 60 (> 60)
[2020-05-10 06:03] LABS: Anisocytosis 1+ (Not Present); Hypochromasia Present (Not Present); Platelet Estimate Normal (Normal); Poikilocytosis 1+ (Not Present); Polychromasia 1+ (Not Present)
[2020-05-10] MEDS: Budesonide/Formoterol 80/4.5 1 PUFF INH IH SCH (07:49)
[2020-05-10] MEDS: FLUoxetine 20 MG CAPSULE PO SCH (08:06)
[2020-05-10] MEDS: Furosemide 20 MG TABLET PO SCH ×2 (08:06→16:24)
[2020-05-10] MEDS: Cyanocobalamin (B-12) 1,000 MCG TABLET PO SCH (08:06)
[2020-05-10] MEDS: Aspirin 81 MG TAB.CHEW PO SCH (08:06)
[2020-05-10] MEDS: Gabapentin 300 MG CAPSULE PO SCH ×2 (08:07→20:15)
[2020-05-10] MEDS: lisinopriL 5 MG TABLET PO SCH (08:07)
[2020-05-10] MEDS ORDERED: cefTRIAXone 1,000 MG in Water for inj. (sterile) 10 ML IVP SCH (09:00)
[2020-05-10] MEDS: Piperacillin/Tazobactam 3.375 GM in 0.9 % Sodium Chloride Mini Bag 100 ML IVPB SCH ×3 (09:59→23:43)
[2020-05-10] MEDS: Isosorbide MONOnitrate (24 HR) 30 MG TAB.ER.24H PO SCH (11:58)
[2020-05-10 15:40] LABS: C-Reactive Protein 31 mg/L (Less than 10)
[2020-05-10] MEDS: Budesonide/Formoterol 160/4.5 1 PUFF INH IH SCH (21:57)
[2020-05-11 02:53] LABS: Hemoglobin 9.1 g/dL (11.5-15.4)
[2020-05-11 02:55] LABS: Basophils # 0.1 K/mcL (0.0-0.2); Basophils % 0.8 %; Eosinophils # 0.2 K/mcL (0.0-0.6); Eosinophils % 2.3 %; Hematocrit 31.4 % (35.3-44.9); Immature Granulocytes % 0.8 % (0-4); Lymphocytes # 0.8 K/mcL (0.6-4.6); Lymphocytes % 11.9 %; Mean Corpuscular Hemoglobin 28.2 pg (28.0-33.3); Mean Corpuscular Volume 97.2 fL (83.0-100.0); Mean Platelet Volume 9.3 fL (9.4-12.4); Monocytes # 0.4 K/mcL (0.0-1.3); Monocytes % 6.2 %; Platelet Count 192 K/mcL (140-400); Red Blood Count 3.23 M/mcL (3.82-4.97); Red Cell Distribution Width 19.1 % (11.5-14.5); White Blood Count 6.6 K/mcL (4.3-11.1)
[2020-05-11 03:16] LABS: Neutrophils # 5.2 K/mcL (1.6-8.9)
[2020-05-11 04:25] LABS: Hypochromasia Present (Not Present); Platelet Estimate Normal (Normal)
[2020-05-11] MEDS: *HR* Enoxaparin 40 MG/0.4 ML SYRINGE SQ SCH (05:16)
[2020-05-11] MEDS: Budesonide/Formoterol 160/4.5 1 PUFF INH IH SCH ×2 (07:51→20:21)
[2020-05-11] MEDS: FLUoxetine 20 MG CAPSULE PO SCH (08:04)
[2020-05-11] MEDS: Aspirin 81 MG TAB.CHEW PO SCH (08:04)
[2020-05-11] MEDS: Magnesium Oxide 400 MG TABLET PO SCH (08:04)
[2020-05-11] MEDS: Gabapentin 300 MG CAPSULE PO SCH ×2 (08:05→20:41)
[2020-05-11] MEDS: Cyanocobalamin (B-12) 1,000 MCG TABLET PO SCH (08:05)
[2020-05-11] MEDS: Furosemide 20 MG TABLET PO SCH ×2 (08:05→16:13)
[2020-05-11] MEDS: Piperacillin/Tazobactam 3.375 GM in 0.9 % Sodium Chloride Mini Bag 100 ML IVPB SCH ×2 (08:05→16:13)
[2020-05-11] MEDS: lisinopriL 5 MG TABLET PO SCH (08:05)
[2020-05-11] MEDS: Isosorbide MONOnitrate (24 HR) 30 MG TAB.ER.24H PO SCH (08:05)
[2020-05-11] MEDS: *HR* OxyCODONE/APAP 7.5/325 TABLET PO PRN (08:14)
[2020-05-12] MEDS: Piperacillin/Tazobactam 3.375 GM in 0.9 % Sodium Chloride Mini Bag 100 ML IVPB SCH ×2 (00:02→07:33)
[2020-05-12] MEDS: *HR* Enoxaparin 40 MG/0.4 ML SYRINGE SQ SCH (05:19)
[2020-05-12] MEDS: Budesonide/Formoterol 160/4.5 1 PUFF INH IH SCH (07:21)
[2020-05-12] MEDS: Aspirin 81 MG TAB.CHEW PO SCH (07:33)
[2020-05-12] MEDS: *HR* OxyCODONE/APAP 7.5/325 TABLET PO PRN (07:33)
[2020-05-12] MEDS: Isosorbide MONOnitrate (24 HR) 30 MG TAB.ER.24H PO SCH (07:34)
[2020-05-12] MEDS: Furosemide 20 MG TABLET PO SCH (07:34)
[2020-05-12] MEDS: Magnesium Oxide 400 MG TABLET PO SCH (07:34)
[2020-05-12] MEDS: FLUoxetine 20 MG CAPSULE PO SCH (07:34)
[2020-05-12] MEDS: lisinopriL 5 MG TABLET PO SCH (07:34)
[2020-05-12] MEDS: Gabapentin 300 MG CAPSULE PO SCH (07:34)
[2020-05-12] MEDS: Cyanocobalamin (B-12) 1,000 MCG TABLET PO SCH (07:34)
[2020-05-12 08:39] LABS: Basophils % 0.6 %
[2020-05-12 08:40] LABS: Basophils # 0.1 K/mcL (0.0-0.2); Eosinophils # 0.2 K/mcL (0.0-0.6); Eosinophils % 1.8 %; Immature Granulocytes % 0.6 % (0-4); Lymphocytes % 11.2 %; Mean Corpuscular HGB Conc 28.6 g/dL (31.6-35.5); Mean Corpuscular Hemoglobin 27.2 pg (28.0-33.3); Mean Corpuscular Volume 95.4 fL (83.0-100.0); Mean Platelet Volume 9.3 fL (9.4-12.4); Monocytes # 0.4 K/mcL (0.0-1.3); Monocytes % 4.8 %; Neutrophils # 6.9 K/mcL (1.6-8.9); Nucleated Red Blood Cells 0.2 /100 WBC (0); Platelet Count 209 K/mcL (140-400); Red Blood Count 3.67 M/mcL (3.82-4.97); Red Cell Distribution Width 18.8 % (11.5-14.5); White Blood Count 8.5 K/mcL (4.3-11.1)
[2020-05-12 09:03] LABS: Anisocytosis 1+ (Not Present); Hypochromasia Present (Not Present); Platelet Estimate Normal (Normal)
[2020-05-12 09:59] VITALS: BP 119/78
== END 2020-05-12 14:07 | disposition home health service (06) ==
LOC: EMEROOARM 16:36 → 3BNU 16:36 → SUATTDRO 19:18 → 3BNU 19:55
PROVIDERS: ADMIT Internal Medicine; ATTEND Internal Medicine

== ENCOUNTER 2020-07-16 13:07 | Inpatient (IN) ==
[2020-07-16 16:36] LABS: Basophils % 0.6 %; Nucleated Red Blood Cells 0.3 /100 WBC (0)
[2020-07-16 16:38] LABS: Basophils # 0.1 K/mcL (0.0-0.2); Eosinophils # 0.1 K/mcL (0.0-0.6); Eosinophils % 1.5 %; Hematocrit 34.9 % (35.3-44.9); Immature Granulocytes % 2.1 % (0-4); Lymphocytes # 1.3 K/mcL (0.6-4.6); Mean Corpuscular HGB Conc 28.7 g/dL (31.6-35.5); Mean Corpuscular Hemoglobin 27.5 pg (28.0-33.3); Mean Corpuscular Volume 95.9 fL (83.0-100.0); Mean Platelet Volume 9.2 fL (9.4-12.4); Monocytes # 0.4 K/mcL (0.0-1.3); Monocytes % 4.5 %; Neutrophils # 6.6 K/mcL (1.6-8.9); Platelet Count 242 K/mcL (140-400); Red Blood Count 3.64 M/mcL (3.82-4.97); Red Cell Distribution Width 17.9 % (11.5-14.5); Segmented Neutrophils % 76.3 %; White Blood Count 8.7 K/mcL (4.3-11.1)
[2020-07-16 16:59] LABS: Hypochromasia Present (Not Present); Platelet Estimate Slight Decrease (Normal)
[2020-07-16 17:00] LABS: BUN/Creatinine Ratio 10 (6-26); Blood Urea Nitrogen 9 mg/dL (6-20); Calcium 8.8 mg/dL (8.6-10.3); Carbon Dioxide 31 mEq/L (23-29); Chloride 105 mEq/L (98-107); Glucose 118 mg/dL (70-105); Osmolality,Calculated 294 (280-300); Potassium 3.8 mEq/L (3.5-5.1); Sodium 142 mEq/L (136-145); eGFR For African Americans > 60 (> 60); eGFR For Non-African Americans > 60 (> 60)
[2020-07-16] MEDS ORDERED: cefTRIAXone 1,000 MG in Water for inj. (sterile) 10 ML IVP ONE (17:37)
[2020-07-16] MEDS ORDERED: Naloxone 0.4 MG/ML INJ IVP PRN (18:18)
[2020-07-16] MEDS ORDERED: Ondansetron 4 MG/2 ML VIAL IVP PRN (20:03)
[2020-07-16] MEDS ORDERED: Acetaminophen 325 MG TABLET PO PRN (20:03)
[2020-07-16] MEDS ORDERED: *HR* OxyCODONE Immed Rel 5 MG TABLET PO PRN (20:03)
[2020-07-17] MEDS: *HR* OxyCODONE/APAP 7.5/325 TABLET PO PRN ×2 (00:28→22:03)
[2020-07-17] MEDS: Vancomycin 2,000 MG/520 ML IV.SOLN IVPB SCH ×2 (02:09→13:58)
[2020-07-17] MEDS: *HR* Enoxaparin 40 MG/0.4 ML SYRINGE SQ SCH (05:32)
[2020-07-17] MEDS ORDERED: Cefepime HCl 1,000 MG in Water for inj. (sterile) 10 ML IVP SCH (08:00)
[2020-07-17] MEDS: Furosemide 20 MG TABLET PO SCH ×2 (09:11→17:15)
[2020-07-17] MEDS: Gabapentin 300 MG CAPSULE PO SCH ×2 (09:11→21:59)
[2020-07-17] MEDS: Cyanocobalamin (B-12) 1,000 MCG TABLET PO SCH (09:11)
[2020-07-17] MEDS: Aspirin 81 MG TAB.CHEW PO SCH (09:11)
[2020-07-17] MEDS: Isosorbide MONOnitrate (24 HR) 30 MG TAB.ER.24H PO SCH (09:12)
[2020-07-17] MEDS: lisinopriL 5 MG TABLET PO SCH (09:12)
[2020-07-17] MEDS: Ascorbic Acid 500 MG TABLET PO SCH (09:12)
[2020-07-17] MEDS: Budesonide/Formoterol 160/4.5 1 PUFF INH IH SCH ×2 (09:37→20:53)
[2020-07-17 12:13] LABS: Basophils % 0.3 %; Eosinophils # 0.1 K/mcL (0.0-0.6); Eosinophils % 1.4 %; Hematocrit 31.9 % (35.3-44.9); Hemoglobin 9.3 g/dL (11.5-15.4); Immature Granulocytes % 2.1 % (0-4); Lymphocytes # 0.7 K/mcL (0.6-4.6); Lymphocytes % 11.6 %; Mean Corpuscular HGB Conc 29.2 g/dL (31.6-35.5); Mean Corpuscular Hemoglobin 28.2 pg (28.0-33.3); Mean Corpuscular Volume 96.7 fL (83.0-100.0); Mean Platelet Volume 9.3 fL (9.4-12.4); Monocytes # 0.3 K/mcL (0.0-1.3); Monocytes % 4.8 %; Neutrophils # 4.6 K/mcL (1.6-8.9); Nucleated Red Blood Cells 0.3 /100 WBC (0); Platelet Count 207 K/mcL (140-400); Red Cell Distribution Width 18.1 % (11.5-14.5); Segmented Neutrophils % 79.8 %; White Blood Count 5.8 K/mcL (4.3-11.1)
[2020-07-17 12:19] LABS: BUN/Creatinine Ratio 11 (6-26); Blood Urea Nitrogen 11 mg/dL (6-20); C-Reactive Protein 36 mg/L (Less than 10); Calcium 8.5 mg/dL (8.6-10.3); Carbon Dioxide 30 mEq/L (23-29); Chloride 104 mEq/L (98-107); Glucose 122 mg/dL (70-105); Magnesium 2.1 mg/dL (1.6-2.6); Osmolality,Calculated 293 (280-300); Sodium 141 mEq/L (136-145); eGFR For African Americans > 60 (> 60); eGFR For Non-African Americans 59 (> 60)
[2020-07-18] MEDS: Vancomycin 1,500 MG/265 ML IV.SOLN IVPB SCH (02:32)
[2020-07-18] MEDS: *HR* Enoxaparin 40 MG/0.4 ML SYRINGE SQ SCH (06:26)
[2020-07-18 07:33] LABS: Basophils % 0.6 %; Eosinophils # 0.1 K/mcL (0.0-0.6); Eosinophils % 1.4 %; Hematocrit 34.7 % (35.3-44.9); Immature Granulocytes % 1.8 % (0-4); Lymphocytes % 16.1 %; Mean Corpuscular HGB Conc 28.8 g/dL (31.6-35.5); Mean Corpuscular Hemoglobin 27.1 pg (28.0-33.3); Mean Platelet Volume 8.9 fL (9.4-12.4); Monocytes # 0.3 K/mcL (0.0-1.3); Neutrophils # 4.7 K/mcL (1.6-8.9); Nucleated Red Blood Cells 0.5 /100 WBC (0); Platelet Count 214 K/mcL (140-400); Red Blood Count 3.69 M/mcL (3.82-4.97); Red Cell Distribution Width 18.1 % (11.5-14.5); Segmented Neutrophils % 76.1 %; White Blood Count 6.2 K/mcL (4.3-11.1)
[2020-07-18] MEDS: Budesonide/Formoterol 160/4.5 1 PUFF INH IH SCH ×2 (07:50→19:56)
[2020-07-18 07:51] LABS: BUN/Creatinine Ratio 14 (6-26); Blood Urea Nitrogen 14 mg/dL (6-20); Calcium 9.1 mg/dL (8.6-10.3); Carbon Dioxide 30 mEq/L (23-29); Chloride 104 mEq/L (98-107); Glucose 101 mg/dL (70-105); Osmolality,Calculated 295 (280-300); Potassium 4.2 mEq/L (3.5-5.1); Sodium 142 mEq/L (136-145); eGFR For African Americans > 60 (> 60); eGFR For Non-African Americans 57 (> 60)
[2020-07-18] MEDS: Gabapentin 300 MG CAPSULE PO SCH ×2 (09:22→20:27)
[2020-07-18] MEDS: Aspirin 81 MG TAB.CHEW PO SCH (09:22)
[2020-07-18] MEDS: Ascorbic Acid 500 MG TABLET PO SCH (09:22)
[2020-07-18] MEDS: Isosorbide MONOnitrate (24 HR) 30 MG TAB.ER.24H PO SCH (09:22)
[2020-07-18] MEDS: Furosemide 20 MG TABLET PO SCH ×2 (09:23→16:07)
[2020-07-18] MEDS: cefTRIAXone 1,000 MG in Water for inj. (sterile) 10 ML IVP SCH (09:23)
[2020-07-18] MEDS: Cyanocobalamin (B-12) 1,000 MCG TABLET PO SCH (09:23)
[2020-07-18] MEDS: lisinopriL 5 MG TABLET PO SCH (09:23)
[2020-07-18] MEDS ORDERED: Vancomycin 1 EACH in 0.9 % Sodium Chloride 250 ML IVPB SCH (14:00)
[2020-07-18] MEDS: *HR* OxyCODONE/APAP 7.5/325 TABLET PO PRN (20:27)
[2020-07-19 05:24] LABS: Basophils % 0.5 %; Eosinophils # 0.1 K/mcL (0.0-0.6); Eosinophils % 1.6 %; Hematocrit 32.6 % (35.3-44.9); Hemoglobin 9.5 g/dL (11.5-15.4); Immature Granulocytes % 2.5 % (0-4); Lymphocytes # 1.4 K/mcL (0.6-4.6); Lymphocytes % 18.9 %; Mean Corpuscular HGB Conc 29.1 g/dL (31.6-35.5); Mean Corpuscular Volume 92.6 fL (83.0-100.0); Monocytes # 0.5 K/mcL (0.0-1.3); Monocytes % 6.4 %; Neutrophils # 5.3 K/mcL (1.6-8.9); Nucleated Red Blood Cells 0.8 /100 WBC (0); Platelet Count 204 K/mcL (140-400); Red Blood Count 3.52 M/mcL (3.82-4.97); Red Cell Distribution Width 18.2 % (11.5-14.5); Segmented Neutrophils % 70.1 %; White Blood Count 7.5 K/mcL (4.3-11.1)
[2020-07-19 05:52] LABS: Potassium 4.2 mEq/L (3.5-5.1)
[2020-07-19] MEDS: *HR* Enoxaparin 40 MG/0.4 ML SYRINGE SQ SCH (06:37)
[2020-07-19] MEDS: *HR* OxyCODONE/APAP 7.5/325 TABLET PO PRN (07:59)
[2020-07-19] MEDS: lisinopriL 5 MG TABLET PO SCH (08:01)
[2020-07-19] MEDS: Furosemide 20 MG TABLET PO SCH ×2 (08:01→18:26)
[2020-07-19] MEDS: Cyanocobalamin (B-12) 1,000 MCG TABLET PO SCH (08:01)
[2020-07-19] MEDS: Aspirin 81 MG TAB.CHEW PO SCH (08:01)
[2020-07-19] MEDS: Gabapentin 300 MG CAPSULE PO SCH ×2 (08:02→20:34)
[2020-07-19] MEDS: Isosorbide MONOnitrate (24 HR) 30 MG TAB.ER.24H PO SCH (08:02)
[2020-07-19] MEDS: cefTRIAXone 1,000 MG in Water for inj. (sterile) 10 ML IVP SCH (08:02)
[2020-07-19] MEDS: Ascorbic Acid 500 MG TABLET PO SCH (08:02)
[2020-07-19] MEDS: Vancomycin 1,500 MG/265 ML IV.SOLN IVPB SCH ×2 (08:17→19:41)
[2020-07-19] MEDS: Budesonide/Formoterol 160/4.5 1 PUFF INH IH SCH ×2 (08:40→19:51)
[2020-07-19] MEDS ORDERED: *HR* OxyCODONE/APAP 7.5/325 TABLET PO PRN (14:05)
[2020-07-20] MEDS: *HR* Enoxaparin 40 MG/0.4 ML SYRINGE SQ SCH (05:57)
[2020-07-20 06:07] LABS: Basophils # 0.1 K/mcL (0.0-0.2); Basophils % 0.8 %; Eosinophils # 0.1 K/mcL (0.0-0.6); Eosinophils % 1.5 %; Hematocrit 32.2 % (35.3-44.9); Hemoglobin 9.4 g/dL (11.5-15.4); Immature Granulocytes % 2.1 % (0-4); Lymphocytes # 1.2 K/mcL (0.6-4.6); Lymphocytes % 16.3 %; Mean Corpuscular HGB Conc 29.2 g/dL (31.6-35.5); Mean Corpuscular Hemoglobin 27.7 pg (28.0-33.3); Mean Platelet Volume 9.2 fL (9.4-12.4); Monocytes # 0.4 K/mcL (0.0-1.3); Neutrophils # 5.3 K/mcL (1.6-8.9); Nucleated Red Blood Cells 0.4 /100 WBC (0); Platelet Count 188 K/mcL (140-400); Red Blood Count 3.39 M/mcL (3.82-4.97); Red Cell Distribution Width 18.2 % (11.5-14.5); Segmented Neutrophils % 73.3 %; White Blood Count 7.2 K/mcL (4.3-11.1)
[2020-07-20 06:25] LABS: BUN/Creatinine Ratio 23 (6-26); Blood Urea Nitrogen 23 mg/dL (6-20); Calcium 8.7 mg/dL (8.6-10.3); Carbon Dioxide 30 mEq/L (23-29); Chloride 105 mEq/L (98-107); Glucose 96 mg/dL (70-105); Osmolality,Calculated 296 (280-300); Potassium 4.2 mEq/L (3.5-5.1); Sodium 141 mEq/L (136-145); eGFR For African Americans > 60 (> 60); eGFR For Non-African Americans 56 (> 60)
[2020-07-20 06:38] VITALS: BP 93/63
[2020-07-20] MEDS: Furosemide 20 MG TABLET PO SCH (08:59)
[2020-07-20] MEDS: lisinopriL 5 MG TABLET PO SCH (08:59)
[2020-07-20] MEDS: cefTRIAXone 1,000 MG in Water for inj. (sterile) 10 ML IVP SCH (09:00)
[2020-07-20] MEDS: Vancomycin 1,500 MG/265 ML IV.SOLN IVPB SCH (09:00)
[2020-07-20] MEDS: Gabapentin 300 MG CAPSULE PO SCH (09:01)
[2020-07-20] MEDS: Cyanocobalamin (B-12) 1,000 MCG TABLET PO SCH (09:01)
[2020-07-20] MEDS: Isosorbide MONOnitrate (24 HR) 30 MG TAB.ER.24H PO SCH (09:01)
[2020-07-20] MEDS: Aspirin 81 MG TAB.CHEW PO SCH (09:01)
[2020-07-20] MEDS: Ascorbic Acid 500 MG TABLET PO SCH (09:01)
[2020-07-20] MEDS: Budesonide/Formoterol 160/4.5 1 PUFF INH IH SCH (10:58)
== END 2020-07-20 14:07 | disposition home or self-care (01) | DRG 383 ==
LOC: EMEROOARM 13:07 → 3ANU 13:07 → SUATTDRO 18:44 → 3ANU 19:40
PROVIDERS: ADMIT Internal Medicine; ATTEND Internal Medicine

== ENCOUNTER 2021-02-25 13:41 | Inpatient (IN) ==
[2021-02-25] MEDS ORDERED: Ipratropium/Albuterol Neb 3 ML IH ONE (13:58)
[2021-02-25 14:21] LABS: Basophils # 0.1 K/mcL (0.0-0.2); Basophils % 0.6 %; Eosinophils # 0.2 K/mcL (0.0-0.6); Eosinophils % 1.9 %; Hematocrit 33.6 % (35.3-44.9); Lymphocytes # 1.8 K/mcL (0.6-4.6); Lymphocytes % 20.1 %; Mean Corpuscular HGB Conc 29.8 g/dL (31.6-35.5); Mean Corpuscular Volume 90.8 fL (83.0-100.0); Mean Platelet Volume 8.8 fL (9.4-12.4); Monocytes # 0.5 K/mcL (0.0-1.3); Monocytes % 5.4 %; Neutrophils # 6.3 K/mcL (1.6-8.9); Nucleated Red Blood Cells 0.3 /100 WBC (0); Platelet Count 251 K/mcL (140-400); Red Cell Distribution Width 17.2 % (11.5-14.5); White Blood Count 8.9 K/mcL (4.3-11.1)
[2021-02-25 14:29] LABS: INR 1.1; Prothrombin Time 12.7 Seconds (9.4-12.1)
[2021-02-25 14:46] LABS: BUN/Creatinine Ratio 9 (6-26); Blood Urea Nitrogen 9 mg/dL (6-20); Calcium 8.9 mg/dL (8.6-10.3); Carbon Dioxide 29 mEq/L (23-29); Chloride 101 mEq/L (98-107); Glucose 117 mg/dL (70-105); Osmolality,Calculated 292 (280-300); Potassium 3.4 mEq/L (3.5-5.1); Sodium 141 mEq/L (136-145); Troponin I < 0.03 ng/mL (< 0.04); eGFR For African Americans > 60 (> 60); eGFR For Non-African Americans 58 (> 60)
[2021-02-25] MEDS ORDERED: Isovue-370 500 ML BOTTLE IVP ONE (15:14)
[2021-02-25] MEDS ORDERED: methylPREDNISolone 125 MG/2 ML VIAL IVP ONE (16:35)
[2021-02-25] MEDS: Nitroglycerin 0.4 MG TAB.SUBL SL SCH ×3 (17:23→20:28)
[2021-02-25 18:27] LABS: Adenovirus Not Detected (Not Detect); Bordetella Pertussis Not Detected (Not Detect); Coronavirus 229E Not Detected (Not Detect); Coronavirus HKU1 Not Detected (Not Detect); Coronavirus NL63 Not Detected (Not Detect); Coronavirus OC43 Not Detected (Not Detect); Human Metapneumovirus Not Detected (Not Detect); Human Rhinovirus/Enterovirus Not Detected (Not Detect); Influenza A Subtype 2009 H1 Not Detected (Not Detect); Influenza B Not Detected (Not Detect); Parainfluenza Virus 1 Not Detected (Not Detect); Parainfluenza Virus 2 Not Detected (Not Detect); Parainfluenza Virus 3 Not Detected (Not Detect); Parainfluenza Virus 4 Not Detected (Not Detect); Respiratory Syncytial Virus Not Detected (Not Detect); SARS-CoV-2 Not Detected (Not Detect)
[2021-02-25 18:28] LABS: Chlamydophila pneumoniae Not Detected (Not Detect); Mycoplasma pneumoniae Not Detected (Not Detect)
[2021-02-25] MEDS ORDERED: Naloxone 0.4 MG/ML INJ IVP PRN (20:29)
[2021-02-25] MEDS ORDERED: Ondansetron 4 MG/2 ML VIAL IVP PRN (20:29)
[2021-02-25] MEDS ORDERED: Acetaminophen 325 MG TABLET PO PRN (20:29)
[2021-02-25] MEDS ORDERED: Furosemide 40 MG TABLET PO PRN (20:35)
[2021-02-25] MEDS ORDERED: Azithromycin 500 MG in 0.9 % Sodium Chloride 250 ML IVPB SCH (21:00)
[2021-02-25] MEDS: MethylPREDNISolone 40 MG/ML VIAL IVP SCH (23:21)
[2021-02-25] MEDS: Ipratropium/Albuterol Neb 3 ML IH SCH (23:24)
[2021-02-26] MEDS ORDERED: Furosemide 40 MG/4 ML VIAL IVP ONE (02:21)
[2021-02-26 03:12] LABS: Hematocrit 31.9 % (35.3-44.9); Hemoglobin 9.5 g/dL (11.5-15.4); Mean Corpuscular HGB Conc 29.8 g/dL (31.6-35.5); Mean Corpuscular Hemoglobin 26.9 pg (28.0-33.3); Mean Corpuscular Volume 90.4 fL (83.0-100.0); Mean Platelet Volume 9.2 fL (9.4-12.4); Platelet Count 248 K/mcL (140-400); Red Blood Count 3.53 M/mcL (3.82-4.97); Red Cell Distribution Width 17.3 % (11.5-14.5); White Blood Count 9.7 K/mcL (4.3-11.1)
[2021-02-26] MEDS: Ipratropium/Albuterol Neb 3 ML IH SCH ×4 (03:51→23:03)
[2021-02-26 04:06] LABS: BUN/Creatinine Ratio 11 (6-26); Blood Urea Nitrogen 10 mg/dL (6-20); Calcium 8.7 mg/dL (8.6-10.3); Carbon Dioxide 25 mEq/L (23-29); Chloride 105 mEq/L (98-107); Glucose 180 mg/dL (70-105); Magnesium 2.1 mg/dL (1.6-2.6); Osmolality,Calculated 292 (280-300); Potassium 4.3 mEq/L (3.5-5.1); Sodium 139 mEq/L (136-145); eGFR For African Americans > 60 (> 60); eGFR For Non-African Americans > 60 (> 60)
[2021-02-26] MEDS: MethylPREDNISolone 40 MG/ML VIAL IVP SCH ×4 (05:02→23:06)
[2021-02-26] MEDS ORDERED: Dextrose Gel 15 GM/37.5 ML TUBE PO PRN ×2 (05:44)
[2021-02-26] MEDS ORDERED: *HR* Dextrose 50 % in Water (Vial) 50 ML VIAL IVP PRN (05:44)
[2021-02-26] MEDS ORDERED: D5% in Water 1,000 ML IVC PRN (05:44)
[2021-02-26] MEDS: Gabapentin 300 MG CAPSULE PO SCH ×2 (09:51→19:27)
[2021-02-26] MEDS: Aspirin 81 MG TAB.CHEW PO SCH (09:51)
[2021-02-26] MEDS: Lactobacillus 1 EACH CAP.SPRINK PO SCH (09:52)
[2021-02-26] MEDS: lisinopriL 5 MG TABLET PO SCH (09:52)
[2021-02-26] MEDS: Cyanocobalamin (B-12) 1,000 MCG TABLET PO SCH (09:52)
[2021-02-26] MEDS: Isosorbide MONOnitrate (24 HR) 30 MG TAB.ER.24H PO SCH (09:52)
[2021-02-26] MEDS: Insulin LISPRO 300 UNITS/3 ML VIAL SUBQ SCH ×3 (09:53→18:53)
[2021-02-26] MEDS: *HR* OxyCODONE/APAP 7.5/325 TABLET PO PRN ×2 (11:42→23:06)
[2021-02-26] MEDS: Azithromycin 250 MG TABLET PO SCH (16:10)
[2021-02-26] MEDS: Pantoprazole 40 MG VIAL IVP SCH ×2 (16:11→16:18)
[2021-02-26] MEDS: *HR* Heparin 5,000 UNIT/ML VIAL SQ SCH (18:54)
[2021-02-27] MEDS: Ipratropium/Albuterol Neb 3 ML IH SCH ×2 (04:24→09:44)
[2021-02-27 05:51] LABS: Basophils % 0.1 %; Lymphocytes % 6.7 %; Red Cell Distribution Width 17.2 % (11.5-14.5)
[2021-02-27 05:53] LABS: Hematocrit 30.9 % (35.3-44.9); Hemoglobin 9.1 g/dL (11.5-15.4); Immature Granulocytes % 1.4 % (0-4); Lymphocytes # 1.1 K/mcL (0.6-4.6); Mean Corpuscular HGB Conc 29.4 g/dL (31.6-35.5); Mean Corpuscular Hemoglobin 26.9 pg (28.0-33.3); Mean Corpuscular Volume 91.4 fL (83.0-100.0); Mean Platelet Volume 9.1 fL (9.4-12.4); Monocytes # 0.4 K/mcL (0.0-1.3); Monocytes % 2.3 %; Neutrophils # 14.6 K/mcL (1.6-8.9); Platelet Count 270 K/mcL (140-400); Red Blood Count 3.38 M/mcL (3.82-4.97); Segmented Neutrophils % 89.5 %; White Blood Count 16.3 K/mcL (4.3-11.1)
[2021-02-27] MEDS: *HR* Heparin 5,000 UNIT/ML VIAL SQ SCH (05:57)
[2021-02-27] MEDS: MethylPREDNISolone 40 MG/ML VIAL IVP SCH ×2 (05:57→11:37)
[2021-02-27] MEDS: Pantoprazole 40 MG VIAL IVP SCH (05:57)
[2021-02-27 06:11] LABS: BUN/Creatinine Ratio 16 (6-26); Blood Urea Nitrogen 15 mg/dL (6-20); Calcium 8.6 mg/dL (8.6-10.3); Carbon Dioxide 28 mEq/L (23-29); Chloride 108 mEq/L (98-107); Glucose 180 mg/dL (70-105); Osmolality,Calculated 295 (280-300); Potassium 5.3 mEq/L (3.5-5.1); Sodium 140 mEq/L (136-145); eGFR For African Americans > 60 (> 60); eGFR For Non-African Americans > 60 (> 60)
[2021-02-27] MEDS: Insulin LISPRO 300 UNITS/3 ML VIAL SUBQ SCH ×2 (08:13→11:37)
[2021-02-27] MEDS: Gabapentin 300 MG CAPSULE PO SCH (08:15)
[2021-02-27] MEDS: Azithromycin 250 MG TABLET PO SCH (08:15)
[2021-02-27] MEDS: Lactobacillus 1 EACH CAP.SPRINK PO SCH (08:16)
[2021-02-27] MEDS: Cyanocobalamin (B-12) 1,000 MCG TABLET PO SCH (08:16)
[2021-02-27] MEDS: Isosorbide MONOnitrate (24 HR) 30 MG TAB.ER.24H PO SCH (08:17)
[2021-02-27] MEDS: lisinopriL 5 MG TABLET PO SCH (08:18)
[2021-02-27] MEDS: Aspirin 81 MG TAB.CHEW PO SCH (08:19)
[2021-02-27 10:51] VITALS: BP 102/63; PULSE 88; TEMP 97.9; O2SAT 90
[2021-02-27] MEDS: *HR* OxyCODONE/APAP 7.5/325 TABLET PO PRN (11:37)
== END 2021-02-27 12:29 | disposition home or self-care (01) | DRG 140 ==
LOC: 3BNU 13:41 → EMEROOARM 13:41 → 3BNU 19:55
PROVIDERS: ADMIT Internal Medicine; ATTEND Internal Medicine

== ENCOUNTER 2021-08-21 11:56 | Observation (INO) ==
[2021-08-21] MEDS ORDERED: Ipratropium/Albuterol Neb 3 ML IH ONE ×2 (12:49→17:12)
[2021-08-21] MEDS ORDERED: 0.9 % Sodium Chloride 1,000 ML IVC ONE (12:49)
[2021-08-21] MEDS ORDERED: methylPREDNISolone 125 MG/2 ML VIAL IVP ONE (12:49)
[2021-08-21 13:16] LABS: ABG Base Excess 3 mEq/L (-2 to 3); ABG HCO3 29 mEq/L (21-27); ABG Oxygen Saturation 92 % (95-98); ABG PCO2 49 mmHg (35-45); ABG PH 7.38 pH Units (7.32-7.45); ABG PO2 67 mmHg (85-104); ABG TCO2 31 mEq/L (20-26)
[2021-08-21 13:36] LABS: Lymphocytes % 18.6 %
[2021-08-21 13:37] LABS: Basophils # 0.1 K/mcL (0.0-0.2); Basophils % 0.8 %; Eosinophils # 0.2 K/mcL (0.0-0.6); Eosinophils % 2.3 %; Hemoglobin 9.4 g/dL (11.5-15.4); Immature Granulocytes % 0.9 % (0-4); Lymphocytes # 1.2 K/mcL (0.6-4.6); Mean Corpuscular HGB Conc 28.5 g/dL (31.6-35.5); Mean Corpuscular Hemoglobin 24.7 pg (28.0-33.3); Mean Corpuscular Volume 86.8 fL (83.0-100.0); Mean Platelet Volume 8.9 fL (9.4-12.4); Monocytes # 0.5 K/mcL (0.0-1.3); Monocytes % 7.9 %; Neutrophils # 4.5 K/mcL (1.6-8.9); Platelet Count 227 K/mcL (140-400); Red Cell Distribution Width 19.4 % (11.5-14.5); Segmented Neutrophils % 69.5 %; White Blood Count 6.5 K/mcL (4.3-11.1)
[2021-08-21 13:47] LABS: INR 1.1; Prothrombin Time 12.3 Seconds (9.4-12.1)
[2021-08-21 13:50] LABS: Activated Partial Thrombo Time 34.6 Seconds (26.0-36.0)
[2021-08-21 13:56] LABS: Platelet Estimate Normal (Normal); Polychromasia 1+ (Not Present)
[2021-08-21 13:57] LABS: BUN/Creatinine Ratio 13 (6-26); Blood Urea Nitrogen 13 mg/dL (6-20); Carbon Dioxide 31 mEq/L (23-29); Chloride 103 mEq/L (98-107); Glucose 93 mg/dL (70-105); Hypochromasia Present (Not Present); Osmolality,Calculated 288 (280-300); Poikilocytosis 1+ (Not Present); Potassium 4.4 mEq/L (3.5-5.1); Sodium 139 mEq/L (136-145); Troponin I < 0.03 ng/mL (< 0.04); eGFR For African Americans > 60 (> 60); eGFR For Non-African Americans 56 (> 60)
[2021-08-21 14:18] LABS: Influenza A PCR Negative (Negative); Influenza B PCR Negative (Negative); Resp. Syncytial Virus PCR Negative (Negative)
[2021-08-21 14:19] LABS: SARS-CoV-2 by PCR (In House) Negative (Negative)
[2021-08-21 15:22] LABS: Bilirubin,Urine Negative (Negative); Blood,Urine Negative (Negative); Clarity,Urine Clear (Clear); Color,Urine Light-Yellow (Yellow); Glucose,Urine (UA) Normal (Normal); Ketones,Urine Negative (Negative); Leukocyte Esterase,Urine Negative (Negative); Nitrite,Urine Negative (Negative); PH,Urine 6.5 pH Units (5.0-8.0); Protein,Urine Negative (Neg-Trace); Specific Gravity,Urine 1.015 (1.010-1.025); Urobilinogen,Urine Normal (Normal)
[2021-08-21] MEDS ORDERED: Isovue-370 500 ML BOTTLE IVP ONE (17:43)
[2021-08-21] MEDS ORDERED: Naloxone 0.4 MG/ML INJ IVP PRN (18:11)
[2021-08-21] MEDS ORDERED: Acetaminophen 325 MG TABLET PO PRN (18:11)
[2021-08-21] MEDS ORDERED: Ondansetron 4 MG/2 ML VIAL IVP PRN (18:11)
[2021-08-21] MEDS ORDERED: Perflutren Lipid Microsphere 1.3 ML in 0.9 % Sodium Chloride 8.7 ML IVP PRN (18:29)
[2021-08-21] MEDS ORDERED: Azithromycin 500 MG in D5% in Water 250 ML IVPB SCH (19:00)
[2021-08-21 19:05] LABS: % Iron Saturation 9 % (15-50); Iron 40 mcg/dL (50-170); Magnesium 2.1 mg/dL (1.6-2.6); Transferrin 317 mg/dL (203-362)
[2021-08-21 19:34] LABS: Folate 4.8 ng/mL (3.0-16.0)
[2021-08-21] MEDS: Loratadine 10 MG TABLET PO SCH (20:05)
[2021-08-21 20:41] LABS: Adenovirus Not Detected (Not Detect); Bordetella Pertussis Not Detected (Not Detect); Chlamydophila pneumoniae Not Detected (Not Detect); Coronavirus 229E Not Detected (Not Detect); Coronavirus HKU1 Not Detected (Not Detect); Coronavirus NL63 Not Detected (Not Detect); Coronavirus OC43 Not Detected (Not Detect); Human Metapneumovirus Not Detected (Not Detect); Human Rhinovirus/Enterovirus Not Detected (Not Detect); Influenza A Subtype 2009 H1 Not Detected (Not Detect); Influenza B Not Detected (Not Detect); Mycoplasma pneumoniae Not Detected (Not Detect); Parainfluenza Virus 1 Not Detected (Not Detect); Parainfluenza Virus 2 Not Detected (Not Detect); Parainfluenza Virus 3 Not Detected (Not Detect); Parainfluenza Virus 4 DETECTED (Not Detect); Respiratory Syncytial Virus Not Detected (Not Detect); SARS-CoV-2 Not Detected (Not Detect)
[2021-08-21] MEDS: Ipratropium/Albuterol Neb 3 ML IH SCH (21:00)
[2021-08-21 21:07] LABS: ABG Base Excess 1 mEq/L (-2 to 3); ABG HCO3 25 mEq/L (21-27); ABG Oxygen Saturation 91 % (95-98); ABG PCO2 39 mmHg (35-45); ABG PH 7.42 pH Units (7.32-7.45); ABG PO2 59 mmHg (85-104); ABG TCO2 26 mEq/L (20-26)
[2021-08-21] MEDS ORDERED: *HR* OxyCODONE/APAP 7.5/325 TABLET PO ONE (21:12)
[2021-08-21] MEDS: Gabapentin 300 MG CAPSULE PO SCH (21:38)
[2021-08-22] MEDS: methylPREDNISolone 125 MG/2 ML VIAL IVP SCH ×4 (00:08→23:21)
[2021-08-22] MEDS: Ipratropium/Albuterol Neb 3 ML IH SCH ×5 (03:34→20:16)
[2021-08-22] MEDS ORDERED: Furosemide 20 MG TABLET PO SCH (09:00)
[2021-08-22 09:28] LABS: Basophils % 0.2 %; Hematocrit 33.3 % (35.3-44.9); Monocytes % 4.3 %
[2021-08-22 09:37] LABS: Hemoglobin 9.4 g/dL (11.5-15.4); Immature Granulocytes % 0.9 % (0-4); Lymphocytes # 0.8 K/mcL (0.6-4.6); Mean Corpuscular HGB Conc 28.2 g/dL (31.6-35.5); Mean Corpuscular Hemoglobin 24.5 pg (28.0-33.3); Mean Corpuscular Volume 86.7 fL (83.0-100.0); Mean Platelet Volume 9.7 fL (9.4-12.4); Monocytes # 0.6 K/mcL (0.0-1.3); Platelet Count 244 K/mcL (140-400); Red Blood Count 3.84 M/mcL (3.82-4.97); Red Cell Distribution Width 19.6 % (11.5-14.5); Segmented Neutrophils % 88.6 %; White Blood Count 12.9 K/mcL (4.3-11.1)
[2021-08-22 09:40] LABS: Neutrophils # 11.4 K/mcL (1.6-8.9)
[2021-08-22 09:44] LABS: Alanine Aminotransferase 13 Units/L (7-52); Albumin 3.4 g/dL (3.5-5.7); Albumin/Globulin Ratio 1.2 (1.1-2.2); Alkaline Phosphatase 153 Units/L (34-104); Aspartate Amino Transferase 12 Units/L (13-39); BUN/Creatinine Ratio 18 (6-26); Bilirubin,Total 0.3 mg/dL (0.3-1.0); Blood Urea Nitrogen 16 mg/dL (6-20); Calcium 8.8 mg/dL (8.6-10.3); Carbon Dioxide 29 mEq/L (23-29); Chloride 104 mEq/L (98-107); Globulin 2.8 g/dL (2.4-3.5); Glucose 156 mg/dL (70-105); Osmolality,Calculated 292 (280-300); Potassium 4.3 mEq/L (3.5-5.1); Sodium 139 mEq/L (136-145); Total Protein 6.2 g/dL (6.4-8.9); eGFR For African Americans > 60 (> 60); eGFR For Non-African Americans > 60 (> 60)
[2021-08-22] MEDS: lisinopriL 5 MG TABLET PO SCH (09:58)
[2021-08-22] MEDS: Aspirin 81 MG TAB.CHEW PO SCH (09:58)
[2021-08-22] MEDS: Famotidine 20 MG TABLET PO SCH ×2 (09:58→20:01)
[2021-08-22] MEDS: Cyanocobalamin (B-12) 1,000 MCG TABLET PO SCH (09:58)
[2021-08-22] MEDS: Gabapentin 300 MG CAPSULE PO SCH ×2 (09:58→20:02)
[2021-08-22] MEDS: Isosorbide MONOnitrate (24 HR) 30 MG TAB.ER.24H PO SCH (09:58)
[2021-08-22] MEDS: FLUoxetine 20 MG CAPSULE PO SCH (09:59)
[2021-08-22] MEDS: levoFLOXacin 750 MG/150 ML 750 MG/150 ML BAG IVPB SCH (09:59)
[2021-08-22] MEDS: Loratadine 10 MG TABLET PO SCH ×2 (09:59)
[2021-08-22] MEDS: Magnesium Oxide 400 MG TABLET PO SCH (09:59)
[2021-08-22 10:52] LABS: Anisocytosis 1+ (Not Present); Platelet Estimate Normal (Normal); Poikilocytosis 1+ (Not Present)
[2021-08-22] MEDS: *HR* OxyCODONE/APAP 7.5/325 TABLET PO PRN ×2 (13:26→23:22)
[2021-08-22] MEDS: Budesonide/Formoterol 160/4.5 1 PUFF INH IH SCH (20:16)
[2021-08-23] MEDS: Ipratropium/Albuterol Neb 3 ML IH SCH ×2 (03:57→10:50)
[2021-08-23 08:34] LABS: Hematocrit 31.8 % (35.3-44.9); Hemoglobin 8.8 g/dL (11.5-15.4)
[2021-08-23] MEDS: levoFLOXacin 750 MG/150 ML 750 MG/150 ML BAG IVPB SCH (08:41)
[2021-08-23] MEDS: methylPREDNISolone 125 MG/2 ML VIAL IVP SCH (08:44)
[2021-08-23] MEDS: Loratadine 10 MG TABLET PO SCH ×2 (08:47→08:50)
[2021-08-23] MEDS: *HR* OxyCODONE/APAP 7.5/325 TABLET PO PRN (08:47)
[2021-08-23] MEDS: Isosorbide MONOnitrate (24 HR) 30 MG TAB.ER.24H PO SCH (08:49)
[2021-08-23] MEDS: Gabapentin 300 MG CAPSULE PO SCH (08:49)
[2021-08-23] MEDS: FLUoxetine 20 MG CAPSULE PO SCH (08:49)
[2021-08-23] MEDS: lisinopriL 5 MG TABLET PO SCH (08:49)
[2021-08-23] MEDS: Aspirin 81 MG TAB.CHEW PO SCH (08:49)
[2021-08-23] MEDS: Magnesium Oxide 400 MG TABLET PO SCH (08:49)
[2021-08-23] MEDS: Cyanocobalamin (B-12) 1,000 MCG TABLET PO SCH (08:49)
[2021-08-23] MEDS: Famotidine 20 MG TABLET PO SCH (08:49)
[2021-08-23] MEDS ORDERED: Furosemide 40 MG TABLET PO SCH (09:00)
[2021-08-23] MEDS: Budesonide/Formoterol 160/4.5 1 PUFF INH IH SCH (10:48)
[2021-08-23 11:14] VITALS: BP 115/69; PULSE 84; TEMP 97.7; O2SAT 93
== END 2021-08-23 14:54 | disposition home or self-care (01) ==
LOC: 3BNU 11:56 → EMEROOARM 11:56 → SUATTDRO 18:10 → 3BNU 18:40
PROVIDERS: ADMIT Student in an Organized Health Care Education/Training Program; ATTEND Internal Medicine